=== PATIENT | female | born 1935 | race Caucasian/White ===

== ENCOUNTER 2023-11-04 12:55 | Outpatient (OUT) | payer MEDICARE, OTHER, SELFPAY ==
--- NOTE | 2023-11-04 12:58 | US_ITS ---
The [address] [address] Patient Name: LUIS FELIPE DAVIS MRN: [id number] date: 1935 Sex: F Assigned Patient Location: US Current Patient Location: US Accession/Order Number: [id number] Exam Date: 11/04/2023 13:00 Report Date: 11/04/2023 14:57 At the request of: DUY SARABIA Procedure: US thyroid EXAMINATION: US thyroid HISTORY: Thyroid Nodule E04.1 COMPARISON: No relevant comparison available. TECHNIQUE: Sonographic images of the thyroid gland were obtained. FINDINGS: The right thyroid lobe measures 4.7 x 1.5 x 1.0 cm. Heterogeneous echotexture. No focal nodules. The thyroid isthmus measures 2 mm, heterogeneous. No focal nodule. Left thyroid lobe measures 3.3 x 1.7 x 1.2 cm. 2 focal nodules over 5 mm. One is cystic second lesion: Nodule 1:0.3 x 0.6 x 0.4 cm. Solid, hyperechoic, wide, smooth margins, no calcifications. TR 3 US/US thyroid IMPRESSION: Subcentimeter thyroid nodules the most suspicious 6 mm TR 3 nodule TI-RADS: The [employer] TI-RADS committee's white paper recommendations for thyroid lesions classified as TR3 (mildly suspicious) are listed below: > 1.5 cm. Follow-up ultrasound in 1, 3, and 5 years. > 2.5 cm. FNA. J. Am Simón Radiol 2017;14:587-595. Electronically authenticated by: RUDY TEAGUE Date: 11/04/2023 14:57
== END 2023-11-04 12:56 | disposition home or self-care (01) ==
LOC: US 12:55
PROVIDERS: PCP Internal Medicine; Visit Provider Internal Medicine
DX: E04.1 Nontoxic single thyroid nodule (principal)
CPT/HCPCS: 76536

== ENCOUNTER 2023-11-16 10:23 | Outpatient (OUT) | payer MEDICARE, OTHER, SELFPAY ==
--- OUTSIDE RECORDS SUMMARY | 2023-11-16 10:43 | XMS_ITS | CCD ---
Author Organization [facility] Care Team Providers Care Wax Bleacher Name Role Phone MD Bossman Robledo Attending Provider Chetna Dueñas Unavailable Lazaro Bergman Unavailable ALMA ., DR SANDHYA Mehta Consulting Unavailable BALL, DR GORDILLO Primary Care Unavailable GIRALDO ., DR SANDHYA Mehta Attending Unavailable GIRALDO ., DR SANDHYA Mehta Admitting Unavailable REA ., SANTO Aguila Unavailable CORNELL, DR GORDILLO Primary Care Unavailable GIRALDO ., DR SANDHYA Mehta Attending Unavailable GIRALDO ., DR SANDHYA Mehta Admitting Unavailable REA ., SANTO Aguila Unavailable CORNELL, DR GORDILLO Primary Care Unavailable GIRALDO ., DR SANDHYA Mehta Attending Unavailable GIRALDO ., DR SANDHYA Mehta Admitting Unavailable BALL, DR GORDILLO Primary Care Unavailable HALKER ., JOANNA Attending Unavailable HALKER ., JOANNA Admitting Unavailable BALL, DR GORDILLO Primary Care Unavailable HALKER ., JOANNA Attending Unavailable HALKER ., JOANNA Admitting Unavailable HALKER ., JOANNA Consulting Unavailable CORNELL, DR GORDILLO Primary Care Unavailable LAKSHMIPATHY ., BECCA Attending Bhargavi vailable LAKSHMIPATHY ., BECCA Admitting Bhargavi vailable REA ., SANTO Consulting Unavailable CORNELL, DR GORDILLO Primary Care Unavailable GIRALDO ., DR SANDHYA Mehta Attending Unavailable GIRALDO ., DR SANDHYA Mehta Admitting Unavailable GIRALDO ., DR SANDHYA Mehta Consulting Unavailable CORNELL, DR GORDILLO Primary Care Unavailable GIRALDO ., DR SANDHYA Mehta Attending Unavailable GIRALDO ., DR SANDHYA Mehta Admitting Unavailable BALL, DR GORDILLO Consulting Unavailable BALL, DR GORDILLO Primary Care Unavailable BALL, DR GORDILLO Attending Unavailable BALL, DR GORDILLO Admitting Unavailable HEGG, JASON Consulting Unavailable BALL, DR GORDILLO Consulting Unavailable BALL, DR GORDILLO Primary Care Unavailable BALL, DR GORDILLO Attending Unavailable BALL, DR GORDILLO Admitting Unavailable BALL, DR GORDILLO Consulting Unavailable BALL, DR GORDILLO Primary Care Unavailable BALL, DR GORDILLO Attending Unavailable BALL, DR GORDILLO Admitting Unavailable WEST, DR RUDY Jang Consulting Unavailable CORNELL, DR GORDILLO Consulting Unavailable CORNELL, DR GORDILLO Primary Care Unavailable CORNELL, DR GORDILLO Attending Unavailable CORNELL, DR GORDILLO Admitting Unavailable RONI, DR VIBHA Streeter Consulting Unavailable BALL, DR GORDILLO Consulting Unavailable BALL, DR GORDILLO Primary Care Unavailable BALL, DR GORDILLO Attending Unavailable BALL, DR GORDILLO Admitting Unavailable HOTitus ., DR GONZALEZ Consulting Unavailable HOTitus ., DR GONZALEZ Attending Unavailable HOY ., DR GONZALEZ Admitting Unavailable BALL, DR GORDILLO Primary Care Unavailable WEST, DR RUDY Jang Consulting Unavailable DERBEVERLY, EMILEE Consulting Unavailable CEDRIC ., ROEL Consulting Unavailable BRISA, NHAN Consulting Unavailable ALMA ., DR SANDHYA Mehta Consulting Unavailable CORNELL, DR GORDILLO Primary Care Unavailable ALMA ., DR SANDHYA Mehta Attending Unavailable ALMA ., DR SANDHYA Mehta Admitting Unavailable Yeimi HOLLIS, David Neely Attending Unavailable Neida Whitfield Unavailable Allergies Allergy Classification Reported Allergen(s) Allergy Type Date of Onset Reaction(s) Facility (14 sources) Penicillin G Drug Allergy Unknown [facility] [employer] Other (17 sources) Sulfonamides (Antibiotic) Propensity to adverse reactions Unknown [facility] [employer] Other (2 sources) Allopurinol Drug Allergy 3 [facility] Repository (2 sources) Penicillins Drug allergy (disorder) 3 [facility] Repository (2 sources) Sulfonamides (Antibiotic) Drug allergy (disorder) 3 [facility] Repository (7 sources) Substance with penicillin structure and antibacterial mechanism of action (substance) Drug allergy Unknown [facility] [employer] Other (7 sources) Substance with sulfonamide structure and antibacterial mechanism of action (substance) Drug allergy Unknown [facility] [employer] Other Medications Current Medications Medication Drug Class(es) Dates Sig (Normalized) Sig (Original) acetaminophen 300 mg / codeine phosphate 30 mg oral tablet (5 sources) Opioid Agonist Start: 05-19-2023 take 1 tablet by mouth once daily as needed Acetaminophen-Cod eine 300-30 MG 1 tablet as needed Orally qd as needed May, Active benzonatate 200 mg oral capsule (3 sources) Non-narcotic Antitussive Start: 07-03-2023 take 1 capsule by mouth every eight hours Benzonatate 200 MG 1 capsule Orally Three times a day Jun, Active cephalexin 500 mg oral capsule (3 sources) Cephalosporin Antibacterial Start: 07-03-2023 take 1 capsule by mouth every eight hours Cephalexin 500 MG 1 capsule Orally tid for 10 day(s) Jun, Active fluticasone propionate 0.05 mg/actuat metered dose nasal spray (3 sources) Corticosteroid Start: 07-03-2023 take 2 spray(s) nasal route once daily Fluticasone Propionate 50 MCG/ACT 2 sprays Nasally Once a day for 14 day(s) Jun, Active FreeStyle Lite Test - (16 sources) FreeStyle Lite Test - USE 1 STRIP TO CHECK GLUCOSE ONCE DAILY for 50 Active glimepiride 4 mg oral tablet (20 sources) Sulfonylurea Start: 07-18-2022 Glimepiride 4 MG 1 1/2 Orally Once a day, 30 minutes prior to bkfst Jul, Active Glimepiride 4 MG 1 1/2 tablets 30 minutes prior to bkfst Orally Once a day Not-Taking/PRN hydroCHLOROthiazide 25 mg oral tablet (17 sources) Thiazide Diuretic take 1 tablet by mouth once daily hydroCHLOROthiazide 25 MG Take 1 tablet by mouth once daily Active lisinopril 10 mg oral tablet (20 sources) Angiotensin Converting Enzyme Inhibitor Start: 2022 take 1 tablet by mouth every twenty-four hours Lisinopril 10 MG 1 tablet Orally Once a day Jul, Active loratadine 10 mg oral tablet (2 sources) Start: 2022 take 1 tablet by mouth once daily Claritin 10 MG 1 tablet Orally Once a day for 30 days Sep, Active metFORMIN hydrochloride 500 mg oral tablet (13 sources) Biguanide metFORMIN HCl 50 0 MG Oral Active metFORMIN HCl 50 0 MG Oral Active pioglitazone 15 mg oral tablet (20 sources) Peroxisome Proliferator Receptor alpha Agonist, Peroxisome Proliferator Receptor gamma Agonist, Thiazolidinedione Start: 07-18-2022 take 1 tablet by mouth every twenty-four hours Pioglitazone HCl 15 MG 1 tablet Orally Once a day Jul, Active sertraline 100 mg oral tablet (17 sources) Serotonin Reuptake Inhibitor take 1 tablet by mouth once daily at bedtime Sertraline HCl 100 MG TAKE 1 TABLET BY MOUTH AT BEDTIME Orally Once a day for 30 days Active traMADol hydrochloride 50 mg oral tablet (5 sources) Opioid Agonist Start: 11-01-2022 take 1 tablet by mouth every twenty-four hours traMADol HCl 50 MG 1 tablet as needed Orally Once a day for 30 days Oct, Active Completed/Discontinued Medications Medication Drug Class(es) Dates Sig (Normalized) Sig (Original) carvedilol 12.5 mg oral tablet (17 sources) alpha-Adrenergic Gilbert, beta-Adrenergic Gilbert take 1 tablet by mouth twice daily as needed Carvedilol 12.5 MG Take 1 tablet by mouth twice daily Not-Taking/PRN Dimethyl Sulfoxide (17 sources) Dimethyl Sulfoxi de for 30 Not-Taking/PRN Dimethyl Sulfoxi de for 30 Not-Taking Dimethyl Sulfoxi de for 30 Active ipratropium bromide 0.042 mg/actuat metered dose nasal spray (7 sources) Anticholinergic Start: 03-16-2023 take 2 spray(s) nasal route before mealtime Ipratropium Douglas 0.06 % 2 sprays in each nostril Nasally before meals for 30 days Mar, Not-Taking/PRN Start: 03-16-2023 take 2 spray(s) nasa l route before mealtime Ipratropium Douglas 0.06 % 2 sprays in each nostril Nasally before meals for 30 days Mar, Active omeprazole 40 mg delayed release oral capsule (20 sources) Proton Pump Inhibitor Start: 07-18-2022 take 1 capsule by mouth once daily Omeprazole 40 MG 1 capsule 30 minutes before morning meal Orally Once a day Jul, Not-Taking/PRN Omeprazole 20 MG Oral for 90 Not-Taking/PRN temazepam 15 mg oral capsule (16 sources) Benzodiazepine take 1 capsule by mouth every twenty-four hours Temazepam 15 MG 1 capsule at bedtime as needed Orally Once a day Not-Taking/PRN Problems Active Problems Problem Classification Problem Date Documented Da te Episodic/Chronic Abdominal hernia (2 sources) Diaphragmatic hernia; Translations: [Diaphragmatic hernia without obstruction or gangrene] Episodic Acute bronchitis (2 sources) Acute bronchitis; Translations: [Acute bronchitis due to other specified organisms] Episodic Allergic reactions (2 sources) Urticaria, unspecified Episodic Anxiety disorders (20 sources) Generalized anxiety disorder; Translations: [Generalized anxiety disorder] Chronic Cancer of uterus (20 sources) Malignant neoplasm of endometrium of corpus uteri ; Translations: [Malignant neoplasm of endometrium] Chronic Chronic kidney disease (20 sources) Chronic kidney disease stage 3; Translations: [Stage 3 chronic kidney disease, unspecified whether stage 3a or 3b CKD] Chronic Coagulation and hemorrhagic disorders (16 sources) Primary thrombocytopenia; Translations: [Other primary thrombocytopenia] Chronic Diabetes mellitus with complications (20 sources) Type 2 diabetes mellitus; Translations: [Type 2 diabetes mellitus with hyperglycemia] Onset: 01-07-2015 Chronic Diabetes mellitus without complication (11 sources) Type 2 diabetes mellitus without complications; Translations: [Type 2 diabetes mellitus without complication] Onset: 03-28-2014 Chronic Diseases of mouth; excluding dental (18 sources) Cheilitis; Translations: [Diseases of lips] Episodic Disorders of lipid metabolism (20 sources) Hypercholesterolemia; Translations: [Pure hypercholesterolemia, unspecified] Onset: 12-09-2014 Chronic Esophageal disorders (20 sources) Gastro-esophageal reflux disease with esophagitis; Translations: [Gastro-esophageal reflux disease with esophagitis, without bleeding] Chronic Essential hypertension (20 sources) Essential hypertension; Translations: [Essential (primary) hypertension] Onset: 05-16-2015 Chronic Hypertension with complications and secondary hypertension (20 sources) Chronic kidney disease due to hypertension; Translations: [Hypertensive chronic kidney disease with stage 1 through stage 4 chronic kidney disease, or unspecified chronic kidney disease] Onset: 06-24-2022 Chronic Immunizations and screening for infectious disease (5 sources) Encounter for immunization; Translations: [Contact with and (suspected) exposure to other viral communicable diseases] Onset: 04-05-2017 Resolved: 06-30-2021 Episodic Malaise and fatigue (20 sources) Fatigue; Translations: [Other fatigue] Onset: 04-05-2017 Episodic Menopausal disorders (2 sources) Primary ovarian failure; Translations: [Other primary ovarian failure] Onset: 04-05-2017 Chronic Mood disorders (4 sources) Dysthymia; Translations: [Dysthymic disorder] Onset: 07[birth year]11-1959 Chronic Nonspecific chest pain (4 sources) Chest pain; Translations: [Other chest pain] Resolved: 02-13-2020 Episodic Osteoarthritis (20 sources) Osteoarthritis of joint of right shoulder region; Translations: [Primary osteoarthritis, right shoulder] Onset: 04-07-2015 Chronic Other acquired deformities (1 source) Other forms of scoliosis, lumbar region; Translations: [OTHER FORMS SCOLIOSIS LUMBAR REGION] Onset: 05-23-2022 Chronic Other aftercare (15 sources) H/O: high risk medication; Translations: [Other custodial (current) drug therapy] Episodic Other aftercare (2 sources) Long-term current use of drug therapy; Translations: [Other custodial (current) drug therapy] Episodic Other aftercare (2 sources) Other custodial (current) drug therapy; Translations: [High risk medication use] Episodic Other and unspecified benign neoplasm (16 sources) Adenomatous polyp of colon ; Translations: [Benign neoplasm of colon, unspecified] Episodic Other and unspecified benign neoplasm (17 sources) Polyp of colon; Translations: [Polyp of colon] Episodic Other and unspecified benign neoplasm (2 sources) Benign neoplasm of colon; Translations: [Benign neoplasm of colon, unspecified] Episodic Other and unspecified benign neoplasm (1 source) Polyp of colon; Translations: [Colon polyp] Episodic Other circulatory disease (17 sources) History of cerebrovascular accident without residual deficits; Translations: [Personal history of transient ischemic attack (TIA), and cerebral infarction without residual deficits] Episodic Other circulatory disease (2 sources) Personal history of transient ischemic attack (TIA), and cerebral infarction without residual deficits; Translations: [PERS HX TIA AND CI NO RESID DEFICIT] Onset: 08-06-2022 Episodic Other congenital anomalies (2 sources) Congenital spondylolysis of lumbosacral region; Translations: [Congenital spondylolysis, lumbosacral region] Onset: 07-11-1959 Chronic Other connective tissue disease (15 sources) Pain in limb; Translations: [Pain in right foot] Episodic Other connective tissue disease (2 sources) Pain in right foot; Translations: [Pain in right foot] Episodic Other connective tissue disease (1 source) Pain in right foot; Translations: [Acute pain of right foot] Episodic Other ear and sense organ disorders (19 sources) Impacted cerumen; Translations: [Impacted cerumen, bilateral] Onset: 12-12-2017 Episodic Other ear and sense organ disorders (2 sources) Impacted cerumen, left ear Episodic Other ear and sense organ disorders (1 source) Impacted cerumen, bilateral; Translations: [Ceruminosis, bilateral] Episodic Other gastrointestinal disorders (16 sources) Irritable bowel syndrome with diarrhea; Translations: [Irritable bowel syndrome with diarrhea] Chronic Other gastrointestinal disorders (2 sources) Irritable bowel syndrome; Translations: [Irritable bowel syndrome without diarrhea] Chronic Other injuries and conditions due to external causes (2 sources) History of fall; Translations: [History of falling] Episodic Other lower respiratory disease (17 sources) Solitary nodule of lung; Translations: [Solitary pulmonary nodule] Onset: 01-20-2020 Episodic Other lower respiratory disease (2 sources) Dyspnea; Translations: [Other forms of dyspnea] Episodic Other lower respiratory disease (1 source) Solitary pulmonary nodule; Translations: [Lung nodule] Episodic Other nervous system disorders (16 sources) Chronic pain; Translations: [Other chronic pain] Chronic Other nervous system disorders (1 source) Other specified polyneuropathies; Translations: [OTHER SPECIFIED POLYNEUROPATHIES] Onset: 05-23-2022 Chronic Other nervous system disorders (2 sources) Polyneuropathy; Translations: [Polyneuropathy, unspecified] Chronic Other nervous system disorders (16 sources) Paresthesia; Translations: [Paresthesia of skin] Episodic Other nervous system disorders (4 sources) Paresthesia of skin; Translations: [PARESTHESIA OF SKIN] Onset: 11-04-2022 Episodic Other non-traumatic joint disorders (15 sources) Shoulder joint pain; Translations: [Pain in right shoulder] Episodic Other non-traumatic joint disorders (17 sources) Arthralgia of the pelvic region and thigh; Translations: [Pain in left hip] Episodic Other non-traumatic joint disorders (2 sources) Pain in left hip; Translations: [PAIN IN LEFT HIP] Onset: 09-01-2022 Episodic Other non-traumatic joint disorders (1 source) Pain in right shoulder; Translations: [Pain in right shoulder] Episodic Other nutritional; endocrine; and metabolic disorders (18 sources) Obese class I; Translations: [Obesity, unspecified] Onset: 03-22-2016 Chronic Other nutritional; endocrine; and metabolic disorders (1 source) Obesity, unspecified Chronic Other nutritional; endocrine; and metabolic disorders (2 sources) Simple obesity ; Translations: [Other obesity due to excess calories] Onset: 03-22-2016 Chronic Other nutritional; endocrine; and metabolic disorders (2 sources) Obesity; Translations: [Obesity, unspecified] Chronic Other nutritional; endocrine; and metabolic disorders (8 sources) Body mass index 30+ - obesity; Translations: [Body mass index 31.0-31.9, adult] Onset: 03-22-2016 Chronic Other nutritional; endocrine; and metabolic disorders (4 sources) Obesity caused by energy imbalance; Translations: [Other obesity due to excess calories] Chronic Other nutritional; endocrine; and metabolic disorders (1 source) Other obesity due to excess calories Chronic Other nutritional; endocrine; and metabolic disorders (1 source) Body mass index (BMI) 31.0-31.9, adult Chronic Other screening for suspected conditions (not mental disorders or infectious disease) (4 sources) Abnormal findings on diagnostic imaging of breast; Translations: [Other abnormal and inconclusive findings on diagnostic imaging of breast] Onset: 04-18-2017 Episodic Other upper respiratory disease (7 sources) Vasomotor rhinitis; Translations: [Vasomotor rhinitis] Chronic Other upper respiratory disease (1 source) Vasomotor rhinitis Chronic Other upper respiratory infections (3 sources) Acute sinusitis; Translations: [Acute sinusitis, unspecified] Onset: 12-09-2014 Episodic Residual codes; unclassified (2 sources) Tobacco user; Translations: [Tobacco use] Episodic Residual codes; unclassified (1 source) Asymptomatic menopausal state Episodic Rheumatoid arthritis and related disease (2 sources) Inflammatory polyarthropathy; Translations: [Unspecified inflammatory polyarthropathy] Onset: 04-21-2015 Chronic Skin and subcutaneous tissue infections (18 sources) Impetigo follicularis ; Translations: [Bockhart's impetigo] Episodic Spondylosis; intervertebral disc disorders; other back problems (20 sources) Lumbar spondylosis; Translations: [Spondylosis without myelopathy or radiculopathy, lumbar region] Onset: 05-25-2022 Chronic Spondylosis; intervertebral disc disorders; other back problems (7 sources) Muscle spasm of back; Translations: [Spinal stenosis, lumbar region without neurogenic claudication] Onset: 05-18-2022 Episodic Sprains and strains (20 sources) Strain of muscle, fascia and tendon of the posterior muscle group at thigh level, left thigh, initial encounter; Translations: [Sprain of ankle] Episodic Thyroid disorders (20 sources) Non-toxic uninodular goiter; Translations: [Nontoxic single thyroid nodule] Onset: 11-09-2022 Chronic Transient cerebral ischemia (19 sources) Transient cerebral ischemia; Translations: [Transient cerebral ischemic attack, unspecified] Onset: 11-01-2022 Chronic Unclassified (4 sources) LOW BACK PAIN, UNSPECIFIED; Translations: [LOW BACK PAIN, UNSPECIFIED] Onset: 08-30-2022 Unclassified (1 source) CONTACT W/AND (SUSP) EXPOS COVID-19; Translations: [CONTACT W/AND (SUSP) EXPOS COVID-19] Onset: 08-06-2022 Unclassified (1 source) CHRN KIDNEY DISEASE STG 3 UNSP; Translations: [CHRN KIDNEY DISEASE STG 3 UNSP] Onset: 06-28-2022 Past or Other Problems Problem Classification Problem Date Documented Da te Episodic/Chronic Abdominal pain (4 sources) Lower abdominal pain; Translations: [Lower abdominal pain, unspecified] Onset: 06-27-2017 Episodic Chronic kidney disease (9 sources) Chronic kidney disease; Translations: [Stage 3 chronic kidney disease, unspecified whether stage 3a or 3b CKD] Esophageal disorders (15 sources) Esophageal disorders; Translations: [Gastroesophageal reflux disease with esophagitis without hemorrhage] Other aftercare (1 source) adjunct faculty for medical terminology (current) use of aspirin; Translations: [[employer] CURRENT USE OF ASPIRIN] Onset: 08-06-2022 Episodic Other aftercare (1 source) adjunct faculty for medical terminology (current) use of oral hypoglycemic drugs; Translations: [[employer] USE ORAL HYPOGLYCEMIC DX] Onset: 08-06-2022 Episodic Other connective tissue disease (1 source) Other muscle spasm; Translations: [OTHER MUSCLE SPASM] Onset: 05-23-2022 Episodic Other connective tissue disease (2 sources) Trochanteric bursitis of left hip; Translations: [Trochanteric bursitis, left hip] Resolved: 06-10-2022 Episodic Other connective tissue disease (2 sources) Spasm; Translations: [Spasm of muscle] Onset: 03-09-2019 Episodic Other injuries and conditions due to external causes (2 sources) Contusion of back; Translations: [Contusion of back] Onset: 12-09-2014 Episodic Other nervous system disorders (4 sources) Anesthesia of skin; Translations: [ANESTHESIA OF SKIN] Onset: 08-02-2022 Episodic Residual codes; unclassified (2 sources) Requires influenza virus vaccination; Translations: [Need for prophylactic vaccination and inoculation, Influenza] Onset: 04-05-2013 Episodic Unclassified (1 source) LOW BACK PAIN, UNSPECIFIED; Translations: [LOW BACK PAIN, UNSPECIFIED] Onset: 09-16-2022 Unclassified (1 source) Acute cough R05.1 Viral infection (16 sources) Disease caused by 2019-nCoV; Translations: [COVID-19] Results Test Name Value Interpretation Reference Range Facility US THYROIDon 11-09-2022 US THYROID EXAMINATION: US THYR OID HISTORY: Non-toxic uninodular goiter COMPARISON: Ultrasound thyroid 03/24/2021 FINDINGS: RIGHT LOBE: Heterogeneous echotexture and contains a stable 2.7 cm TR 2 nodule. Lobe size: 5.2 x 2.7 x 2.0 cm LEFT LOBE: Heterogeneous echotexture and contains a stable 7 mm colloid cyst and a 9 mm TR 3 nodule. Lobe size: 2.8 x 1.6 x 1.5 cm ISTHMUS: Normal size and echotexture. Thickness: 2 mm IMPRESSION: 1. Slightly limited examination due to patient body habitus. 2. Grossly stable thyroid gland; no overtly suspicious findings. TI-RADS 2: Benign nodules. Noticeably benign pattern (0% risk of malignancy) TR3 (mildly suspicious): > 1.5 cm, follow-up ultrasound in 1, 3, and 5 years. > 2.5 cm, fine needle aspiration. Electronically authenticated by: VIBHA TAMAYO Date: 2022-11-09 14:28 Normal [facility] IMMUNOFIXATION(ALI),PROTEIN ELEC(PE),FREon 11-02-2022 Albumin [Mass/Vol] 3.3 g/dL Normal 2.9-4.4 [facility] Comment on above: Performed By: #### C RP, CMP #### [facility] [address] [address] [address] César Christianson Albumin/Globulin [Mass ratio] 1.2 {ratio} Normal 0.7-1.7 [facility] Comment on above: Performed By: #### C RP, CMP #### [facility] [address] [address] [address] César Christianson Lcnxq-4-Chlvaoca 0.2 g/dL Normal 0.0-0.4 [facility] Comment on above: Performed By: #### C RP, CMP #### [facility] [address] [address] [address] César Christianson Euykz-2-Clcgjkru 0.8 g/dL Normal 0.4-1.0 [facility] Comment on above: Performed By: #### C RP, CMP #### [facility] [address] [address] [address] César Christianson Beta Globulin 1.0 g/dL Normal 0.7-1.3 [facility] Comment on above: Performed By: #### C RP, CMP #### [facility] [address] [place] [address] Dr. César Christianson Free [place] Lt Chains,S 27.9 mg/L Critically high 3.3-19.4 [facility] Comment on above: Performed By: #### C RP, CMP #### [facility] [address] [place] [address] Dr. César Christianson Free Lambda Lt Chains,S 17.2 mg/L Normal 5.7-26.3 [facility] Comment on above: Performed By: #### C RP, CMP #### [facility] [address] [place] [address] Dr. César Christianson Gamma Globulin 0.8 g/dL Normal 0.4-1.8 [facility] Comment on above: Performed By: #### C RP, CMP #### [facility] [address] [place] [address] Dr. César Christianson Globulin (S) [Mass/Vol] 2.9 g/dL Normal 2.2-3.9 [facility] Comment on above: Performed By: #### C RP, CMP #### [facility] [address] [place] [address] Dr. César Christianson Immunofixation Result, Serum Comment Normal [facility] Comment on above: Result Comment: No m onoclonality detected. Performed By: #### C RP, CMP #### [facility] [address] [place] [address] Dr. César Christianson Immunoglobulin A, Qn, Serum 222 mg/dL Normal 64-422 [facility] Comment on above: Performed By: #### C RP, CMP #### [facility] [address] [address] [address] César Christianson Immunoglobulin G, Qn, Serum 805 mg/dL Normal 586-1602 [facility] Comment on above: Performed By: #### C RP, CMP #### [facility] [address] [address] [address] César Christianson Immunoglobulin M, Qn, Serum 90 mg/dL Normal 26-217 [facility] Comment on above: Performed By: #### C RP, CMP #### [facility] [address] [address] [address] César Christianson Camanche/Lambda Ratio, S 1.62 Normal 0.26-1.65 [facility] Comment on above: Performed By: #### C RP, CMP #### [facility] [address] [place] [address] Dr. César Christianson M-Vu Not Observed Normal Not Observed [facility] Comment on above: Performed By: #### C RP, CMP #### [facility] [address] [place] [address] Dr. César Christianson PDF . Normal [facility] Comment on above: Performed By: #### C RP, CMP #### [facility] [address] [place] [address] Dr. César Christianson Please note: Comment Normal [facility] Comment on above: Result Comment: Prot ein electrophoresis scan will follow via computer, mail, or monogram and letter paster delivery. Performed By: #### C RP, CMP #### [facility] [address] [place] [address] Dr. César Christianson Protein [Mass/Vol] 6.2 g/dL Normal 6.0-8.5 [facility] Comment on above: Performed By: #### C RP, CMP #### [facility] [address] [place] [address] Dr. César Christianson FERRITINon 11-01-2022 Ferritin [Mass/Vol] 161.0 ng/mL Normal 8.0-252.0 [facility] Comment on above: Performed By: #### C RP, CMP #### [facility] [address] [address] [address] César Christianson TSHon 11-01-2022 TSH 1.069 uIU/mL Normal 0.358-3.740 [facility] Comment on above: Performed By: #### C RP, CMP #### [facility] [address] [address] [address] César Christianson VITAMIN B12on 11-01-2022 Cobalamin (Vitamin B12) [Mass/Vol] 1536.0 pg/mL Critically high 193.0-986.0 [facility] Comment on above: Performed By: #### C RP, CMP #### [facility] [address] [address] [address] César Christianson MRI BRAIN WO CONon MRI BRAIN WO CON EXAM: MRI of the bra in without IV contrast. Dose reduction technique used: Automated exposure control and/or adjustment of the mA and/or kV according to patient size and/or use of iterative reconstruction technique. REASON FOR EXAM: Transient cerebral ischemia, left arm numbness COMPARISON: CT scan dated 08/02/2022 FINDINGS: No intracranial masses. No abnormal restricted diffusion or evidence of evolving infarct. No evidence of intracranial hemorrhage. No hydrocephalus. Small old posterior right frontal infarct. Tiny old left posterior frontal cortex infarct. Small old left occipital infarct. Old left cerebellar lacunar infarcts. Moderate generalized cerebral and cerebellar volume loss. Minimal small vessel gliosis. Paranasal sinuses and mastoid air cells are clear. Remainder unremarkable. IMPRESSION: 1. No acute intracranial abnormalities. 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 Electronically authenticated by: JASON QUILES Date: 2022-09-22 14:54 Normal [facility] MRI BRAIN WO [facility] Other POINT OF CARE GLUCOSEon 08-12 Glucose [Mass/Vol] 194 mg/dL Critically high 74-106 [facility] Comment on above: Performed By: #### E LUIS IBARRA #### [facility] [address] [address] [address] César Christianson CBC AUTO DIFFon 08-03-2022 BASO # 0.1 103/ul Normal 0.0-0.1 [facility] Comment on above: Performed By: #### LUIS PAIGE #### [facility] [address] [place] [address] Dr. César Christianson Basophils/100 WBC (Bld) 0.8 % Normal 0.2-2.0 [facility] Comment on above: Performed By: #### LUIS PAIGE #### [facility] [address] [place] [address] Dr. César Christianson EO # 0.3 103/ul Normal 0.0-0.7 [facility] Comment on above: Performed By: #### LUIS PAIGE #### [facility] [address] [place] [address] Dr. César Christianson Eosinophils/100 WBC (Bld) 4.6 % Normal 0.9-7.0 [facility] Comment on above: Performed By: #### LUIS PAIGE #### [facility] [address] [place] [address] Dr. César Christianson Erythrocyte distribution width (RBC) [Ratio] 13.6 % Normal 11.0-15.0 [facility] Comment on above: Performed By: #### LUIS PAIGE #### [facility] [address] [place] [address] Dr. César Christianson Hematocrit (Bld) [Volume fraction] 36.3 % Normal 36.0-48.0 [facility] Comment on above: Performed By: #### KOLE PAIGERO #### [facility] [address] [place] [address] Dr. César Christianson Hemoglobin (Bld) [Mass/Vol] 12.2 g/dL Normal 12.0-16.0 [facility] Comment on above: Performed By: #### KOLE PAIGERO #### [facility] [address] [place] [address] Dr. César Christianson IG # 0.02 10e3/ul Normal 0.00-0.03 [facility] Comment on above: Performed By: #### Deejay IBARRA UMICRO #### [facility] [address] [place] [address] Dr. César Christianson IG % 0.3 % Normal 0.0-0.5 [facility] Comment on above: Performed By: #### Deejay IBARRA UMICRO #### [facility] [address] [place] [address] Dr. César Christianson LYMPH # 2.2 103/ul Normal 1.2-3.8 [facility] Comment on above: Performed By: #### E FRED UMICRO #### [facility] [address] [place] [address] Dr. César Christianson Lymphocytes/100 WBC (Bld) 33.9 % Normal 20.5-60.0 [facility] Comment on above: Performed By: #### Deejay IBARRA UMICRO #### [facility] [address] [place] [address] Dr. César Christianson MANUAL DIFF REQ NO Normal [facility] Comment on above: Performed By: #### Deejay IBARRA UMICRO #### [facility] [address] [place] [address] Dr. César Christianson MCH (RBC) [Entitic mass] 32.3 pg Normal 26.7-34.0 [facility] Comment on above: Performed By: #### Deejay IBARRA UMICRO #### [facility] [address] [place] [address] Dr. César Christianson MCHC (RBC) [Mass/Vol] 33.6 g/dL Normal 29.9-35.2 [facility] Comment on above: Performed By: #### E FRED UMICRO #### [facility] [address] [place] [address] Dr. César Christianson MCV (RBC) [Entitic vol] 96.0 fL Normal 81.0-99.0 [facility] Comment on above: Performed By: #### Deejay IBARRA, UMICRO #### [facility] [address] [place] [address] Dr. César Christianson MONO # 0.5 103/ul Normal 0.3-0.8 [facility] Comment on above: Performed By: #### LUIS PAIGE #### [facility] [address] [place] [address] Dr. César Chritsianson Monocytes/100 WBC (Bld) 6.9 % Normal 1.7-12.0 [facility] Comment on above: Performed By: #### LUIS PAIGE #### [facility] [address] [place] [address] Dr. César Christianson NEUT # 3.5 103/ul Normal 1.4-6.5 [facility] Comment on above: Performed By: #### LUIS PAIGE #### [facility] [address] [place] [address] Dr. César Christianson Neutrophils/100 WBC (Bld) 53.5 % Normal 43.0-75.0 [facility] Comment on above: Performed By: #### LUIS PAIGE #### [facility] [address] [place] [address] Dr. César Christianson Platelet mean volume (Bld) [Entitic vol] 10.1 fL Normal 9.5-13.5 [facility] Comment on above: Performed By: #### LUIS PAIGE #### [facility] [address] [place] [address] Dr. César Christianson PLT 126 103/ul Critically low 150-450 [facility] Comment on above: Performed By: #### KOLE PAIGERO #### [facility] [address] [place] [address] Dr. César Christianson RBC 3.78 106/ul Critically low 4.20-5.40 [facility] Comment on above: Performed By: #### LUIS PAIGE #### [facility] [address] [place] [address] Dr. César Christianson WBC 6.5 103/ul Normal 4.0-11.0 [facility] Comment on above: Performed By: #### LUIS PAIGE #### [facility] [id number] César Christianson CRPon 08-03-2022 CRP [Mass/Vol] mg/L Normal <=1.0 [facility] Comment on above: Performed By: #### C RP, CMP #### [facility] [address] [place], [place] [address] Dr. César Christianson CULTURE URINEon 08-03-2022 CULTURE URINE Culture Observations : LIGHT GROWTH OF MIXED GENITAL ERIKA. NO POTENTIAL PATHOGENS SEEN. Normal [facility] Comment on above: Performed By: #### C RP, CMP #### [facility] [address] [address] [address] César Christianson ECHOCARDIO M/2D COMPLETEon 0 08-03-2022 ECHOCARDIO M/2D COMPLETE Patient: LUIS FELIPE DAVIS Exam Date: 08/03/2022 : 1935 Gender:F Ordering : DR CARLOS PRUETT . Admission #: [id number] Family : Order #: [id number] CLICK HERE TO VIEW EXAM ECHOCARDIOGRAM REPORT PROCEDURE: CARDIO PULMONARY ECHOCARDIO M/2D COMP INDICATIONS: Extremity weakness, CVA symptoms COMPARISON: None. DESCRIPTION: COMPLETE ECHOCARDIOGRAM Real-time transthoracic echocardiography with 2D, M-mode, spectral and color flow Doppler performed. QUALITY: Technical quality was good. LEFT VENTRICLE: Normal chamber size. Mild concentric left ventricular hypertrophy. Global left ventricular systolic function is normal. LV EF: Calculated left ventricular ejection fraction is 70%. DIASTOLIC: Grade I diastolic dysfunction. ATRIAL SEPTUM: Agitated saline contrast does not reveal an intra-cardiac shunt. LEFT ATRIUM: Normal chamber size. RIGHT ATRIUM: Mild dilatation. RIGHT VENTRICLE: Normal chamber size. Normal right ventricular systolic function. TRICUSPID VALVE: Normal mobility and thickness. No stenosis with trivial regurgitation. Unable to assess right-sided pressures due to lack of measurable tricuspid regurgitation. MITRAL VALVE: Normal mobility and thickness. No mitral valve prolapse. No evidence of mitral valve stenosis. There is no mitral annular calcification. Trivial mitral regurgitation. AORTIC VALVE: Normal trileaflet appearance. Thickened aortic valve. Normal leaflet mobility. No evidence of aortic valve stenosis. No aortic regurgitation. AORTIC ROOT: Normal diameter and appearance. PULMONIC VALVE: Normal thickness and mobility. No stenosis. Trivial regurgitation. PERICARDIUM: No evidence of pericardial effusion. IVC: Collapses with inspirations. Normal size. PLEURA: CONCLUSION: 1. Mild concentric left ventricular hypertrophy. Normal ventricular systolic function. LVEF is 70%. 2. No significant valvular dysfunction. 3. No evidence of intracardiac shunt by agitated saline injections. 4. No pericardial effusion. Adult Echocardiography Procedure Report Left Ventricle LVEDD (3.7 - 5.6 cm): 4.26 cm LVESD (2.2 - 4.0 cm): 2.83 cm LVIVS thickness (0.6 - 1.2 cm): 1.14 cm LVPW thickness (0.5 - 1.0 cm): 1.20 cm e': 0.06 m/s E - e': 14.35 LVOT Max Gradient: 3.71 mm[Hg] Peak Velocity (LVOT): 0.96 m/s Mean Velocity (LVOT): 0.69 m/s LVOT Diameter 1.68 cm Left Ventricular Ejection Fraction: 70% Left Atrium LA Volume Index (2D A2C): 49.27 ml, 49.27 ml Left Atrium Systolic Dimension: 3.60 cm Mitral Valve MV E to A Ratio: 0.77 Mitral Valve A-Wave Peak Velocity: 1.15 m/s Mitral Valve E-Wave Peak Velocity: 0.89 m/s Right Ventricle RV Internal Diastolic Dimension: 2.74 cm Aorta AO Root Diam: 2.86 cm Ascending Ao Diam: 3.13 cm Aortic Valve Peak Velocity(Antegrade Flow): 1.70 m/s Peak Gradient(Antegrade Flow): 11.50 mm[Hg] Mean Velocity(Antegrade Flow): 1.16 m/s Mean Gradient(Antegrade Flow): 5.88 mm[Hg] Velocity Time Integral: 40.74 cm Tricuspid Valve Peak Velocity (Regurgitant Flow): 1.47 m/s, 1.78 m/s, 1.54 m/s Pulmonic Valve Peak Velocity: 0.97 m/s, 0.93 m/s Peak Gradient: 3.79 mm[Hg], 3.43 mm[Hg] Right Atrium Right Atrium Systolic Pressure: 40.40 ml, 40.40 ml Dictated by: Mathew Das M.D. on 08/04/2022 at 17:51 Approved by: Mathew Das M.D. on 08/04/2022 at 17:59 Normal [facility] ER URINE PROFILEon 3 Bilirubin Ql (U) Negative Normal NEGATIVE [facility] Comment on above: Performed By: #### KEEGAN PAIGEICRO #### [facility] [address] [place] [address] Dr. César Christianson Clarity (U) CLEAR Normal CLEAR [facility] Comment on above: Performed By: #### Deejay IBARRA UMICRO #### [facility] [address] [place] [address] Dr. César Christianson Color (U) LT. YELLOW Normal YELLOW [facility] Comment on above: Performed By: #### Deejay IBARRA UMICRO #### [facility] [address] [place] [address] Dr. César FARRIS A micrscopic examination will be performed if indicated. Normal [facility] Comment on above: Performed By: #### Deejay IBARRA UMICRO #### [facility] [address] [place] [address] Dr. César Christianson Glucose Ql (U) Negative Normal NEGATIVE [facility] Comment on above: Performed By: #### Deejay IBARRA UMICRO #### [facility] [address] [place] [address] Dr. César Christianson Hemoglobin Ql (U) Negative Normal NEGATIVE [facility] Comment on above: Performed By: #### Deejay IBARRA UMICRO #### [facility] [address] [place] [address] Dr. César Christianson Ketones Ql (U) Negative Normal NEGATIVE [facility] Comment on above: Performed By: #### Deejay IBARRA UMICRO #### [facility] [address] [place] [address] Dr. César Christianson LEUKOCYTES TRACE Abnormal NEGATIVE [facility] Comment on above: Performed By: #### Deejay IBARRA UMICRO #### [facility] [address] [place] [address] Dr. César Christianson Nitrite Ql (U) Negative Normal NEGATIVE [facility] Comment on above: Performed By: #### Deejay IBARRA UMICRO #### [facility] [address] [place] [address] Dr. César Christianson pH (U) 5.0 [pH] Normal 5-9 [facility] Comment on above: Performed By: #### Deejay IBARRA, UMICRO #### [facility] [address] [place] [address] Dr. César Christianson SPEC GRAVITY 1.025 Normal 1.005-<=1.02 5 [facility] Comment on above: Performed By: #### Deejay IBARRA, UMICRO #### [facility] [address] [place] [address] Dr. César Christianson UA PROTEIN Negative Normal NEGATIVE/ TRACE [facility] Comment on above: Performed By: #### Deejay IBARRA UMICRO #### [facility] [address] [place] [address] Dr. César Christianson UR MICRO IND INDICATED Normal [facility] Comment on above: Performed By: #### Deejay IBARRA UMICRO #### [facility] [address] [place] [address] Dr. César Christianson Urobilinogen Qn (U) 0.2 {Angel'U}/dL Normal 0.2 - 1. 0 [facility] Comment on above: Performed By: #### Deejay IBARRA, UMICRO #### [facility] [address] [place] [address] Dr. César Christianson POINT OF CARE GLUCOSEon 07-12 Glucose [Mass/Vol] 145 mg/dL Critically high 74-106 [facility] Comment on above: Performed By: #### Deejay IBARRA, UMICRO #### [facility] [address] [place] [address] Dr. César Christianson PROF 14(COMP METB)on 023 Albumin [Mass/Vol] 2.9 g/dL Critically low 3.4-5.0 [facility] Comment on above: Performed By: #### C RP, CMP #### [facility] [address] [place] [address] Dr. César Christianson Albumin/Globulin [Mass ratio] 0.9 {ratio} Normal [facility] Comment on above: Performed By: #### C RP, CMP #### [facility] [address] [place] [address] Dr. César Christianson ALP [Catalytic activity/Vol] 80 U/L Normal 46-116 [facility] Comment on above: Performed By: #### C RP, CMP #### [facility] [address] [place] [address] Dr. César Christianson ALT [Catalytic activity/Vol] 23 U/L Normal 14-59 [facility] Comment on above: Performed By: #### C RP, CMP #### [facility] [address] [place] [address] Dr. César Christianson Anion gap [Moles/Vol] 9.0 mmol/L Normal [facility] Comment on above: Performed By: #### C RP, CMP #### [facility] [address] [place] [address] Dr. César Christianson AST [Catalytic activity/Vol] 14 U/L Critically low 15-37 [facility] Comment on above: Performed By: #### C RP, CMP #### [facility] [address] [place] [address] Dr. César Christianson Bilirubin [Mass/Vol] 0.3 mg/dL Normal 0.2-1.0 [facility] Comment on above: Performed By: #### C RP, CMP #### [facility] [address] [place] [address] Dr. César Christianson Calcium [Mass/Vol] 9.1 mg/dL Normal 8.5-10.1 [facility] Comment on above: Performed By: #### C RP, CMP #### [facility] [address] [place] [address] Dr. César Christianson Chloride [Moles/Vol] 103 mmol/L Normal 98-107 [facility] Comment on above: Performed By: #### C RP, CMP #### [facility] [address] [place] [address] Dr. César Christianson CO2 [Moles/Vol] 31.6 mmol/L Normal 21.0-32.0 [facility] Comment on above: Performed By: #### C RP, CMP #### [facility] [address] [place] [address] Dr. César Christianson Creatinine [Mass/Vol] 0.97 mg/dL Normal 0.55-1.02 [facility] Comment on above: Performed By: #### C RP, CMP #### [facility] [address] [address] [address] César Christianson EGFR-AF [facility] >60 Normal >=60 [facility] Comment on above: Performed By: #### C RP, CMP #### [facility] [address] [place] [address] Dr. César Christianson EGFR-NON AF [facility] 54 mL/min/1.73m2 Critically low >=60 [facility] Comment on above: Performed By: #### C RP, CMP #### [facility] [address] [place] [address] Dr. César Christianson Globulin (S) [Mass/Vol] 3.1 g/dL Normal [facility] Comment on above: Performed By: #### C RP, CMP #### [facility] [address] [place] [address] Dr. César Christianson Glucose [Mass/Vol] 126 mg/dL Critically high 74-106 [facility] Comment on above: Performed By: #### C RP, CMP #### [facility] [address] [place] [address] Dr. César Christianson Potassium [Moles/Vol] 3.6 mmol/L Normal 3.5-5.1 [facility] Comment on above: Performed By: #### C RP, CMP #### [facility] [address] [place] [address] Dr. César Christianson Protein [Mass/Vol] 6.0 g/dL Critically low 6.4-8.[address] [facility] Comment on above: Performed By: #### C RP, CMP #### [facility] [address] [place] [address] Dr. César Christianson Sodium [Moles/Vol] 140 mmol/L Normal 136-145 [facility] Comment on above: Performed By: #### C RP, CMP #### [facility] [address] [place] [address] Dr. César Christianson Urea nitrogen [Mass/Vol] 27.0 mg/dL Critically high 7.0-18.0 [facility] Comment on above: Performed By: #### C RP, CMP #### [facility] [address] [place] [address] Dr. César Christianson Urea nitrogen/Creatinine [Mass ratio] 27.8 mg/mg Normal [facility] Comment on above: Performed By: #### C RP, CMP #### [facility] [address] [place] [address] Dr. César Christianson URINE MICROSCOPIC ONLYon BACTERIA TRACE Abnormal NONE SEEN [facility] Comment on above: Performed By: #### E FRED UMICRO #### [facility] [address] [place] [address] Dr. César Christianson Bacteria identified Cx Nom (U) NOT INDICATED Normal [facility] Comment on above: Performed By: #### Deejay IBARRA UMICRO #### [facility] [address] [place] [address] Dr. César Christianson CAST NONE SEEN Normal NONE SEEN [facility] Comment on above: Performed By: #### E RUR, UMICRO #### [facility] [address] [place] [address] Dr. César Christianson Crystals LM Nom (Urine sed) NONE SEEN Normal NONE SEEN [facility] Comment on above: Performed By: #### E RUR, UMICRO #### [facility] [address] [place] [address] Dr. César Christianson Epithelial cells LM Ql (Urine sed) FEW Abnormal NONE SEEN /RARE [facility] Comment on above: Performed By: #### E RUR, UMICRO #### [facility] [address] [place] [address] Dr. César Christianson MUCOUS NONE SEEN Normal NONE SEEN [facility] Comment on above: Performed By: #### LUIS PAIGE #### [facility] [address] [place] [address] Dr. César Christianson RBC 0-2 Normal 0-2 [facility] Comment on above: Performed By: #### LUIS PAIGE #### [facility] [address] [place] [address] Dr. César Christianson WBC 2-5 Abnormal NONE SEEN [facility] Comment on above: Performed By: #### LUIS PAIGE #### [facility] [address] [place] [address] Dr. César Christianson BNPon 08-02-2022 Natriuretic peptide B (Bld) [Mass/Vol] 147.0 pg/mL Normal <=1,800.0 [facility] Comment on above: Performed By: #### C MADM, BNP, CMP #### [facility] [address] [place] [address] Dr. César Christianson CARDIAC ALEX ADMITon 023 CK [Catalytic activity/Vol] 29 U/L Normal 26-192 [facility] Comment on above: Performed By: #### C MADM, BNP, CMP #### [facility] [address] [place] [address] Dr. César Christianson CK.MB [Mass/Vol] 0.99 ng/mL Normal <=3.60 [facility] Comment on above: Performed By: #### C MADM, BNP, CMP #### [facility] [address] [place] [address] Dr. César Christianson HSTROP 5.9 pg/mL Normal 4.0-51.3 [facility] Comment on above: Result Comment: CUT- OFF POINTS HAVE BEEN ESTABLISHED BASED ON THE FOURTH UNIVERSAL DEFINITIONS OF MYOCARDIAL INFARCTION. THE UPPER REFERENCE LIMIT (URL) OF TROPONIN, DEFINED THE 99TH PERCENTILE OF cTnI DISTRIBUTION IN A REFERENCE POPULATION, HAS BEEN CONFIRMED THE DECISION THRESHOLD FOR SC DIAGNOSIS. Performed By: #### C MADM, BNP, CMP #### [facility] [address] [place] [address] Dr. César Christianson HAILY 46 ng/mL Normal 9-82 [facility] Comment on above: Performed By: #### C MADM, BNP, CMP #### [facility] [address] [place] [address] Dr. César Christianson CBC AUTO DIFFon 08-02-2022 BASO # 0.1 103/ul Normal 0.0-0.1 [facility] Comment on above: Performed By: #### KOLE PAIGERO #### [facility] [address] [place] [address] Dr. César Christianson Basophils/100 WBC (Bld) 1.0 % Normal 0.2-2.0 [facility] Comment on above: Performed By: #### KOLE PAIGERO #### [facility] [address] [place] [address] Dr. César Christianson EO # 0.4 103/ul Normal 0.0-0.7 [facility] Comment on above: Performed By: #### KOLE PAIGERO #### [facility] [address] [place] [address] Dr. César Christianson Eosinophils/100 WBC (Bld) 5.4 % Normal 0.9-7.0 [facility] Comment on above: Performed By: #### KOLE PAIGERO #### [facility] [address] [place] [address] Dr. César Christianson Erythrocyte distribution width (RBC) [Ratio] 13.6 % Normal 11.0-15.0 [facility] Comment on above: Performed By: #### KOLE PAIGERO #### [facility] [address] [place] [address] Dr. César Christianson Hematocrit (Bld) [Volume fraction] 39.0 % Normal 36.0-48.0 [facility] Comment on above: Performed By: #### KOLE PAIGERO #### [facility] [address] [place] [address] Dr. César Christianson Hemoglobin (Bld) [Mass/Vol] 13.7 g/dL Normal 12.0-16.0 [facility] Comment on above: Performed By: #### E RUR, UMICRO #### [facility] [address] [address] [address] César Christianson IG # 0.04 10e3/ul Critically high 0.00-0.03 [facility] Comment on above: Performed By: #### E RUR, UMICRO #### [facility] [address] [place] [address] Dr. César Christianson IG % 0.5 % Normal 0.0-0.5 [facility] Comment on above: Performed By: #### E RUR, UMICRO #### [facility] [address] [place] [address] Dr. César Christianson LYMPH # 2.4 103/ul Normal 1.2-3.8 [facility] Comment on above: Performed By: #### E RUR, UMICRO #### [facility] [address] [place] [address] Dr. César Christianson Lymphocytes/100 WBC (Bld) 31.2 % Normal 20.5-60.0 [facility] Comment on above: Performed By: #### Deejay IBARRA, UMICRO #### [facility] [address] [place] [address] Dr. César Christianson MANUAL DIFF REQ NO Normal [facility] Comment on above: Performed By: #### E RUR, UMICRO #### [facility] [address] [place] [address] Dr. César Christianson MCH (RBC) [Entitic mass] 32.2 pg Normal 26.7-34.0 [facility] Comment on above: Performed By: #### E RUR, UMICRO #### [facility] [address] [place] [address] Dr. César Christianson MCHC (RBC) [Mass/Vol] 35.1 g/dL Normal 29.9-35.2 [facility] Comment on above: Performed By: #### E RUR, UMICRO #### [facility] [address] [place] [address] Dr. César Christianson MCV (RBC) [Entitic vol] 91.5 fL Normal 81.0-99.0 [facility] Comment on above: Performed By: #### LUIS PAIGE #### [facility] [address] [place] [address] Dr. César Christianson MONO # 0.6 103/ul Normal 0.3-0.8 [facility] Comment on above: Performed By: #### LUIS PAIGE #### [facility] [address] [place] [address] Dr. César Christianson Monocytes/100 WBC (Bld) 7.2 % Normal 1.7-12.0 [facility] Comment on above: Performed By: #### LUIS PAIGE #### [facility] [address] [place] [address] Dr. César Christianson NEUT # 4.2 103/ul Normal 1.4-6.5 [facility] Comment on above: Performed By: #### LUIS PAIGE #### [facility] [address] [place] [address] Dr. César Christianson Neutrophils/100 WBC (Bld) 54.7 % Normal 43.0-75.0 [facility] Comment on above: Performed By: #### LUIS PAIGE #### [facility] [address] [place] [address] Dr. César Christianson Platelet mean volume (Bld) [Entitic vol] 10.1 fL Normal 9.5-13.5 [facility] Comment on above: Performed By: #### KOLE PAIGERO #### [facility] [address] [place] [address] Dr. César Christianson PLT 157 103/ul Normal 150-450 [facility] Comment on above: Performed By: #### KOLE PAIGERO #### [facility] [address] [place] [address] Dr. César Christianson RBC 4.26 106/ul Normal 4.20-5.40 [facility] Comment on above: Performed By: #### LUIS PAIGE #### [facility] [address] [place], [place] [address] Dr. César Christianson WBC 7.6 103/ul Normal 4.0-11.0 [facility] Comment on above: Performed By: #### LUIS PAIGE #### [facility] [address] [place], [place] [address] Dr[address]ésar [address] CT STROKE HEAD WOon 08-02-[address] STROKE HEAD WO NONCONTRAST HEAD CT COMPARISON: None. CLINICAL HISTORY: Left hand numbness. TECHNIQUE: Routine noncontrast images of the brain obtained. CT examination of the head without IV contrast. Dose reduction techniques were achieved by using: automated exposure control and/or adjustment of mA and /or kV according to patient size and/or use of iterative reconstruction technique. FINDINGS: Paranasal sinuses and mastoid air cells are clear. Intraorbital contents are unremarkable. No acute bony abnormality. Intracranially, there is no evidence of hemorrhage, mass effect, or midline shift. Brain is markedly atrophic. 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 Carotid calcifications are noted.. IMPRESSION: No acute intracranial abnormality. Brain atrophy and chronic ischemic changes as documented. Electronically authenticated by: EMILEE SAHNI Date: 2022-08-02 10:35 Normal [facility] CTA NECK WO W CONon 08-02-19 CTA NECK WO W CON EXAMINATION: CTA HEA D WO W CON, CTA NECK WO W CON HISTORY: Asthenia COMPARISON: Noncontrast CT head TECHNIQUE: Axial CT images were obtained of the head and neck in the arterial phase. Multiplanar reconstructions were performed. MIP reformatted images were performed. Carotid stenosis is reported according to NASCET criteria. CTA HEAD FINDINGS: Internal carotid arteries: No acute thrombosis or dissection. Vertebrobasilar arteries: No acute thrombosis or dissection. Intracranial arteries: No acute thrombosis, dissection, aneurysm or vascular malformation Venous sinuses: Unremarkable. Brain: Unremarkable. Paranasal sinuses: Partial opacification of the left sphenoid sinus is noted. CTA NECK FINDINGS: Aorta and proximal great vessels: No acute thrombosis or dissection. Mild to moderate atherosclerotic calcifications noted at the aortic arch in the origin of the left subclavian artery Common carotid arteries: No acute thrombosis or dissection. Internal carotid arteries: No acute thrombosis or dissection. Very mild atherosclerotic calcifications are present at the carotid bulbs and siphons without significant stenosis. Vertebral arteries: No acute thrombosis or dissection. Mild atherosclerotic calcification is present at the origin of the left vertebral artery without significant stenosis. Venous structures: Unremarkable. Bones: Moderate multilevel degenerative changes are present in the cervical spine Soft tissues: Multinodular goiter noted in the thyroid gland. IMPRESSION: 1. No acute vascular abnormality of the head and neck. 2. Partial opacification of the left sphenoid sinus, likely due to sinusitis. 3. Multinodular goiter noted. Electronically authenticated by: NHAN BRISA Date: 2022-08-02 11:24 Normal [facility] Covid-19 PCR (CVDTB)on 07-12 SARS-CoV-2 (COVID-19) RNA GARFIELD+probe Ql (Unsp spec) Not detected Normal NOT DETECTED [facility] Comment on above: Result Comment: When diagnostic testing is negative, the possibility of a false negative should be considered in the context of a patient's recent exposures and the presence of clinical signs and symptoms consistent with SARS-CoV-2. This test is not yet approved or cleared by the [place] FDA. When there are no FDA-approved or cleared tests available, and other criteria are met, FDA can make tests available under an emergency access mechanism called an Emergency Use Authorization (EUA). The EUA for this test is supported by the [employer] Draftsperson of Health and Human Service's declaration that circumstances exist to justify the emergency use of in vitro diagnostics for the detection and/or diagnosis of the virus that causes COVID-19. This EUA will remain in effect for the duration of the COVID-19 declaration justifying emergency of IVDs, unless it is terminated or revoked by the FDA (after which the test may no longer be used). Performed By: #### C RP, CMP #### [facility] [address] [place], [place] [address] Dr. César Christianson POINT OF CARE GLUCOSEon 07-12 Glucose [Mass/Vol] 143 mg/dL Critically high 74-106 [facility] Comment on above: Performed By: #### E LUIS IBARRA #### [facility] [address] [place], [place] [address] Dr. César Christianson Glucose [Mass/Vol] 193 mg/dL Critically high 74-106 [facility] Comment on above: Performed By: #### E LUIS IBARRA #### [facility] [address] [address] [address] César Christianson PROF 14(COMP METB)on 023 Albumin [Mass/Vol] 3.5 g/dL Normal 3.4-5.0 [facility] Comment on above: Performed By: #### C MADM, BNP, CMP #### [facility] [address] [address] [address] César Christianson Albumin/Globulin [Mass ratio] 1.0 {ratio} Normal [facility] Comment on above: Performed By: #### C MADM, BNP, CMP #### [facility] [address] [place] [address] Dr. César Christianson ALP [Catalytic activity/Vol] 90 U/L Normal 46-116 [facility] Comment on above: Performed By: #### C MADM, BNP, CMP #### [facility] [address] [place] [address] Dr. César Christianson ALT [Catalytic activity/Vol] 25 U/L Normal 14-59 [facility] Comment on above: Performed By: #### C MADM, BNP, CMP #### [facility] [address] [place] [address] Dr. César Christianson Anion gap [Moles/Vol] 13.8 mmol/L Normal [facility] Comment on above: Performed By: #### C MADM, BNP, CMP #### [facility] [address] [place] [address] Dr. César Christianson AST [Catalytic activity/Vol] 21 U/L Normal 15-37 [facility] Comment on above: Performed By: #### C MADM, BNP, CMP #### [facility] [address] [place] [address] Dr. César Christianson Bilirubin [Mass/Vol] 0.5 mg/dL Normal 0.2-1.0 [facility] Comment on above: Performed By: #### C MADM, BNP, CMP #### [facility] [address] [address] [address] César Christianson Calcium [Mass/Vol] 9.2 mg/dL Normal 8.5-10.1 [facility] Comment on above: Performed By: #### C MADM, BNP, CMP #### [facility] [address] [address] [address] César Christianson Chloride [Moles/Vol] 102 mmol/L Normal 98-107 [facility] Comment on above: Performed By: #### C MADM, BNP, CMP #### [facility] [address] [address] [address] César Christianson CO2 [Moles/Vol] 28.4 mmol/L Normal 21.0-32.0 [facility] Comment on above: Performed By: #### C MADM, BNP, CMP #### [facility] [address] [place] [address] Dr. César Christianson Creatinine [Mass/Vol] 1.07 mg/dL Critically high 0.55-1.02 [facility] Comment on above: Performed By: #### C MADM, BNP, CMP #### [facility] [address] [address] [address] César Christianson EGFR-AF [facility] 59 mL/min/1.73m2 Critically low >=60 [facility] Comment on above: Performed By: #### C MADM, BNP, CMP #### [facility] [address] [address] [address] César Christianson EGFR-NON AF [facility] 48 mL/min/1.73m2 Critically low >=60 [facility] Comment on above: Performed By: #### C MADM, BNP, CMP #### [facility] [address] [address] [address] César Christianson Globulin (S) [Mass/Vol] 3.6 g/dL Normal [facility] Comment on above: Performed By: #### C MADM, BNP, CMP #### [facility] [address] [address] [address] César Christianson Glucose [Mass/Vol] 233 mg/dL Critically high 74-106 [facility] Comment on above: Performed By: #### C MADM, BNP, CMP #### [facility] [address] [address] [address] César Christianson Potassium [Moles/Vol] 4.2 mmol/L Normal 3.5-5.1 [facility] Comment on above: Performed By: #### C MADM, BNP, CMP #### [facility] [address] [place] [address] Dr. César Christianson Protein [Mass/Vol] 7.1 g/dL Normal 6.4-8.2 [facility] Comment on above: Performed By: #### C MADM, BNP, CMP #### [facility] [address] [place] [address] Dr. César Christianson Sodium [Moles/Vol] 140 mmol/L Normal 136-145 [facility] Comment on above: Performed By: #### C MADM, BNP, CMP #### [facility] [address] [place] [address] Dr. César Christianson Urea nitrogen [Mass/Vol] 29.0 mg/dL Critically high 7.0-18.0 [facility] Comment on above: Performed By: #### C MADM, BNP, CMP #### [facility] [address] [place] [address] Dr. César Christianson Urea nitrogen/Creatinine [Mass ratio] 27.1 mg/mg Normal [facility] Comment on above: Performed By: #### C MADM, BNP, CMP #### [facility] [address] [place] [address] Dr. César Christianson PROTIMEon 08-02-2022 INR Coag (PPP) [Relative time] {INR} Normal [facility] Comment on above: Performed By: #### P TT, PT #### [facility] [address] [place] [address] Dr. César Christianson INR GUIDELINES SEE BELOW Normal [facility] Comment on above: Result Comment: JAMIE RED INR: 2.0 - 3.0 CONDITIONS NOT LISTED BELOW 2.5 - 3.5 FOR PROSTHETIC HEART VALVE REPLACEMENT 2.5 - 3.5 RECURRENT THROMBOSIS Performed By: #### P TT, PT #### [facility] [address] [address] [address] César Christianson PT Coag (PPP) [Time] 9.8 s Normal 9.0-11.6 [facility] Comment on above: Performed By: #### P TT, PT #### [facility] [address] [place] [address] Dr. César Christianson PTTon 08-02-2022 aPTT Coag (Bld) [Time] 24.5 s Normal 22.3-36.2 [facility] Comment on above: Performed By: #### P TT, PT #### [facility] [address] [place] [address] Dr. César Christianson XR CHEST 1 Von 08-02-2022 XR CHEST 1 V EXAMINATION: XR CHES T 1 V HISTORY: Asthenia COMPARISON: 01/19/2020 TECHNIQUE: AP portable erect FINDINGS: LUNGS: No significant pulmonary parenchymal abnormalities. Low lung inflation VASCULATURE: No increased pulmonary vasculature. PLEURA: No pneumothorax, effusion, or pleural thickening. CARDIAC: No cardiomegaly or cardiac silhouette abnormality. MEDIASTINUM: No visible mass or adenopathy. BONES: No fracture or visible bone lesion. OTHER: Negative. IMPRESSION: Low volume exam, clear lungs Electronically authenticated by: RUDY TEAGUE Date: 2022-08-02 10:50 Normal [facility] PROF CHEM 8 (BAS METB)on Anion gap [Moles/Vol] 10.8 mmol/L Normal [facility] Comment on above: Performed By: #### C RP, CMP #### [facility] [address] [place] [address] Dr. César Christianson Calcium [Mass/Vol] 9.0 mg/dL Normal 8.5-10.1 [facility] Comment on above: Performed By: #### C RP, CMP #### [facility] [address] [place] [address] Dr. César Christianson Chloride [Moles/Vol] 104 mmol/L Normal 98-107 [facility] Comment on above: Performed By: #### C RP, CMP #### [facility] [address] [address] [address] César Christianson CO2 [Moles/Vol] 30.9 mmol/L Normal 21.0-32.0 [facility] Comment on above: Performed By: #### C RP, CMP #### [facility] [address] [address] [address] César Christianson Creatinine [Mass/Vol] 1.12 mg/dL Critically high 0.55-1.02 [facility] Comment on above: Performed By: #### C RP, CMP #### [facility] [address] [address] [address] César Christianson EGFR-AF [facility] 56 mL/min/1.73m2 Critically low >=60 [facility] Comment on above: Performed By: #### C RP, CMP #### [facility] [address] [address] [address] César Christianson EGFR-NON AF [facility] 46 mL/min/1.73m2 Critically low >=60 [facility] Comment on above: Performed By: #### C RP, CMP #### [facility] [address] [address] [address] César Christianson Glucose [Mass/Vol] 239 mg/dL Critically high 74-106 [facility] Comment on above: Performed By: #### C RP, CMP #### [facility] [address] [address] [address] César Christianson Potassium [Moles/Vol] 4.7 mmol/L Normal 3.5-5.1 [facility] Comment on above: Performed By: #### C RP, CMP #### [facility] [address] [address] [address] César Christianson Sodium [Moles/Vol] 141 mmol/L Normal 136-145 [facility] Comment on above: Performed By: #### C RP, CMP #### [facility] [address] [address] [address] César Christianson Urea nitrogen [Mass/Vol] 26.0 mg/dL Critically high 7.0-18.0 [facility] Comment on above: Performed By: #### C RP, CMP #### [facility] [address] [address] [address] César Christianson Urea nitrogen/Creatinine [Mass ratio] 23.2 mg/mg Normal [facility] Comment on above: Performed By: #### C RP, CMP #### [facility] [address] [place] [address] Dr. César Christianson POINT OF CARE GLUCOSEon 05-11 Glucose [Mass/Vol] 203 mg/dL Critically high 74-106 [facility] Comment on above: Performed By: #### P OCGLUC #### [facility] [address] [place] [address] Dr. 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 Moderate diffuse degenerative spondylosis and facet osteoarthropathy DISC SPACES: Altered level disc space narrowing with endplate sclerosis. Vacuum disc L4-L5 PARASPINOUS: Negative. No paraspinous abnormality is seen. 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 César Christianson Basophils/100 WBC (Bld) 0.8 % Normal 0.2-2.0 [facility] Comment on above: Performed By: #### LUIS PAIGE #### [facility] [address] [place] [address] Dr. César Christianson EO # 0.6 103/ul Normal 0.0-0.7 [facility] Comment on above: Performed By: #### LUIS PAIGE #### [facility] [address] [place] [address] Dr. César Christianson Eosinophils/100 WBC (Bld) 7.6 % Critically high 0.9-7.0 [facility] Comment on above: Performed By: #### KOLE PAIGERO #### [facility] [address] [place] [address] Dr. César Christianson Erythrocyte distribution width (RBC) [Ratio] 13.2 % Normal 11.0-15.0 [facility] Comment on above: Performed By: #### KOLE PAIGERO #### [facility] [address] [place] [address] Dr. César Christianson Hematocrit (Bld) [Volume fraction] 41.8 % Normal 36.0-48.0 [facility] Comment on above: Performed By: #### KOLE PAIGERO #### [facility] [address] [place] [address] Dr. César Christianson Hemoglobin (Bld) [Mass/Vol] 13.8 g/dL Normal 12.0-16.0 [facility] Comment on above: Performed By: #### KOLE PAIGERO #### [facility] [address] [place] [address] Dr. César Christianson IG # 0.04 10e3/ul Critically high 0.00-0.03 [facility] Comment on above: Performed By: #### KOLE PAIGERO #### [facility] [address] [place] [address] Dr. César Christianson IG % 0.5 % Normal 0.0-0.5 [facility] Comment on above: Performed By: #### KOLE PAIGERO #### [facility] [address] [place] [address] Dr. César Christianson LYMPH # 2.3 103/ul Normal 1.2-3.8 [facility] Comment on above: Performed By: #### KOLE PAIGERO #### [facility] [address] [place] [address] Dr. César Christianson Lymphocytes/100 WBC (Bld) 27.3 % Normal 20.5-60.0 [facility] Comment on above: Performed By: #### KOLE PAIGERO #### [facility] [address] [place] [address] Dr. César Christianson MANUAL DIFF REQ NO Normal [facility] Comment on above: Performed By: #### KOLE PAIGERO #### [facility] [address] [place] [address] Dr. César Christianson MCH (RBC) [Entitic mass] 31.9 pg Normal 26.7-34.0 [facility] Comment on above: Performed By: #### KOLE PAIGERO #### [facility] [address] [place] [address] Dr. César Christianson MCHC (RBC) [Mass/Vol] 33.0 g/dL Normal 29.9-35.2 [facility] Comment on above: Performed By: #### KOLE PAIGERO #### [facility] [address] [place] [address] Dr. César Christianson MCV (RBC) [Entitic vol] 96.5 fL Normal 81.0-99.0 [facility] Comment on above: Performed By: #### KEEGAN PAIGEICRO #### [facility] [address] [place] [address] Dr. César Christianson MONO # 0.5 103/ul Normal 0.3-0.8 [facility] Comment on above: Performed By: #### KEEGAN PAIGEICRO #### [facility] [address] [place] [address] Dr. César Christianson Monocytes/100 WBC (Bld) 5.8 % Normal 1.7-12.0 [facility] Comment on above: Performed By: #### KOLE PAIGERO #### [facility] [address] [place] [address] Dr. César Christianson NEUT # 4.8 103/ul Normal 1.4-6.5 [facility] Comment on above: Performed By: #### E RUR, UMICRO #### [facility] [address] [address] [address] César Christianson Neutrophils/100 WBC (Bld) 58.0 % Normal 43.0-75.0 [facility] Comment on above: Performed By: #### Deejay IBARRA UMICRO #### [facility] [address] [place] [address] Dr. César Christianson Platelet mean volume (Bld) [Entitic vol] 10.5 fL Normal 9.5-13.5 [facility] Comment on above: Performed By: #### Deejay IBARRA UMICRO #### [facility] [address] [place] [address] Dr. César Christianson PLT 173 103/ul Normal 150-450 [facility] Comment on above: Performed By: #### Deejay IBARRA UMICRO #### [facility] [address] [place] [address] Dr. César Christianson RBC 4.33 106/ul Normal 4.20-5.40 [facility] Comment on above: Performed By: #### Deejay IBARRA UMICRO #### [facility] [address] [place] [address] Dr. César Christianson WBC 8.3 103/ul Normal 4.0-11.0 [facility] Comment on above: Performed By: #### Deejay IBARRA UMICRO #### [facility] [address] [place] [address] Dr. César Christianson GLYCOHEMOGLOBIN A1Con 2021 ADA RECOMMENDATION SEE BELOW Normal [facility] Comment on above: Result Comment: ADA RECOMMENDED LIMIT 4.0 - 6.0 ADA THERAPEUTIC TARGET < 7.0 ACTION SUGGESTED > 7.0 Performed By: #### Deejay IBARRA UMICRO #### [facility] [address] [place] [address] Dr. César Christianson Glucose [Mass/Vol] 163 mg/dL Normal [facility] Comment on above: Performed By: #### Deejay IBARRA UMNICKIRO #### [facility] [address] [place] [address] Dr. César Christianson HbA1c (Bld) [Mass fraction] 7.3 % Critically high 4.5-6.2 [facility] Comment on above: Performed By: #### E LUIS IBARRA #### [facility] [address] [address] [address] César Christianson MICROALBUMIN, RAND URon 10-2 mALB <1.3 Normal <=30.0 [facility] Comment on above: Performed By: #### LUIS PAIGE #### [facility] [address] [address] [address] César Christianson PROF CHEM 8 (BAS METB)on Anion gap [Moles/Vol] 11.2 mmol/L Normal [facility] Comment on above: Performed By: #### C RP, CMP #### [facility] [address] [place] [address] Dr. César Christianson Calcium [Mass/Vol] 8.9 mg/dL Normal 8.5-10.1 [facility] Comment on above: Performed By: #### C RP, CMP #### [facility] [address] [address] [address] César Christianson Chloride [Moles/Vol] 102 mmol/L Normal 98-107 [facility] Comment on above: Performed By: #### C RP, CMP #### [facility] [address] [place] [address] Dr. César Christianson CO2 [Moles/Vol] 30.1 mmol/L Normal 21.0-32.0 [facility] Comment on above: Performed By: #### C RP, CMP #### [facility] [address] [address] [address] César Christianson Creatinine [Mass/Vol] 1.10 mg/dL Critically high 0.55-1.02 [facility] Comment on above: Performed By: #### C RP, CMP #### [facility] [address] [address] [address] César Christianson EGFR-AF [facility] LUCIAN 57 mL/min/1.73m2 Critically low >=60 [facility] Comment on above: Performed By: #### C RP, CMP #### [facility] [address] [address] [address] César Christianson EGFR-NON AF [facility] LUCIAN 47 mL/min/1.73m2 Critically low >=60 [facility] Comment on above: Performed By: #### C RP, CMP #### [facility] [address] [address] [address] César Christianson Glucose [Mass/Vol] 219 mg/dL Critically high 74-106 [facility] Comment on above: Performed By: #### C RP, CMP #### [facility] [address] [address] [address] César Christianson Potassium [Moles/Vol] 4.3 mmol/L Normal 3.5-5.1 [facility] Comment on above: Performed By: #### C RP, CMP #### [facility] [address] [address] [address] César Christianson Sodium [Moles/Vol] 139 mmol/L Normal 136-145 [facility] Comment on above: Performed By: #### C RP, CMP #### [facility] [address] [address] [address] César Christianson Urea nitrogen [Mass/Vol] 23.0 mg/dL Critically high 7.0-18.0 [facility] Comment on above: Performed By: #### C RP, CMP #### [facility] [address] [address] [address] César Christianson Urea nitrogen/Creatinine [Mass ratio] 20.9 mg/mg Normal [facility] Comment on above: Performed By: #### C RP, CMP #### [facility] [address] [address] [address] César Christianson TSHon 04-29-2022 TSH 1.700 uIU/mL Normal 0.358-3.740 [facility] Comment on above: Performed By: #### C RP, CMP #### [facility] [address] [address] [address] César Christianson XR CSPINE 2_3 VIEWSon 2021 XR CSPINE 2_3 VIEWS EXAMINATION: XR CSPI NE 2_3 VIEWS HISTORY: Cervical spondylosis without myelopathy COMPARISON: No relevant comparison available. FINDINGS: BONES: Moderate to severe diffuse degenerative spondylosis and facet arthropathy. 2 mm anterolisthesis C5 on C6 DISC SPACES: Mild to moderate widespread disc height narrowing. PARASPINOUS: Negative. No paraspinous abnormality is seen. OTHER: C6 and C7 are poorly visualized on the lateral projection IMPRESSION: Moderate to severe diffuse degenerative change Electronically authenticated by: RUDY TEAGUE Date: 2022-04-29 20:32 Normal [facility] Coding Summaryon 02-05-2020 Coding Summary CODING DATE: 020 [facility] STATUS: Home PAYOR: Medicare MC APC DESCRIPTION 5521 Level 1 Imaging without Contrast 5693 Level 3 Drug Administration 5025 Level 5 Type A ED Visits 5691 Level 1 Drug Administration ADMIT DX: REASON FOR VISIT DX: R05 Cough R53.1 Weakness FINAL DX: PRINCIPAL: U07.1 2019-nCoV acute respiratory disease SECONDARY: E86.0 Dehydration R94.31 Abnormal electrocardiogram [ECG] [EKG] I10 Essential (primary) hypertension E11.9 Type 2 diabetes mellitus without complications 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 However, the narrative phrase printed from the coding software may appear abbreviated, or result in slightly different terminology. Revised Coded By: Jeny Sullivan Revised Date Saved: 02/04/2020 05:55 am [facility] .QC Respiratory Panel 2.1 (B ioFire)on 01-31-2020 Internal Control-Resp Panel 2.1(BioFire) Pass [facility] Comment on above: Order Comment: Order ed by Kalpesh.[[email or web address]] Performed By: #### 1 [id number], [id number], 6604845, 8337605623, 3877094426, 2214840, 233863267 #### [facility] (DEFAULT) [address] [place] [address] CBC w/ Auto Diffon 07-23-202 0 Man Diff? Manual Normal [facility] Comment on above: Performed By: #### 1 [id number], 8270472311, 4357630, 7163714874, 6957027149, 6406847, 812662346 #### [facility] (DEFAULT) [address] [place] [address] Erythrocyte distribution width (RBC) [Ratio] 13.5 % Normal 11.5-15.0 [facility] Comment on above: Performed By: #### 1 [id number], 0382006825, 0100022, 2165868379, 4767454723, 0993065, 277084270 #### [facility] (DEFAULT) [address] [place] [address] Hematocrit (Bld) [Volume fraction] 42.4 % High 33.7-40.4 [facility] Comment on above: Performed By: #### 1 [id number], 3897360433, 0898613, 3590414725, 9681512160, 6342151, 506169031 #### [facility] (DEFAULT) [address] [place] [address] Hemoglobin (Bld) [Mass/Vol] 14.3 g/dL Normal 11.3-15.9 [facility] Comment on above: Performed By: #### 1 [id number], 3137004459, 0424415, 9711426064, 5562264118, 4484268, 753898699 #### [facility] (DEFAULT) [address] [place] [address] MCH (RBC) [Entitic mass] 32 pg Normal 24-34 [facility] Comment on above: Performed By: #### 1 070478923, 0815949213, 5046117, 4802569278, 2129581878, 1749969, 493431123 #### [facility] (DEFAULT) [address] [place] [address] MCHC (RBC) [Mass/Vol] 34 g/dL Normal 26-37 [facility] Comment on above: Performed By: #### 1 [id number], 9917137748, 1584074, 3999843468, 8964385760, 8836921, 526577135 #### [facility] (DEFAULT) [address] [place] [address] MCV (RBC) [Entitic vol] 94 fL Normal 81-100 [facility] Comment on above: Performed By: #### 1 348687849, 1129799105, 0753173, 7447208343, 4920029037, 8677252, 530583259 #### [facility] (DEFAULT) [address] [place] [address] 31440 Platelet mean volume (Bld) [Entitic vol] 11.2 fL High 6.3-10.2 [facility] Comment on above: Performed By: #### 1 [id number], 8939247051, 6423880, 2648712801, 0117542372, 5574150, 353290184 #### [facility] (DEFAULT) [address] [place] [address] 95[address] Platelets (Bld) [#/Vol] 151 x10 Normal 138-427 [facility] Comment on above: Performed By: #### 1 406063935, 4058167801, 7918038, 4234316904, 3834893696, 4084410, 514425773 #### [facility] (DEFAULT) [address] [place] [address] 63227 RBC (Bld) [#/Vol] 4.51 x10 Normal 3.70-5.30 [facility] Comment on above: Performed By: #### 1 380655820, 9478554575, 1568943, 4217482008, 7343874735, 6045450, 264453921 #### [facility] (DEFAULT) [address] [place] [address] WBC (Bld) [#/Vol] 7.0 x10 [facility] Comment on above: Performed By: #### 1 461574026, 6572089648, 7780521, 0368615748, 2284436048, 7389243, 433569302 #### [facility] (DEFAULT) [address] [place] [address] [facility] Standardon 01-31-2020 eGFR Non AA 47 mL/min/1.73m2 [facility] Comment on above: Performed By: #### 1 706969738, 7001939180, 3012646, 3862616472, 3659500004, 6900453, 213246182 #### [facility] (DEFAULT) [address] [place] [address] eGFR AA 56 mL/min/1.73m2 [facility] Comment on above: Result Comment: Procedure Rn joshua Kidney disease could be indicated at eGFRs of less than 60 ml/min/1.73m2. Kidney Failure is indicated at less than 15 ml/min/1.73m2 Performed By: #### 1 240201551, 6881520714, 7689776, 1122968040, 9387120644, 1631393, 315306657 #### [facility] (DEFAULT) [address] [place], [place] [address] Albumin [Mass/Vol] 3.5 g/dL Normal 3.5-5.0 [facility] Comment on above: Performed By: #### 1 803959715, 2330611375, 7200396, 0860684264, 4303907079, 6516017, 252411847 #### [facility] (DEFAULT) [address] [place] [address] 25864 Albumin/Globulin [Mass ratio] 1.1 {ratio} Low 1.4-2.6 [facility] Comment on above: Performed By: #### 1 457182987, 8310134120, 2451495, 2730269947, 3903193756, 4145559, 291361353 #### [facility] (DEFAULT) [address] [place] [address] 80951 Alk Phos 92 IU/L High 32-91 [facility] Comment on above: Performed By: #### 1 359732701, 3959807222, 4337792, 5189201020, 8639278748, 9286535, 238887467 #### [facility] (DEFAULT) [address] [place] [address] 50603 ALT/SGPT 26.0 IU/L Normal 14.0-54.0 [facility] Comment on above: Performed By: #### 1 368996422, 8735392302, 5162565, 6785031036, 4515948462, 7390496, 324578677 #### [facility] (DEFAULT) [address] [place] [address] Anion gap [Moles/Vol] 14.0 mmol/L Normal 5.0-19.0 [facility] Comment on above: Performed By: #### 1 786692460, 2837432847, 9419311, 3672812474, 5576667059, 5856551, 465040981 #### [facility] (DEFAULT) [address] [place] [address] AST/SGOT 26 IU/L Normal 15-41 [facility] Comment on above: Performed By: #### 1 380344225, 5001036069, 9229403, 5153919208, 7209993635, 6942140, 603239725 #### [facility] (DEFAULT) [address] [place] [address]6558 Bili Total 0.8 mg/dL Normal 0.3-1.2 [facility] Comment on above: Performed By: #### 1 948325918, 6681193066, 5647265, 7998767453, 4509663129, 3812872, 830830670 #### [facility] (DEFAULT) [address] [place] [address] 33275 Calcium [Mass/Vol] 8.4 mg/dL Low 8.9-10.3 [facility] Comment on above: Performed By: #### 1 707008963, 2370909816, 9847026, 1642608929, 7870538006, 9438462, 694400248 #### [facility] (DEFAULT) [address] [place] [address] 78971 Chloride [Moles/Vol] 101 mmol/L Normal 101-111 [facility] Comment on above: Performed By: #### 1 992580514, 8912388343, 9279797, 6338271467, 1543427947, 6260350, 075154529 #### [facility] (DEFAULT) [address] [place] [address] CO2 [Moles/Vol] 28 mmol/L Normal 21-32 [facility] Comment on above: Performed By: #### 1 934201512, 8540517134, 1256077, 4081226291, 2943310505, 6963145, 238559273 #### [facility] (DEFAULT) [address] [place] [address] Creatinine [Mass/Vol] 1.11 mg/dL Normal 0.60-1.30 [facility] Comment on above: Performed By: #### 1 199293563, 5155518941, 4378957, 2612060182, 1598200724, 3144538, 822190474 #### [facility] (DEFAULT) [address] [place] [address] Globulin (S) [Mass/Vol] 3.3 g/dL Normal 1.5-4.3 [facility] Comment on above: Performed By: #### 1 163329991, 3898219037, 7555488, 9030175598, 7732277158, 1517968, 545669980 #### [facility] (DEFAULT) [address] [place] [address] Glucose [Mass/Vol] 141.0 mg/dL High 74.0-118.0 [facility] Comment on above: Performed By: #### 1 881437024, 4394312436, 4764088, 2841390365, 3633657704, 0681393, 651198792 #### [facility] (DEFAULT) [address] [place] [address] Osmolality [Osmolality] 288 mOsm/L [facility] Comment on above: Performed By: #### 1 361340768, 4454217780, 9903775, 7708792250, 9714331176, 2353911, 566491589 #### [facility] (DEFAULT) [address] [place] [address] 77216 Potassium [Moles/Vol] 3.1 mmol/L Low 3.6-5.1 [facility] Comment on above: Performed By: #### 1 200446290, 0300210373, 4464219, 8087693612, 4545492476, 6169084, 402136074 #### [facility] (DEFAULT) [address] [place] [address] 06921 Protein [Mass/Vol] 6.8 g/dL Normal 6.5-8.1 [facility] Comment on above: Performed By: #### 1 922546732, 6871456248, 2868711, 6415871675, 5079605427, 4335357, 034878048 #### [facility] (DEFAULT) [address] [place] [address] 13030 Sodium [Moles/Vol] 140.0 mmol/L Normal 136.0-144.0 [facility] Comment on above: Performed By: #### 1 867655112, 1604347778, 2389092, 5239389005, 0784252241, 4277574, 272600057 #### [facility] (DEFAULT) [address] [place] [address] 08001 Urea nitrogen [Mass/Vol] 30 mg/dL High 8-26 [facility] Comment on above: Performed By: #### 1 693698310, 4820239289, 3977224, 6795456452, 3915144987, 1092903, 317475181 #### [facility] (DEFAULT) [address] [place] [address] 55184 Urea nitrogen/Creatinine [Mass ratio] 27.0 mg/mg High 4.6-16.2 [facility] Comment on above: Performed By: #### 1 547563644, 5154914525, 1835728, 4393040455, 6363401310, 4572430, 060360647 #### [facility] (DEFAULT) [address] [place] [address] 96987 eGFR Non AA 37 mL/min/1.73m2 [facility] Comment on above: Performed By: #### 1 746772628, 0557137844, 7469263, 5798110475, 5497694486, 7647926, 649044567 #### [facility] (DEFAULT) [address] [place] [address] 29892 eGFR AA 45 mL/min/1.73m2 [facility] Comment on above: Result Comment: Procedure Rn joshua Kidney disease could be indicated at eGFRs of less than 60 ml/min/1.73m2. Kidney Failure is indicated at less than 15 ml/min/1.73m2 Performed By: #### 1 154500614, 3548214293, 8974449, 0813056351, 4167128417, 4349715, 505414678 #### [facility] (DEFAULT) [address] [place] [address] 44691 Albumin [Mass/Vol] 4.0 g/dL Normal 3.5-5.0 [facility] Comment on above: Performed By: #### 1 365063159, 3287415071, 3613589, 5276438657, 1167548344, 9107176, 617877723 #### [facility] (DEFAULT) [address] [place] [address] 10037 Albumin/Globulin [Mass ratio] 1.1 {ratio} Low 1.4-2.6 [facility] Comment on above: Performed By: #### 1 648904848, 4407720046, 0063547, 0332517044, 1766881268, 3652995, 736671222 #### [facility] (DEFAULT) [address] [place] [address] 29828 Alk Phos 105 IU/L High 32-91 [facility] Comment on above: Performed By: #### 1 228266737, 9707216639, 1999626, 6311339541, 7373999813, 8721437, 897416576 #### [facility] (DEFAULT) [address] [place] [address] 75359 ALT/SGPT 32.0 IU/L Normal 14.0-54.0 [facility] Comment on above: Performed By: #### 1 621129004, 0669599209, 2422368, 9103796093, 8708278038, 9985405, 021243661 #### [facility] (DEFAULT) [address] [place] [address] 44315 Anion gap [Moles/Vol] 18.0 mmol/L Normal 5.0-19.0 [facility] Comment on above: Performed By: #### 1 386300235, 6841518762, 2407583, 9596313050, 5338646637, 2892655, 515667047 #### [facility] (DEFAULT) [address] [place] [address] AST/SGOT 31 IU/L Normal 15-41 [facility] Comment on above: Performed By: #### 1 965653981, 0043025143, 3400728, 1037720263, 1040084925, 5529850, 918401104 #### [facility] (DEFAULT) [address] [place] [address] 30004 Bili Total 0.9 mg/dL Normal 0.3-1.2 [facility] Comment on above: Performed By: #### 1 452869121, 3294354458, 0468851, 2831687334, 1429313839, 6606876, 224744904 #### [facility] (DEFAULT) [address] [place] [address] 09437 Calcium [Mass/Vol] 8.9 mg/dL Normal 8.9-10.3 [facility] Comment on above: Performed By: #### 1 780620186, 0430274975, 4379347, 5186249527, 6431846830, 5440053, 517545890 #### [facility] (DEFAULT) [address] [place] [address] 92365 Chloride [Moles/Vol] 96 mmol/L Low 101-111 [facility] Comment on above: Performed By: #### 1 063373628, 0678796851, 5449254, 7791314246, 7174069025, 6478990, 691891923 #### [facility] (DEFAULT) [address] [place] [address] 10937 CO2 [Moles/Vol] 23 mmol/L Normal 21-32 [facility] Comment on above: Performed By: #### 1 225991421, 9841955983, 3828783, 3031532315, 9261314535, 7809804, 921047865 #### [facility] (DEFAULT) [address] [place] [address] 99417 Creatinine [Mass/Vol] 1.36 mg/dL High 0.60-1.30 [facility] Comment on above: Performed By: #### 1 129085367, 9225592811, 7240368, 8328660092, 7899454905, 6966292, 458411237 #### [facility] (DEFAULT) [address] [place] [address] 85535 Globulin (S) [Mass/Vol] 3.5 g/dL Normal 1.5-4.3 [facility] Comment on above: Performed By: #### 1 185480170, 4876884180, 6557431, 8307509009, 4777534739, 1180081, 469586379 #### [facility] (DEFAULT) [address] [place] [address] 30985 Glucose [Mass/Vol] 353.0 mg/dL High 74.0-118.0 [facility] Comment on above: Performed By: #### 1 300444047, 4455380575, 8278924, 3913466364, 2713824981, 3353794, 506392337 #### [facility] (DEFAULT) [address] [place] [address] 91746 Osmolality [Osmolality] 287 mOsm/L [facility] Comment on above: Performed By: #### 1 823371398, 8056292803, 3668950, 6919223193, 4275874263, 3257262, 756811113 #### [facility] (DEFAULT) [address] [place] [address] 32699 Potassium [Moles/Vol] 3.6 mmol/L Normal 3.6-5.1 [facility] Comment on above: Performed By: #### 1 534472173, 7824706733, 4456941, 2942286939, 1728927368, 9401760, 656899435 #### [facility] (DEFAULT) [address] [place] [address] 77418 Protein [Mass/Vol] 7.5 g/dL Normal 6.5-8.1 [facility] Comment on above: Performed By: #### 1 125843827, 4033768230, 2745451, 9568071287, 7603273994, 6377965, 737901577 #### [facility] (DEFAULT) [address] [place] [address] 27477 Sodium [Moles/Vol] 133.0 mmol/L Low 136.0-144.0 [facility] Comment on above: Performed By: #### 1 514445983, 0715365737, 6322506, 8588233827, 8340913282, 2402068, 091870200 #### [facility] (DEFAULT) [address] [place] [address] 58007 Urea nitrogen [Mass/Vol] 30 mg/dL High 8-26 [facility] Comment on above: Performed By: #### 1 880943375, 1685929953, 2438107, 2623697796, 6498574624, 8335170, 499961848 #### [facility] (DEFAULT) [address] [place] [address] 61178 Urea nitrogen/Creatinine [Mass ratio] 22.0 mg/mg High 4.6-16.2 [facility] Comment on above: Performed By: #### 1 262929697, 0709397112, 8193595, 0108732281, 0844580436, 6009172, 870127713 #### [facility] (DEFAULT) [address] [place] [id number] Discharge Noteon 01-31-2020 Discharge Note 1320 discharge instructions in hand verbalizes understanding, belongings packed, skin warm and dry, denies pain, mask on, patient in wheelchair to private vehicle. [Electronically Signed on: 01/31/2020 13:30 EDT] Trena Serrano RN [Verified on: 01/31/2020 13:30 EDT] Trena Serrano RN [facility] ED Clinical Summaryon 2019 ED Clinical Summary [facility] - Emergency Department [address] [place], [place] [id number] ED Clinical Summary PERSON INFORMATION Name: LUIS FELIPE DAVIS Age: 85 Years Sex: FEMALE : 1935 MRN: Acct#: Visit Reason: Cough; Weakness; COVID POSITIVE, HYPERGLYCEMIA Arrival: 01/30/2020 21:16:46 Discharge: LOS: 000 03:35 Check In: 01/30/2020 21:16:46 Checkout:01/31/2020 00:51:50 Address: [address] [place] [address] PCP: Provider, None PROVIDER INFORMATION Provider Role Assigned Unassigned TOSHIA APPIAH ED PA 01/30/2020 21:20:32 Soheila Cummins BRUSH HAND Nurse 01/30/2020 22:03:31 Angelo Means DO ED Provider 01/30/2020 23:33:49 VITALS INFORMATION Vital Sign Triage Latest Temperature Tympanic Temperature Temporal Artery Pulse Rate 88 bpm 79 bpm O2 Sat 95 % 96 % Respiratory Rate 18 br/min 18 br/min Blood Pressure /74 mmHg /74 mmHg MEDICAL INFORMATION Medications Given: Medication Dose Route Sodium Chloride 0.9% intravenous solution 500 mL Initial Volume 20 mL/hr IV Right Antecubital Fossa sodium chloride 30 mL IV Push acetaminophen 1000 mg PO azithromycin 500 mg IV Piggyback insulin aspart 8 unit(s) SubQ Allergy Information: tetanus/diphth/pertuss (Tdap) adult/adol; sulfa drug; penicillin PHYSICIAN DOCUMENTATION Patient: LUIS FELIPE DAVIS Age: 85 years Sex: FEMALE : 1935 Associated Diagnoses: Cough; Weakness; Hyperglycemia Author: TOSHIA APPIAH Basic Information Time seen: Date & time 01/30/2020 21:21:00. History source: Patient. Arrival mode: Private vehicle, walking. History of Present Illness Patient is an 85-year-old female presenting to the emergency department complaint of cough and feeling rundown. Patient indicates over the last for 5 days she has had a nonproductive cough. She states she is feeling rundown and intermittently feels like her legs are rubbery. Patient states she has had mild diarrhea but indicates this is common for her and nothing abnormal. Patient denies any abdominal pains, chest pains, shortness of breath. Patient states that she has had temperatures of high 99 range. Review of Systems Constitutional symptoms: No fever, Skin symptoms: No rash, Eye symptoms: Vision unchanged. ENMT symptoms: No sore throat, no nasal congestion. Respiratory symptoms: Cough, No shortness of breath, Cardiovascular symptoms: No chest pain, no tachycardia. Gastrointestinal symptoms: No abdominal pain, no nausea, no vomiting. Genitourinary symptoms: No dysuria, Musculoskeletal symptoms: No back pain, no Muscle pain. Neurologic symptoms: No altered level of consciousness, Health Status Allergies: No active allergies have been recorded.. Past Medical/ Family/ Social History Medical history: No active or resolved past medical history items have been selected or recorded.. Family history: No family history items have been selected or recorded.. Social history: Social & Psychosocial Habits No Data Available . Physical Examination CONST: -Well-developed well-nourished. -Acute distress: No -Vitals: reviewed. SKIN: -Gross abnormalities: No EYES: -EOM intact, MARU: -Sclera conjunctiva: Unremarkable. ENT: - pharynx pink and dry NECK: -Supple (nngn-rr-zzpag): non-tender. CARD: -Rate and rhythm: Regular -Edema: No -Calf pain: No RESP: -Respiratory effort and chest excursion with respirations: Normal -Breath sounds equal bilaterally: Clear -Wheezes: No -Rales: No BACK: -Signs of pain with movement: No ABD: -Distended: No -Deep palpation: Non-tender, soft, no guarding or rebound tenderness EXT: Gross appearance and use of all four extremities: Unremarkable NEURO: -Patient: alert -Gross CN or Focal Neuro deficits: No -Oriented to: person, place and time. -Appearance and judgment: appropriate. Medical Decision Making 85-year-old female presenting to the emergency department for cough, feeling rundown, concerned about possible COVID. Patient denies any shortness of breath. Discussed blood work she was in agreement. Patient's blood work shows elevated lactic acid of 25, elevated creatinine of 1.36, elevated glucose of 353, sodium of 133, corrected with glucose is 137. White blood cell count is 7 within normal ranges. Patient does have low low segs and high bands. Patient's EKG shows ST depressions in V3 through V6. This was discussed reviewed with supervising physician. Patient was reviewed with supervising physician, he recommended IV azithromycin and Rocephin. I recommended admission for observation, repeat troponin, reevaluation in the morning after IV fluids, IV antibiotics. Contacted hospitalist spoke with Dr. Lu was in agreement with admission of this patient, patient will be given IV fluids for her creatinine, IV antibiotics at the request of supervising physician, have repeat troponin and EKG secondary to EKG changes, respiratory work with this patient on albuterol inhaler. Patient was in agreement. Patient will be admitted for observation. Impression and Plan Diagnosis Cough ([id number] R05, Discharge, Medical) Weakness ([id number]-PY R53.1, Discharge, Medical) Hyperglycemia (VRE18-TU R73.9, Discharge, Medical) Plan Condition: Stable. Disposition: Admit time 01/30/2020 23:17:00, Place in Observation Unit. Prescriptions: Launch prescriptions Laboratory: High Sensitivity Troponin I (Order): Blood, Stat collect, 01/30/2020 21:33 EDT, Lab Collect Lactic Acid (Order): Blood, Stat collect, 01/30/2020 21:33 EDT, Lab Collect Magnesium Level (Order): Blood, Stat collect, 01/30/2020 21:33 EDT, Lab Collect Comprehensive Metabolic Panel Standard (Order): Blood, Stat collect, 01/30/2020 21:33 EDT, Lab Collect CBC w/ Auto Diff (Order): Blood, Stat collect, 01/30/2020 21:33 EDT, Lab Collect Respiratory Panel 2.1 w COVID-19 (BioFire) (Order): Nasopharyngeal Swab, 01/30/2020 21:33 EDT, Stat collect, Nurse collect Patient Care: Pulse Oximetry Continuous (Order): 01/30/2020 21:33 EDT, Once, Titrate FIO2 and Delivery Method to Maintain SPO2 > 95%, 01/30/2020 21:33 EDT Cardiac Monitoring (Order): 01/30/2020 21:33 EDT Pharmacy: Sodium Chloride 0.9% intravenous solution 500 mL (Order): 20 mL/hr, IV Normal Saline Flush (Order): 30 mL, IV Push, Once Radiology: XR Chest 1 View Frontal (Order): 01/30/2020 21:33 EDT Stat, Chest Pain, Allow Modification Per Radiologist, Transport Mode: Portable Cardiovascular: ECG 12 Lead (Order): 01/30/2020 21:33 EDT, Stat, Weakness, Launch prescriptions Pharmacy: Tylenol (Order): 1,000 mg, PO, Once , Launch prescriptions Pharmacy: azithromycin (Order): 500 mg, IV Piggyback, Once , Launch prescriptions Pharmacy: NovoLOG (Order): 8 unit(s), SubQ, Once . Counseled: Patient, Regarding diagnosis, Regarding diagnostic results, Regarding treatment plan, Patient indicated understanding of instructions. Addendum Teaching-Supervisory Addendum-Brief I participated in the following activities of this patients care: The patient has been evaluated, the lungs are clear, heart rate and rhythm is regular no murmur, she is not dyspneic, and she denies any fever, but she has felt just a little bit weak, with her cough. She does not have a history of COPD, or cardiac disease, she does have a history of diabetes. She is very active and takes care of herself normally. She is pleasant well spoken well disposed, she states she is a little bit hungry, she will be admitted on an observation basis, because she is feeling a little weak. T H SHWETHA< ER PHYSICIAN< Yvonne Hu//2342 hours. DISCHARGE INFORMATION: Discharge Disposition: Admitted as Observation Discharge Location: PATIENT EDUCATION INFORMATION Instructions: Follow-Up: DIAGNOSIS: Cough; Hyperglycemia; Weakness Patient Understands: Yes - Patient/family/caregive r verbalizes understanding of instructions given Comment: [facility] ED Patient Education Noteon 01-31-2020 ED Patient Education Note Education Materials [facility] ED Patient Summaryon 020 ED Patient Summary [facility] - Emergency Department [address] [place] [id number] PATIENT DISCHARGE INSTRUCTIONS Patient Information Name: LUIS FELIPE DAVIS Age: 85 Years Date of : 1935 Reason For Visit: Cough; Weakness; COVID POSITIVE, HYPERGLYCEMIA Arrival Time: 01/30/2020 21:16:46 Primary Care Physician: Provider, None Attending Physician: Will Tracy DO Comment: Visit Diagnosis: Diagnoses This Visit Cough (R05) Cough ([id number]) Hyperglycemia (R73.9) Weakness ([id number]) Weakness (R53.1) Prescription Information: If you have been given a prescription for narcotics, seek immediate medical attention if you have any difficulty breathing or any sudden status changes such as confusion and sleepiness. If you or anyone you know is experiencing suicidal thoughts, mental health, alcohol and/or drug addiction problems; contact the [facility] 31/01 Crisis Hotline -text 4hope to 741741. If you received any narcotics, sedation, or any other medication that causes drowsiness for the next 24 hours, unless otherwise directed: ? Do not drive a car. ? Do not operate machinery such as power tools, lawn mowers, drills, sewing machines, or stoves ? Avoid alcoholic beverages and drugs for allergies, nerves, or sleep ? Do not make important personal or business decisions or sign any legal documents Medication Information: The exam and treatment you received today in the [facility] Emergency Department were for an urgent problem and are not intended as complete care. It is important for you to follow up with a doctor, nurse practitioner, or physician?s virtual assistant for advertisers for ongoing care. If your symptoms become worse or you do not improve as expected and you are unable to reach your usual health care provider, you should return to the Emergency Department, we are available 24 hours a day. For those patients who have received Radiology results, the interpretation of your X-ray as given to you by our Emergency Department physician is only a preliminary report. The Radiologist will review your films and if there is a change in the diagnosis you will be notified by phone. Please make sure you have provided a working phone number so we can reach you if necessary. In the event that you had a lab culture while you were a patient in the Emergency Department, you will be notified by phone if there is a need to change your antibiotic. Please make sure you have provided a working phone number so we can reach you if necessary. [facility] Emergency Department has provided you with a complete list of medications post discharge. Please inform your acquisition lead/provider of your visit and for further instruction on these medications. Any specific questions regarding your chronic medications and dosages should be discussed with your primary care physician(s) and/or pharmacist. Medications to Continue That Have Not Changed Other Medications carvedilol (Coreg) Oral 2 times a day. glimepiride Oral every day. hydroCHLOROthiazide Oral every day. omeprazole Oral every day. sertraline Oral every day. Visit Information Allergies: Substance Reaction Symptoms Type Comments penicillin Drug sulfa drug Drug tetanus/diphth/pertuss (Tdap) adult/adol Drug Vital Signs: Vitals and Measurements this Visit (last charted value for your 01/30/2020 visit) Vital Signs This Visit Temperature Oral: 37.9 DegC Peripheral Pulse Rate: 79 bpm Respiratory Rate: 18 br/min Systolic Blood Pressure: 136 mmHg Diastolic Blood Pressure: 63 mmHg SpO2: 96 % Oxygen Therapy: Room air Measurements This Visit Height/Length Dosin.000 cm Height/Length Estimated: 160.000 cm Weight Dosin.000 kg Weight Estimated: 77.000 kg Problems List: Problem Onset Comments Disease caused by 2019 novel coronavirus 01/30/20 Problem added by Rule (IC_COVID19_AUTO_PROBLE M) following Respiratory Panel 2.1 (BioFire) from Nasopharyngeal Swab collected on 30-JAN-2020 21:33:00 EDT tested positive for COVID-19. Patient Education Viruses or Bacteria What?s got you sick? Antibiotics only treat bacterial infections. Viral illnesses cannot be treated with antibiotics. When an antibiotic is not prescribed, ask your healthcare professional for tips on how to relieve symptoms and feel better. Usual Cause Illness Viruses Bacteria Antibiotic Needed Cold/Runny Nose NO Bronchitis/Chest Cold (in otherwise healthy children and adults) NO Whooping Cough Yes Flu NO Strep Throat Yes Sore Throat (except strep) NO Fluid in the middle ear (otitis media with effusion) NO Urinary Tract Infection Yes Antibiotics Aren?t Always the Answer www.cdc.gov/getsmart GET SMART Know When Antibiotics Work U.S. Department of Health and Human Services Centers for Disease Control and Prevention March 2014 [facility] Education Noteon 01-31-2020 Education Note Education Materials COVID-19 COVID-19, also known as coronavirus disease or novel coronavirus, is caused by a type of virus that causes respiratory illness. This may lead to inflammation and the buildup of mucus and fluids in the airway of the lungs (pneumonia). There are many different coronaviruses. Most of these viruses only affect animals, but sometimes these viruses can change and infect people. What are the causes? This illness is caused by a virus. You may catch the virus by: ? Breathing in droplets from an infected person's cough or sneeze. ? Touching something, like a table or a doorknob, that was exposed to the virus (contaminated) and then touching your mouth, nose, or eyes. ? Being around animals that carry the virus, or eating uncooked or undercooked meat or animal products that contain the virus. What increases the risk? You are more likely to develop this condition if you: ? Live in or travel to an area with a COVID-19 outbreak. ? Come in contact with a sick person who recently traveled to an area with a COVID-19 outbreak. ? Provide care for or live with a person who is infected with COVID-19. What are the signs or symptoms? COVID-19 causes respiratory illness that can lead to pneumonia. Symptoms of pneumonia may include: ? A fever. ? A cough. ? Difficulty breathing. How is this diagnosed? This condition may be diagnosed based on: ? Your signs and symptoms, especially if: ? You live in an area with a COVID-19 outbreak. ? You recently traveled to or from an area where the virus is common. ? You provide care for or live with a person who was diagnosed with COVID-19. ? A physical exam. ? Lab tests, which may include: ? A nasal swab to take a sample of fluid from your nose. ? A throat swab to take a sample of fluid from your throat. ? A sample of mucus from your lungs (sputum). ? Blood tests. How is this treated? There is no medicine to treat COVID-19. Your health care provider will talk with you about ways to treat your symptoms. This may include rest, fluids, and rarw-rlf-ljkekzb medicines. Follow these instructions at home: Lifestyle ? Use a cool-mist humidifier to add moisture to the air. This can help you breathe more easily. ? Do not use any products that contain nicotine or tobacco, such as cigarettes, e-cigarettes, and chewing tobacco. If you need help quitting, ask your health care provider. ? Rest at home as told by your health care provider. ? Return to your normal activities as told by your health care provider. Ask your health care provider what activities are safe for you. General instructions ? Take kjig-xmg-ediushg and prescription medicines only as told by your health care provider. ? Drink enough fluid to keep your urine pale yellow. ? Keep all follow-up visits as told by your health care provider. This is important. How is this prevented? There is no vaccine to help prevent COVID-19 infection. However, there are steps you can take to protect yourself and others from this virus. To protect yourself: ? Do not travel to areas where COVID-19 is a risk. The areas where the coronavirus is reported change often. To identify high-risk areas, check the CDC travel website: wwwnc.cdc.gov/travel/no tices ? If you live in, or must travel to, an area where the coronavirus is a risk, take precautions to avoid infection. ? Stay away from people who are sick. ? Stay away from places where there are animals that may carry the virus. This includes places where animals and animal products are sold. Note that both living and animals can carry the virus. ? Do not eat meat or fish in areas of a coronavirus outbreak. If you must eat fish or meat, make sure that it is cooked very well. ? Wash your hands often with soap and water. If soap and water are not available, use an alcohol-based hand medical staff credentialing coordinator. ? Avoid touching your mouth, face, eyes, or nose. To protect others: If you have symptoms, take steps to prevent the virus from spreading to others. ? If you think you have a coronavirus infection, contact your health care provider right away. Tell your health care team that you think you may have a COVID-19 infection. ? Stay home. Leave your house only to seek medical care. ? Do not travel while you are sick. ? Wash your hands often with soap and water. If soap and water are not available, use alcohol-based hand medical staff credentialing coordinator. ? Stay away from other members of your household. If possible, stay in your own room, separate from others. Use a different bathroom. ? Make sure that all people in your household wash their hands well and often. ? Cough or sneeze into a tissue or your sleeve or elbow. Do not cough or sneeze into your hand or into the air. ? Wear a face mask. Where to find more information ? Centers for Disease Control and Prevention: www.cdc.gov/coronavirus /2019-ncov/index.html ? World Health Organization: www.who.int/health-topi cs/coronavirus Contact a health care provider if: ? You have traveled to an area where COVID-19 is a risk and you have symptoms of the infection. ? You have contact with someone who has traveled to an area where COVID-19 is a risk and you have symptoms of the infection. Get help right away if: ? You have trouble breathing. ? You have chest pain. Summary ? COVID-19 is caused by a type of virus that causes respiratory illness. This may lead to inflammation and the buildup of mucus and fluids in the airway of the lungs (pneumonia). ? You are more likely to develop this condition if you live in or travel to an area with a COVID-19 outbreak. ? There is no medicine to treat COVID-19. Your health care provider will talk with you about ways to treat your symptoms. ? Take steps to protect yourself and others from infection. Wash your hands often. Stay away from other people who are sick and wear a mask if you are sick. This information is not intended to replace advice given to you by your health care provider. Make sure you discuss any questions you have with your health care provider. Document Released: 08/02/2019 Document Revised: 09/20/2019 Document Reviewed: 08/02/2019 [employer] Interactive Patient Education ? 2020 [employer] Please perform self isolation for at least the next 14 days from positive test. Recommend you refer to cdc website for further guidance. Please call your PCP. If you develop further symptoms of worsening fever, cough or develop shortness of breath or chest pains please come back to the ER. COVID-19 COVID-19, also known as coronavirus disease or novel coronavirus, is caused by a type of virus that causes respiratory illness. This may lead to inflammation and the buildup of mucus and fluids in the airway of the lungs (pneumonia). There are many different coronaviruses. Most of these viruses only affect animals, but sometimes these viruses can change and infect people. What are the causes? This illness is caused by a virus. You may catch the virus by: ? Breathing in droplets from an infected person's cough or sneeze. ? Touching something, like a table or a doorknob, that was exposed to the virus (contaminated) and then touching your mouth, nose, or eyes. ? Being around animals that carry the virus, or eating uncooked or undercooked meat or animal products that contain the virus. What increases the risk? You are more likely to develop this condition if you: ? Live in or travel to an area with a COVID-19 outbreak. ? Come in contact with a sick person who recently traveled to an area with a COVID-19 outbreak. ? Provide care for or live with a person who is infected with COVID-19. What are the signs or symptoms? COVID-19 causes respiratory illness that can lead to pneumonia. Symptoms of pneumonia may include: ? A fever. ? A cough. ? Difficulty breathing. How is this diagnosed? This condition may be diagnosed based on: ? Your signs and symptoms, especially if: ? You live in an area with a COVID-19 outbreak. ? You recently traveled to or from an area where the virus is common. ? You provide care for or live with a person who was diagnosed with COVID-19. ? A physical exam. ? Lab tests, which may include: ? A nasal swab to take a sample of fluid from your nose. ? A throat swab to take a sample of fluid from your throat. ? A sample of mucus from your lungs (sputum). ? Blood tests. How is this treated? There is no medicine to treat COVID-19. Your health care provider will talk with you about ways to treat your symptoms. This may include rest, fluids, and sprq-pzw-hejhalx medicines. Follow these instructions at home: Lifestyle ? Use a cool-mist humidifier to add moisture to the air. This can help you breathe more easily. ? Do not use any products that contain nicotine or tobacco, such as cigarettes, e-cigarettes, and chewing tobacco. If you need help quitting, ask your health care provider. ? Rest at home as told by your health care provider. ? Return to your normal activities as told by your health care provider. Ask your health care provider what activities are safe for you. General instructions ? Take vrig-wle-squdtrc and prescription medicines only as told by your health care provider. ? Drink enough fluid to keep your urine pale yellow. ? Keep all follow-up visits as told by your health care provider. This is important. How is this prevented? There is no vaccine to help prevent COVID-19 infection. However, there are steps you can take to protect yourself and others from this virus. To protect yourself: ? Do not travel to areas where COVID-19 is a risk. The areas where the coronavirus is reported change often. To identify high-risk areas, check the CDC travel website: wwwnc.cdc.gov/travel/no tices ? If you live in, or must travel to, an area where the coronavirus is a risk, take precautions to avoid infection. ? Stay away from people who are sick. ? Stay away from places where there are animals that may carry the virus. This includes places where animals and animal products are sold. Note that both living and animals can carry the virus. ? Do not eat meat or fish in areas of a coronavirus outbreak. If you must eat fish or meat, make sure that it is cooked very well. ? Wash your hands often with soap and water. If soap and water are not available, use an alcohol-based hand medical staff credentialing coordinator. ? Avoid touching your mouth, face, eyes, or nose. To protect others: If you have symptoms, take steps to prevent the virus from spreading to others. ? If you think you have a coronavirus infection, contact your health care provider right away. Tell your health care team that you think you may have a COVID-19 infection. ? Stay home. Leave your house only to seek medical care. ? Do not travel while you are sick. ? Wash your hands often with soap and water. If soap and water are not available, use alcohol-based hand medical staff credentialing coordinator. ? Stay away from other members of your household. If possible, stay in your own room, separate from others. Use a different bathroom. ? Make sure that all people in your household wash their hands well and often. ? Cough or sneeze into a tissue or your sleeve or elbow. Do not cough or sneeze into your hand or into the air. ? Wear a face mask. Where to find more information ? Centers for Disease Control and Prevention: www.cdc.gov/coronavirus /2019-ncov/index.html ? World Health Organization: www.who.int/health-topi cs/coronavirus Contact a health care provider if: ? You have traveled to an area where COVID-19 is a risk and you have symptoms of the infection. ? You have contact with someone who has traveled to an area where COVID-19 is a risk and you have symptoms of the infection. Get help right away if: ? You have trouble breathing. ? You have chest pain. Summary ? COVID-19 is caused by a type of virus that causes respiratory illness. This may lead to inflammation and the buildup of mucus and fluids in the airway of the lungs (pneumonia). ? You are more likely to develop this condition if you live in or travel to an area with a COVID-19 outbreak. ? There is no medicine to treat COVID-19. Your health care provider will talk with you about ways to treat your symptoms. ? Take steps to protect yourself and others from infection. Wash your hands often. Stay away from other people who are sick and wear a mask if you are sick. This information is not intended to replace advice given to you by your health care provider. Make sure you discuss any questions you have with your health care provider. Document Released: 08/02/2019 Document Revised: 09/20/2019 Document Reviewed: 08/02/2019 [employer] Interactive Patient Education ? 2020 [employer]. What to do if you are sick with coronavirus disease 2019 (COVID-19) If you are sick with COVID-19 or suspect you are infected with the virus that causes COVID-19, follow the steps below to help prevent the disease from spreading to people in your home and communityStay home except to get medical care You should restrict activities outside your home, except for getting medical care. Do not go to work, school, or public areas. Avoid using public transportation, ride-sharing, or taxis. Separate yourself from other people and animals in your home People: As much as possible, you should stay in a specific room and away from other people in your home. Also, you should use a separate bathroom, if available. Animals: Do not handle pets or other animals while sick. See COVID-19 and Animals for more information. Call ahead before visiting your doctor If you have a medical appointment, call the healthcare provider and tell them that you have or may have COVID-19. This will help the healthcare provider's office take steps to keep other people from getting infected or exposed. Wear a facemask You should wear a facemask when you are around other people (e.g., sharing a room or vehicle) or pets and before you enter a healthcare provider's office. If you are not able to wear a facemask (for example, because it causes trouble breathing), then people who live with you should not stay in the same room with you, or they should wear a facemask if they enter your room. Cover your coughs and sneezes Cover your mouth and nose with a tissue when you cough or sneeze. Throw used tissues in a lined trash can; immediately wash your hands with soap and water for at least 20 seconds or clean your hands with an alcohol-based hand medical staff credentialing coordinator that contains at least 60-95% alcohol covering all surfaces of your hands and rubbing them together until they feel dry. Soap and water should be used preferentially if hands are visibly dirty. Avoid sharing personal household items You should not share dishes, drinking glasses, cups, eating utensils, towels, or bedding with other people or pets in your home. After using these items, they should be washed thoroughly with soap and water. Clean your hands often Wash your hands often with soap and water for at least 20 seconds. If soap and water are not available, clean your hands with an alcohol-based hand medical staff credentialing coordinator that contains at least 60% alcohol, covering all surfaces of your hands and rubbing them together until they feel dry. Soap and water should be used preferentially if hands are visibly dirty. Avoid touching your eyes, nose, and mouth with unwashed hands. Clean all ?high-touch? surfaces every day High touch surfaces include counters, tabletops, doorknobs, bathroom fixtures, toilets, phones, keyboards, tablets, and bedside tables. Also, clean any surfaces that may have blood, stool, or body fluids on them. Use a household cleaning spray or wipe, according to the label instructions. Labels contain instructions for safe and effective use of the cleaning product including precautions you should take when applying the product, such as wearing gloves and making sure you have good ventilation during use of the product. Monitor your symptoms Seek prompt medical attention if your illness is worsening (e.g., difficulty breathing). Before seeking care, call your healthcare provider and tell them that you have, or are being evaluated for, COVID-19. Put on a facemask before you enter the facility. These steps will help the healthcare provider's office to keep other people in the office or waiting room from getting infected or exposed. Ask your healthcare provider to call the local or state health department. Persons who are placed under active monitoring or facilitated self-monitoring should follow instructions provided by their local health department or occupational health professionals, as appropriate. If you have a medical emergency and need to call 911, notify the dispatch personnel that you have, or are being evaluated for COVID-19. If possible, put on a facemask before emergency medical services arrive. Discontinuing home isolation Patients with confirmed COVID-19 should remain under home isolation precautions until the risk of secondary transmission to others is thought to be low. The decision to discontinue home isolation precautions should be made on a njah-dv-[id number] basis, in consultation with healthcare providers and state and local health departments. [id number] 09/13/2019 Normal [facility] Extra Max 01-31-2020 Tube Collected Yes [facility] Comment on above: Performed By: #### 1 [id number], [id number], [id number], [id number] #### [facility] (DEFAULT) [address] [place] [address] Infection Prevention Noteon 01-31-2020 Infection Prevention Note Case entered into the [place] Disease Reporting System (ODRS). ODRS # [id number]. Result reported to Ally Irvin, [facility] Layboy Operator, via text message. Normal [facility] Inpatient Patient Summaryon 01-31-2020 Inpatient [place] [address] Patient Discharge Instructions Name: LUIS FELIPE DAVIS : 1935 Patient Address: [address] [place] [address] Primary Care Provider: Name: Lazaro Bergman After you are discharged if you find you have any questions, please, call [phone] ext [phone] to speak to a nurse. Discharge Diagnosis: 1:COVID-19; 3:Cough; Hyperglycemia; Weakness Prescription Information: If you have been given a prescription for narcotics, seek immediate medical attention if you have any difficulty breathing or any sudden status changes such as confusion and sleepiness. If you or anyone you know is experiencing suicidal thoughts, mental health, alcohol and/or drug addiction problems; contact the [facility] 31/01 Crisis Hotline -Text 3DWOL rr [phone]. If you received any narcotics, sedation, or any other medication that causes drowsiness for the next 24 hours, unless otherwise directed: ? Do not drive a car. ? Do not operate machinery such as power tools, lawn mowers, drills, sewing machines, or stoves ? Avoid alcoholic beverages and drugs for allergies, nerves, or sleep ? Do not make important personal or business decisions or sign any legal documents [facility] would like to thank you for allowing us to assist you with your healthcare needs. The following includes patient education materials and information regarding your injury/illness. LUIS FELIPE DAVIS has been given the following list of follow-up instructions, prescriptions, and patient education materials: Follow-up Instructions With: Address: When: Lazaro Bergman [address] [place] [id number] Business (1) 02/13/2020 3:30 PM Medications During the course of your visit, your medication list was updated with the most current information. The details of those changes are reflected below: Medications That Were Updated - Follow Below Instructions Other Medications Updated: carvedilol (Coreg 12.5 mg oral tablet) 1 tab(s) Oral 2 times a day. Updated: glimepiride (glimepiride 2 mg oral tablet) 1 tab(s) Oral every day. Updated: hydroCHLOROthiazide (hydroCHLOROthiazide 25 mg oral tablet) 1 tab(s) Oral every day. Medications to Continue That Have Not Changed Other Medications hyoscyamine (hyoscyamine 0.125 mg oral tablet) 1 tab(s) Sublingual once a day after breakfast. lisinopril (lisinopril 10 mg oral tablet) 1 tab(s) Oral every day. omeprazole (omeprazole 40 mg oral delayed release capsule) 1 cap(s) Oral every day. sertraline (sertraline 100 mg oral tablet) 1 tab(s) Oral At bedtime. temazepam (temazepam 15 mg oral capsule) 1 cap(s) Oral once a day (at bedtime). It is important to always keep an active list of medications available so that you can share with other providers and manage your medications appropriately. As an additional courtesy, we are also providing you with your final active medications list that you can keep with you. carvedilol (Coreg 12.5 mg oral tablet) 1 tab(s) Oral 2 times a day. glimepiride (glimepiride 2 mg oral tablet) 1 tab(s) Oral every day. hydroCHLOROthiazide (hydroCHLOROthiazide 25 mg oral tablet) 1 tab(s) Oral every day. hyoscyamine (hyoscyamine 0.125 mg oral tablet) 1 tab(s) Sublingual once a day after breakfast. lisinopril (lisinopril 10 mg oral tablet) 1 tab(s) Oral every day. omeprazole (omeprazole 40 mg oral delayed release capsule) 1 cap(s) Oral every day. sertraline (sertraline 100 mg oral tablet) 1 tab(s) Oral At bedtime. temazepam (temazepam 15 mg oral capsule) 1 cap(s) Oral once a day (at bedtime). Take only the medications listed above. Contact your doctor prior to taking any medications not on this list. Medication leaflets, if any, will display below Diet & Activity Patient Activity Level: As Tolerated Patient Diet: Patient Activity Restrictions: Patient education materials, if any, will display below COVID-19 COVID-19, also known as coronavirus disease or novel coronavirus, is caused by a type of virus that causes respiratory illness. This may lead to inflammation and the buildup of mucus and fluids in the airway of the lungs (pneumonia). There are many different coronaviruses. Most of these viruses only affect animals, but sometimes these viruses can change and infect people. What are the causes? This illness is caused by a virus. You may catch the virus by: ? Breathing in droplets from an infected person's cough or sneeze. ? Touching something, like a table or a doorknob, that was exposed to the virus (contaminated) and then touching your mouth, nose, or eyes. ? Being around animals that carry the virus, or eating uncooked or undercooked meat or animal products that contain the virus. What increases the risk? You are more likely to develop this condition if you: ? Live in or travel to an area with a COVID-19 outbreak. ? Come in contact with a sick person who recently traveled to an area with a COVID-19 outbreak. ? Provide care for or live with a person who is infected with COVID-19. What are the signs or symptoms? COVID-19 causes respiratory illness that can lead to pneumonia. Symptoms of pneumonia may include: ? A fever. ? A cough. ? Difficulty breathing. How is this diagnosed? This condition may be diagnosed based on: ? Your signs and symptoms, especially if: ? You live in an area with a COVID-19 outbreak. ? You recently traveled to or from an area where the virus is common. ? You provide care for or live with a person who was diagnosed with COVID-19. ? A physical exam. ? Lab tests, which may include: ? A nasal swab to take a sample of fluid from your nose. ? A throat swab to take a sample of fluid from your throat. ? A sample of mucus from your lungs (sputum). ? Blood tests. How is this treated? There is no medicine to treat COVID-19. Your health care provider will talk with you about ways to treat your symptoms. This may include rest, fluids, and ueel-gej-loletrs medicines. Follow these instructions at home: Lifestyle ? Use a cool-mist humidifier to add moisture to the air. This can help you breathe more easily. ? Do not use any products that contain nicotine or tobacco, such as cigarettes, e-cigarettes, and chewing tobacco. If you need help quitting, ask your health care provider. ? Rest at home as told by your health care provider. ? Return to your normal activities as told by your health care provider. Ask your health care provider what activities are safe for you. General instructions ? Take zpdm-mxv-uxqfcvj and prescription medicines only as told by your health care provider. ? Drink enough fluid to keep your urine pale yellow. ? Keep all follow-up visits as told by your health care provider. This is important. How is this prevented? There is no vaccine to help prevent COVID-19 infection. However, there are steps you can take to protect yourself and others from this virus. To protect yourself: ? Do not travel to areas where COVID-19 is a risk. The areas where the coronavirus is reported change often. To identify high-risk areas, check the [facility] travel website: wwwnc.cdc.gov/travel/no tices ? If you live in, or must travel to, an area where the coronavirus is a risk, take precautions to avoid infection. ? Stay away from people who are sick. ? Stay away from places where there are animals that may carry the virus. This includes places where animals and animal products are sold. Note that both living and animals can carry the virus. ? Do not eat meat or fish in areas of a coronavirus outbreak. If you must eat fish or meat, make sure that it is cooked very well. ? Wash your hands often with soap and water. If soap and water are not available, use an alcohol-based hand medical staff credentialing coordinator. ? Avoid touching your mouth, face, eyes, or nose. To protect others: If you have symptoms, take steps to prevent the virus from spreading to others. ? If you think you have a coronavirus infection, contact your health care provider right away. Tell your health care team that you think you may have a COVID-19 infection. ? Stay home. Leave your house only to seek medical care. ? Do not travel while you are sick. ? Wash your hands often with soap and water. If soap and water are not available, use alcohol-based hand medical staff credentialing coordinator. ? Stay away from other members of your household. If possible, stay in your own room, separate from others. Use a different bathroom. ? Make sure that all people in your household wash their hands well and often. ? Cough or sneeze into a tissue or your sleeve or elbow. Do not cough or sneeze into your hand or into the air. ? Wear a face mask. Where to find more information ? Centers for Disease Control and Prevention: www.cdc.gov/coronavirus /2019-ncov/index.html ? World Health Organization: www.who.int/health-topi cs/coronavirus Contact a health care provider if: ? You have traveled to an area where COVID-19 is a risk and you have symptoms of the infection. ? You have contact with someone who has traveled to an area where COVID-19 is a risk and you have symptoms of the infection. Get help right away if: ? You have trouble breathing. ? You have chest pain. Summary ? COVID-19 is caused by a type of virus that causes respiratory illness. This may lead to inflammation and the buildup of mucus and fluids in the airway of the lungs (pneumonia). ? You are more likely to develop this condition if you live in or travel to an area with a COVID-19 outbreak. ? There is no medicine to treat COVID-19. Your health care provider will talk with you about ways to treat your symptoms. ? Take steps to protect yourself and others from infection. Wash your hands often. Stay away from other people who are sick and wear a mask if you are sick. This information is not intended to replace advice given to you by your health care provider. Make sure you discuss any questions you have with your health care provider. Document Released: 08/02/2019 Document Revised: 09/20/2019 Document Reviewed: 08/02/2019 [employer] Interactive Patient Education ? 2019 [employer] Please perform self isolation for at least the next 14 days from positive test. Recommend you refer to cdc website for further guidance. Please call your PCP. If you develop further symptoms of worsening fever, cough or develop shortness of breath or chest pains please come back to the ER. COVID-19 COVID-19, also known as coronavirus disease or novel coronavirus, is caused by a type of virus that causes respiratory illness. This may lead to inflammation and the buildup of mucus and fluids in the airway of the lungs (pneumonia). There are many different coronaviruses. Most of these viruses only affect animals, but sometimes these viruses can change and infect people. What are the causes? This illness is caused by a virus. You may catch the virus by: ? Breathing in droplets from an infected person's cough or sneeze. ? Touching something, like a table or a doorknob, that was exposed to the virus (contaminated) and then touching your mouth, nose, or eyes. ? Being around animals that carry the virus, or eating uncooked or undercooked meat or animal products that contain the virus. What increases the risk? You are more likely to develop this condition if you: ? Live in or travel to an area with a COVID-19 outbreak. ? Come in contact with a sick person who recently traveled to an area with a COVID-19 outbreak. ? Provide care for or live with a person who is infected with COVID-19. What are the signs or symptoms? COVID-19 causes respiratory illness that can lead to pneumonia. Symptoms of pneumonia may include: ? A fever. ? A cough. ? Difficulty breathing. How is this diagnosed? This condition may be diagnosed based on: ? Your signs and symptoms, especially if: ? You live in an area with a COVID-19 outbreak. ? You recently traveled to or from an area where the virus is common. ? You provide care for or live with a person who was diagnosed with COVID-19. ? A physical exam. ? Lab tests, which may include: ? A nasal swab to take a sample of fluid from your nose. ? A throat swab to take a sample of fluid from your throat. ? A sample of mucus from your lungs (sputum). ? Blood tests. How is this treated? There is no medicine to treat COVID-19. Your health care provider will talk with you about ways to treat your symptoms. This may include rest, fluids, and wtbe-pie-uazaemr medicines. Follow these instructions at home: Lifestyle ? Use a cool-mist humidifier to add moisture to the air. This can help you breathe more easily. ? Do not use any products that contain nicotine or tobacco, such as cigarettes, e-cigarettes, and chewing tobacco. If you need help quitting, ask your health care provider. ? Rest at home as told by your health care provider. ? Return to your normal activities as told by your health care provider. Ask your health care provider what activities are safe for you. General instructions ? Take gwjj-bua-mzrpkcc and prescription medicines only as told by your health care provider. ? Drink enough fluid to keep your urine pale yellow. ? Keep all follow-up visits as told by your health care provider. This is important. How is this prevented? There is no vaccine to help prevent COVID-19 infection. However, there are steps you can take to protect yourself and others from this virus. To protect yourself: ? Do not travel to areas where COVID-19 is a risk. The areas where the coronavirus is reported change often. To identify high-risk areas, check the CDC travel website: wwwnc.cdc.gov/travel/no tices ? If you live in, or must travel to, an area where the coronavirus is a risk, take precautions to avoid infection. ? Stay away from people who are sick. ? Stay away from places where there are animals that may carry the virus. This includes places where animals and animal products are sold. Note that both living and animals can carry the virus. ? Do not eat meat or fish in areas of a coronavirus outbreak. If you must eat fish or meat, make sure that it is cooked very well. ? Wash your hands often with soap and water. If soap and water are not available, use an alcohol-based hand medical staff credentialing coordinator. ? Avoid touching your mouth, face, eyes, or nose. To protect others: If you have symptoms, take steps to prevent the virus from spreading to others. ? If you think you have a coronavirus infection, contact your health care provider right away. Tell your health care team that you think you may have a COVID-19 infection. ? Stay home. Leave your house only to seek medical care. ? Do not travel while you are sick. ? Wash your hands often with soap and water. If soap and water are not available, use alcohol-based hand medical staff credentialing coordinator. ? Stay away from other members of your household. If possible, stay in your own room, separate from others. Use a different bathroom. ? Make sure that all people in your household wash their hands well and often. ? Cough or sneeze into a tissue or your sleeve or elbow. Do not cough or sneeze into your hand or into the air. ? Wear a face mask. Where to find more information ? Centers for Disease Control and Prevention: www.cdc.gov/coronavirus /2019-ncov/index.html ? World Health Organization: www.who.int/health-topi cs/coronavirus Contact a health care provider if: ? You have traveled to an area where COVID-19 is a risk and you have symptoms of the infection. ? You have contact with someone who has traveled to an area where COVID-19 is a risk and you have symptoms of the infection. Get help right away if: ? You have trouble breathing. ? You have chest pain. Summary ? COVID-19 is caused by a type of virus that causes respiratory illness. This may lead to inflammation and the buildup of mucus and fluids in the airway of the lungs (pneumonia). ? You are more likely to develop this condition if you live in or travel to an area with a COVID-19 outbreak. ? There is no medicine to treat COVID-19. Your health care provider will talk with you about ways to treat your symptoms. ? Take steps to protect yourself and others from infection. Wash your hands often. Stay away from other people who are sick and wear a mask if you are sick. This information is not intended to replace advice given to you by your health care provider. Make sure you discuss any questions you have with your health care provider. Document Released: 08/02/2019 Document Revised: 09/20/2019 Document Reviewed: 08/02/2019 [employer] Interactive Patient Education ? 2019 [employer]. What to do if you are sick with coronavirus disease 2019 (COVID-19) If you are sick with COVID-19 or suspect you are infected with the virus that causes COVID-19, follow the steps below to help prevent the disease from spreading to people in your home and communityStay home except to get medical care You should restrict activities outside your home, except for getting medical care. Do not go to work, school, or public areas. Avoid using public transportation, ride-sharing, or taxis. Separate yourself from other people and animals in your home People: As much as possible, you should stay in a specific room and away from other people in your home. Also, you should use a separate bathroom, if available. Animals: Do not handle pets or other animals while sick. See COVID-19 and Animals for more information. Call ahead before visiting your doctor If you have a medical appointment, call the healthcare provider and tell them that you have or may have COVID-19. This will help the healthcare provider's office take steps to keep other people from getting infected or exposed. Wear a facemask You should wear a facemask when you are around other people (e.g., sharing a room or vehicle) or pets and before you enter a healthcare provider's office. If you are not able to wear a facemask (for example, because it causes trouble breathing), then people who live with you should not stay in the same room with you, or they should wear a facemask if they enter your room. Cover your coughs and sneezes Cover your mouth and nose with a tissue when you cough or sneeze. Throw used tissues in a lined trash can; immediately wash your hands with soap and water for at least 20 seconds or clean your hands with an alcohol-based hand medical staff credentialing coordinator that contains at least 60-95% alcohol covering all surfaces of your hands and rubbing them together until they feel dry. Soap and water should be used preferentially if hands are visibly dirty. Avoid sharing personal household items You should not share dishes, drinking glasses, cups, eating utensils, towels, or bedding with other people or pets in your home. After using these items, they should be washed thoroughly with soap and water. Clean your hands often Wash your hands often with soap and water for at least 20 seconds. If soap and water are not available, clean your hands with an alcohol-based hand medical staff credentialing coordinator that contains at least 60% alcohol, covering all surfaces of your hands and rubbing them together until they feel dry. Soap and water should be used preferentially if hands are visibly dirty. Avoid touching your eyes, nose, and mouth with unwashed hands. Clean all ?high-touch? surfaces every day High touch surfaces include counters, tabletops, doorknobs, bathroom fixtures, toilets, phones, keyboards, tablets, and bedside tables. Also, clean any surfaces that may have blood, stool, or body fluids on them. Use a household cleaning spray or wipe, according to the label instructions. Labels contain instructions for safe and effective use of the cleaning product including precautions you should take when applying the product, such as wearing gloves and making sure you have good ventilation during use of the product. Monitor your symptoms Seek prompt medical attention if your illness is worsening (e.g., difficulty breathing). Before seeking care, call your healthcare provider and tell them that you have, or are being evaluated for, COVID-19. Put on a facemask before you enter the facility. These steps will help the healthcare provider's office to keep other people in the office or waiting room from getting infected or exposed. Ask your healthcare provider to call the local or state health department. Persons who are placed under active monitoring or facilitated self-monitoring should follow instructions provided by their local health department or occupational health professionals, as appropriate. If you have a medical emergency and need to call 911, notify the dispatch personnel that you have, or are being evaluated for COVID-19. If possible, put on a facemask before emergency medical services arrive. Discontinuing home isolation Patients with confirmed COVID-19 should remain under home isolation precautions until the risk of secondary transmission to others is thought to be low. The decision to discontinue home isolation precautions should be made on a fppe-il-nmal basis, in consultation with healthcare providers and state and local health departments. [place] [id number] 09/13/2019 Viruses or Bacteria What?s got you sick? Antibiotics only treat bacterial infections. Viral illnesses cannot be treated with antibiotics. When an antibiotic is not prescribed, ask your healthcare professional for tips on how to relieve symptoms and feel better. Usual Cause Illness Viruses Bacteria Antibiotic Needed Cold/Runny Nose NO Bronchitis/Chest Cold (in otherwise healthy children and adults) NO Whooping Cough Yes Flu NO Strep Throat Yes Sore Throat (except strep) NO Fluid in the middle ear (otitis media with effusion) NO Urinary Tract Infection Yes Antibiotics Aren?t Always the Answer www.cdc.gov/getsmart GET SMART Know When Antibiotics Work [place] Department of Health and Human Services Centers for Disease Control and Prevention March 2014 Normal [facility] Lactic Acidon 01-31-2020 Lactate [Moles/Vol] 28.8 mg/dL High 4.5-19.8 [facility] Comment on above: Performed By: #### 1 [id number], [id number], 6733791, [id number], 2392686345, 8639352, 962618376 #### [facility] (DEFAULT) [address] [place] [address] 62152 Lactate [Moles/Vol] 25.5 mg/dL High 4.5-19.8 [facility] Comment on above: Performed By: #### 2 [id number] #### [facility] (DEFAULT) [address] [place] [address] 30739 Magnesiumon 01-31-2020 Magnesium [Mass/Vol] 1.69 mg/dL Low 1.80-2.50 [facility] Comment on above: Performed By: #### 1 [id number], [id number], 2037407, 6872341876, 5975157543, 0164160, 931223733 #### [facility] (DEFAULT) [address] [place] [address] 36359 Manual Differential 3on 01-09 .Morphology? Normal Normal [facility] Comment on above: Order Comment: Order added by Kalpesh. Performed By: #### 1 [id number], [id number], 0057961, 9364830704, 0604288330, 9005612, 480915704 #### [facility] (DEFAULT) [address] [place] [address] 86817 Band form neutrophils/100 WBC (Bld) 20 % High <=6 [facility] Comment on above: Order Comment: Order added by Kalpesh. Performed By: #### 1 [id number], [id number], 9603131, 5383920572, 1665071092, 0321933, 679740871 #### [facility] (DEFAULT) [address] [place] [address] 61602 Basophil Man 0 % Normal <=1 [facility] Comment on above: Order Comment: Order added by Kalpesh. Performed By: #### 1 [id number], 4961216268, 4188055, 6401528774, 9614116910, 3038822, 738695050 #### [facility] (DEFAULT) [address] [place] [address] 54374 Eosinophils/100 WBC (Bld) 0 % Normal <=5 [facility] Comment on above: Order Comment: Order added by Kalpesh. Performed By: #### 1 [id number], 6382699179, 4250807, 6453465439, 8020659121, 7266503, 729111710 #### [facility] (DEFAULT) [address] [place] [address] 17428 Lymphocytes/100 WBC (Bld) 25 % Normal 14-48 [facility] Comment on above: Order Comment: Order added by Discern. Performed By: #### 1 [id number], [id number], 1403386, 0055024176, 4623350850, 6469698, 137620965 #### [facility] (DEFAULT) [address] [place] [address] 89587 Monocyte Man 8 % Normal 1-11 [facility] Comment on above: Order Comment: Order added by Kalpesh. Performed By: #### 1 [id number], 1612845115, 0256432, 2134162375, 1338463005, 1222461, 938105629 #### [facility] (DEFAULT) [address] [place] [address] 66150 React Lymph Man 10 % [facility] Comment on above: Order Comment: Order added by Kalpesh. Performed By: #### 1 [id number], 6030929615, 1501316, 0776677666, 1566872391, 4739083, 419637453 #### [facility] (DEFAULT) [address] [place] [address] 43103 Segs Man 37 % Low 50-70 [facility] Comment on above: Order Comment: Order added by Kalpesh. Performed By: #### 1 [id number], 0515010611, 7431785, 1987628675, 4732331617, 1883660, 145723773 #### [facility] (DEFAULT) [address] [place] [address] 69940 POCT Glucose Levelon 020 Glucose [Mass/Vol] 224 mg/dL High 74-118 [facility] Comment on above: Performed By: #### 1 [id number], 8290326621, 8520455, 9559880446, 5994245294, 1303000, 762814939 #### [facility] (DEFAULT) [address] [place] [address] 88463 Progress Note - Nurseon 01-09 Progress Note - Nurse Lab drawn for lactic acid, tube placed on ice and sent to lab. [Electronically Signed on: 01/31/2020 11:38 EDT] Nataly Camilo RN [Verified on: 01/31/2020 11:38 EDT] Nataly Camilo RN Normal [facility] Respiratory Panel 2.1 (BioFi re)on 01-31-2020 Adenovirus -BioFire Not Detected Normal Not Detected [facility] Comment on above: Performed By: #### 1 [id number], 5918349429, 4724023, 0812849511, 7759401340, 7875699, 228223918 #### [facility] (DEFAULT) [address] [place] [address] 81113 Bordetella parapertussis -BioFire Not Detected Normal Not Detected [facility] Comment on above: Performed By: #### 1 [id number], 0932950692, 0129196, 0597246317, 9564012246, 0134723, 151050849 #### [facility] (DEFAULT) [address] [place] [address] 84856 Bordetella pertussis -BioFire Not Detected Normal Not Detected [facility] Comment on above: Performed By: #### 1 [id number], 0311085124, 2588544, 5117405341, 3822132773, 6267540, 165845889 #### [facility] (DEFAULT) [address] [place] [address] 43425 Chlamydia pneumoniae -BioFire Not Detected Normal Not Detected [facility] Comment on above: Performed By: #### 1 [id number], 6706466198, 5574794, 5765755858, 3176309680, 5803139, 839042309 #### [facility] (DEFAULT) [address] [place] [address] 73543 Coronavirus 229E (Not COVID-19) -BioFire Not Detected Normal Not Detected [facility] Comment on above: Performed By: #### 1 [id number], 0416333748, 9696394, 6200565535, 4813273516, 3379340, 769491133 #### [facility] (DEFAULT) [address] [place] [address] 89982 Coronavirus HKU1 (Not COVID-19) -BioFire Not Detected Normal Not Detected [facility] Comment on above: Performed By: #### 1 [id number], 1812038433, , 8652364613, 4750537706, 9827085, 412792660 #### [facility] (DEFAULT) [address] [place] [address] 80044 Coronavirus NL63 (Not COVID-19) -BioFire Not Detected Normal Not Detected [facility] Comment on above: Performed By: #### 1 415581549, 8793430686, 4718665, 0237694809, 1085671057, 7142952, 253165225 #### [facility] (DEFAULT) [address] [place] [address] 62422 Coronavirus OC43 (Not COVID-19) -BioFire Not Detected Normal Not Detected [facility] Comment on above: Performed By: #### 1 [id number], 9287506370, 5846344, 0782092226, 4417602858, 0251011, 637155766 #### [facility] (DEFAULT) [address] [place] [address] 51741 Human Metapneumovirus -BioFire Not Detected Normal Not Detected [facility] Comment on above: Performed By: #### 1 [id number], 8833376306, 5173009, 2082801155, 4403150571, 3008329, 070177673 #### [facility] (DEFAULT) [address] [place] [address] Human Rhinovirus/Enterovi jay -BioFire Not Detected Normal Not Detected [facility] Comment on above: Performed By: #### 1 911656207, 3993941662, 4031233, 6264846105, 8947232820, 8191573, 199349577 #### [facility] (DEFAULT) [address] [place] [address] Influenza A (no subtype) -BioFire Not Detected Normal Not Detected [facility] Comment on above: Performed By: #### 1 [id number], 4904723718, 5944393, 5039999726, 9027289920, 6977391, 929511524 #### [facility] (DEFAULT) [address] [place] [address] Influenza A -BioFire Not Detected Normal Not Detected [facility] Comment on above: Performed By: #### 1 149262307, 0718118561, 3436228, 5226872112, 3276679541, 4500786, 759219892 #### [facility] (DEFAULT) [address] [place] [address] Influenza A H1 -BioFire Not Detected Normal Not Detected [facility] Comment on above: Performed By: #### 1 086842473, 6054183886, 0151811, 6393104190, 5506730812, 3068994, 490641036 #### [facility] (DEFAULT) [address] [place] [address] Influenza A H1-2009 -BioFire Not Detected Normal Not Detected [facility] Comment on above: Performed By: #### 1 [id number], 7263758497, 9902416, 3558927411, 0356397559, 2083173, 845186092 #### [facility] (DEFAULT) [address] [place] [address] Influenza A H3 -BioFire Not Detected Normal Not Detected [facility] Comment on above: Performed By: #### 1 099133925, 0751813746, 5835100, 8826422581, 5101523430, 6390893, 035368738 #### [facility] (DEFAULT) [address] [place] [address] Influenza B -BioFire Not Detected Normal Not Detected [facility] Comment on above: Performed By: #### 1 [id number], 1845708924, 5875101, 0218598504, 3333297940, 5330071, 838164544 #### [facility] (DEFAULT) [address] [place] [address] Mycoplasma pneumoniae -BioFire Not Detected Normal Not Detected [facility] Comment on above: Performed By: #### 1 261205703, 0490641059, 4611732, 0188979719, 9406883762, 1417864, 699508822 #### [facility] (DEFAULT) [address] [place] [address] Parainfluenza Virus 1 -BioFire Not Detected Normal Not Detected [facility] Comment on above: Performed By: #### 1 750526207, 5594808957, 4476548, 8022148530, 3018005255, 6181278, 270412000 #### [facility] (DEFAULT) [address] [place] [address] Parainfluenza Virus 2 -BioFire Not Detected Normal Not Detected [facility] Comment on above: Performed By: #### 1 [id number], 8752913953, 1447152, 7076019696, 0992742113, 2415522, 989881641 #### [facility] (DEFAULT) [address] [place] [address] 87600 Parainfluenza Virus 3 -BioFire Not Detected Normal Not Detected [facility] Comment on above: Performed By: #### 1 [id number], 6149387310, 4877043, 2597928957, 8001912525, 3207179, 748342942 #### [facility] (DEFAULT) [address] [place] [address] 14947 Parainfluenza Virus 4 -BioFire Not Detected Normal Not Detected [facility] Comment on above: Performed By: #### 1 091356825, 7799842086, 0365361, 6250925515, 1810883268, 6280380, 750259330 #### [facility] (DEFAULT) [address] [place] [address] 02678 Respiratory Syncytial Virus -BioFire Not Detected Normal Not Detected [facility] Comment on above: Performed By: #### 1 [id number], 6291228217, 9982824, 2857530030, 3425692702, 4125806, 315234262 #### [facility] (DEFAULT) [address] [place] [address] SARS-CoV-2 (COVID-19) -BioFire Detected Abnormal Not Detected [facility] Comment on above: Result Comment: Resu lts Called To YURI Wilson By And Read Back For Confirmation On 01/30/2020 22:53:32 EDT. Performed By: #### 1 [id number], 0146418130, 5213962, 8852926085, 8244300305, 6102265, 727282259 #### [facility] (DEFAULT) [address] [place] [address] 99157 Telemetry Stripson 0 Telemetry Strips [id number]#1.00O TGTIFF Normal [facility] Telemetry Strips [id number]#1.00OT GTIFF Normal [facility] Telemetry Strips [id number]#1.00OT GTIFF Normal [facility] TnI HSon 01-31-2020 Troponin I High Sensitivity 5 pg/mL Normal <=15 [facility] Comment on above: Result Comment: Male Baseline Delta 1Hr (Note pg/mL=ng/L) <20pg/mL 50-60% >20pg/mL 20% Female Baseline Delta 1Hr <15pg/mL 50-60% >15pg/mL 20% Other Baseline Delta 1Hr <18ng/mL 50-60% >18ng/mL 20% ([employer] Guidelines February 2018) Performed By: #### 1 [id number], 2329234844, 4839927, 6265224113, 5246094756, 7899257, 336471533 #### [facility] (DEFAULT) [address] [place] [address] 10485 Troponin I High Sensitivity 5 pg/mL Normal <=15 [facility] Comment on above: Result Comment: Male Baseline Delta 1Hr (Note pg/mL=ng/L) <20pg/mL 50-60% >20pg/mL 20% Female Baseline Delta 1Hr <15pg/mL 50-60% >15pg/mL 20% Other Baseline Delta 1Hr <18ng/mL 50-60% >18ng/mL 20% ([employer] Guidelines February 2018) Performed By: #### 1 [id number], 3167049183, 5261938, 7911758562, 9569661174, 2270326, 472192374 #### [facility] (DEFAULT) [address] [place] [address] 39589 Troponin I High Sensitivity 5 pg/mL Normal <=15 [facility] Comment on above: Result Comment: Male Baseline Delta 1Hr (Note pg/mL=ng/L) <20pg/mL 50-60% >20pg/mL 20% Female Baseline Delta 1Hr <15pg/mL 50-60% >15pg/mL 20% Other Baseline Delta 1Hr <18ng/mL 50-60% >18ng/mL 20% ([employer] Guidelines February 2018) Performed By: #### 1 [id number], 1509485052, 7850965, 0426017693, 7533823630, 9153200, 230970567 #### [facility] (DEFAULT) [address] [place] [address] 42434 XR Chest 1 View Frontalon XR Chest 1 View Frontal EXAM: XR Chest 1 View Frontal REASON FOR EXAM: Female, 85 years, Chest Pain. TECHNIQUE: A single AP view of the chest is performed. COMPARISON: 01/20/2020. FINDINGS: The lungs are expanded and clear. Normal pleura. There is borderline cardiomegaly. Normal mediastinum and esperanza. Normal visualized pulmonary arteries. Normal visualized aortic arch and descending thoracic aorta. Degenerative changes are seen within the spine. Normal visualized ribs, clavicles, and shoulders. There is no demonstrated abnormality of the visualized soft tissue structures of the upper abdomen. IMPRESSION: No acute process in lungs. Final Dictated by: Geoffrey Mathias Dictated DT/TM: 01/30/20 11:32 Signed (Electronic Signature): Geoffrey Mathias 01/30/20 11:35 p Technologist: JOSEF Costa [facility] ED Note - Physicianon 2019 ED Note - Physician Patient: MICHEAL DAVIS Age: 85 years Sex: FEMALE : 1935 Associated Diagnoses: Cough; Weakness; Hyperglycemia Author: TOSHIA APPIAH Basic Information Time seen: Date & time 01/30/2020 21:21:00. History source: Patient. Arrival mode: Private vehicle, walking. History of Present Illness Patient is an 85-year-old female presenting to the emergency department complaint of cough and feeling rundown. Patient indicates over the last for 5 days she has had a nonproductive cough. She states she is feeling rundown and intermittently feels like her legs are rubbery. Patient states she has had mild diarrhea but indicates this is common for her and nothing abnormal. Patient denies any abdominal pains, chest pains, shortness of breath. Patient states that she has had temperatures of high 99 range. Review of Systems Constitutional symptoms: No fever, Skin symptoms: No rash, Eye symptoms: Vision unchanged. ENMT symptoms: No sore throat, no nasal congestion. Respiratory symptoms: Cough, No shortness of breath, Cardiovascular symptoms: No chest pain, no tachycardia. Gastrointestinal symptoms: No abdominal pain, no nausea, no vomiting. Genitourinary symptoms: No dysuria, Musculoskeletal symptoms: No back pain, no Muscle pain. Neurologic symptoms: No altered level of consciousness, Health Status Allergies: No active allergies have been recorded.. Past Medical/ Family/ Social History Medical history: No active or resolved past medical history items have been selected or recorded.. Family history: No family history items have been selected or recorded.. Social history: Social & Psychosocial Habits No Data Available . Physical Examination CONST: -Well-developed well-nourished. -Acute distress: No -Vitals: reviewed. SKIN: -Gross abnormalities: No EYES: -EOM intact, MARU: -Sclera conjunctiva: Unremarkable. ENT: - pharynx pink and dry NECK: -Supple ([id number]): non-tender. CARD: -Rate and rhythm: Regular -Edema: No -Calf pain: No RESP: -Respiratory effort and chest excursion with respirations: Normal -Breath sounds equal bilaterally: Clear -Wheezes: No -Rales: No BACK: -Signs of pain with movement: No ABD: -Distended: No -Deep palpation: Non-tender, soft, no guarding or rebound tenderness EXT: Gross appearance and use of all four extremities: Unremarkable NEURO: -Patient: alert -Gross CN or Focal Neuro deficits: No -Oriented to: person, place and time. -Appearance and judgment: appropriate. Medical Decision Making 85-year-old female presenting to the emergency department for cough, feeling rundown, concerned about possible COVID. Patient denies any shortness of breath. Discussed blood work she was in agreement. Patient's blood work shows elevated lactic acid of 25, elevated creatinine of 1.36, elevated glucose of 353, sodium of 133, corrected with glucose is 137. White blood cell count is 7 within normal ranges. Patient does have low low segs and high bands. Patient's EKG shows ST depressions in V3 through V6. This was discussed reviewed with supervising physician. Patient was reviewed with supervising physician, he recommended IV azithromycin and Rocephin. I recommended admission for observation, repeat troponin, reevaluation in the morning after IV fluids, IV antibiotics. Contacted hospitalist spoke with Dr. Lu was in agreement with admission of this patient, patient will be given IV fluids for her creatinine, IV antibiotics at the request of supervising physician, have repeat troponin and EKG secondary to EKG changes, respiratory work with this patient on albuterol inhaler. Patient was in agreement. Patient will be admitted for observation. Impression and Plan Diagnosis Cough ([id number] R05, Discharge, Medical) Weakness (QZW13-WC R53.1, Discharge, Medical) Hyperglycemia (ZWE68-ZD R73.9, Discharge, Medical) Plan Condition: Stable. Disposition: Admit time 01/30/2020 23:17:00, Place in Observation Unit. Prescriptions: Launch prescriptions Laboratory: High Sensitivity Troponin I (Order): Blood, Stat collect, 01/30/2020 21:33 EDT, Lab Collect Lactic Acid (Order): Blood, Stat collect, 01/30/2020 21:33 EDT, Lab Collect Magnesium Level (Order): Blood, Stat collect, 01/30/2020 21:33 EDT, Lab Collect Comprehensive Metabolic Panel Standard (Order): Blood, Stat collect, 01/30/2020 21:33 EDT, Lab Collect CBC w/ Auto Diff (Order): Blood, Stat collect, 01/30/2020 21: EDT, Lab Collect Respiratory Panel 2.1 w COVID-19 (BioFire) (Order): Nasopharyngeal Swab, 01/30/2020 21:33 EDT, Stat collect, Nurse collect Patient Care: Pulse Oximetry Continuous (Order): 01/30/2020 21:33 EDT, Once, Titrate FIO2 and Delivery Method to Maintain SPO2 > 95%, 01/30/2020 21:33 EDT Cardiac Monitoring (Order): 01/30/2020 21:33 EDT Pharmacy: Sodium Chloride 0.9% intravenous solution 500 mL (Order): 20 mL/hr, IV Normal Saline Flush (Order): 30 mL, IV Push, Once Radiology: XR Chest 1 View Frontal (Order): 01/30/2020 21:33 EDT Stat, Chest Pain, Allow Modification Per Radiologist, Transport Mode: Portable Cardiovascular: ECG 12 Lead (Order): 01/30/2020 21:33 EDT, Stat, Weakness, Launch prescriptions Pharmacy: Tylenol (Order): 1,000 mg, PO, Once , Launch prescriptions Pharmacy: azithromycin (Order): 500 mg, IV Piggyback, Once , Launch prescriptions Pharmacy: NovoLOG (Order): 8 unit(s), SubQ, Once . Counseled: Patient, Regarding diagnosis, Regarding diagnostic results, Regarding treatment plan, Patient indicated understanding of instructions. Addendum Teaching-Supervisory Addendum-Brief I participated in the following activities of this patients care: The patient has been evaluated, the lungs are clear, heart rate and rhythm is regular no murmur, she is not dyspneic, and she denies any fever, but she has felt just a little bit weak, with her cough. She does not have a history of COPD, or cardiac disease, she does have a history of diabetes. She is very active and takes care of herself normally. She is pleasant well spoken well disposed, she states she is a little bit hungry, she will be admitted on an observation basis, because she is feeling a little weak. Juan Luis MEANS< ER PHYSICIAN< Yvonne Hu//2342 hours. [Electronically Signed on: 01/30/2020 23:18 EDT] TOSHIA APPIAH [Electronically Signed on: 01/30/2020 23:42 EDT] Angelo Means DO [Verified on: 01/30/2020 23:18 EDT] TOSHIA APPIAH [facility] ED Note-Nursingon 01-30-2020 ED Note-Nursing patient arrived via private vehicle. patient walked to room 3 without assistance. patient states she has had weakness, cough, and a fever for 4-5 days. patient states last week she was in [facility] for chest pain , had a cxray and ct scan that were normal. patient states her cough is productive and clear . denies any sob or cp at this time. patient wearing N95 mask. isolation precautions used. in no sign of distress. call light within reach. [facility] Extra Blueon 01-30-2020 Tube Collected Yes [facility] Comment on above: Performed By: #### 1 [id number], [id number], [id number], [id number] #### [facility] (DEFAULT) [address] [place] [address] Coding Summary.on 06-21-2019 Coding Summary. CODING DATE: FINAL [facility] STATUS: Home (Routine DC) PAYOR: Medicare APC DESCRIPTION 5312 Level 2 Lower GI Procedures ADMIT DX: REASON FOR VISIT DX: Z86.010 Personal history of colonic polyps FINAL DX: PRINCIPAL: Z12.11 Encounter for screening for malignant neoplasm of colon SECONDARY: K57.30 Diverticulosis of large intestine without perforation or abscess without bleeding K64.8 Other hemorrhoids K64.4 Residual hemorrhoidal skin tags Z86.010 Personal history of colonic polyps I10 Essential (primary) hypertension E11.40 Type 2 diabetes mellitus with diabetic neuropathy, unspecified Z85.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 Z79.82 FDC (current) use of aspirin PYMT PROC APC STAT DESCRIPTION DOCTOR NAME DATE 11560 5312 T Colonoscopy, flexible; Nicole NETTLES MD 06/14/2019 with removal of tumor(s), polyp(s), or other lesion(s) by snare technique PT Colorectal cancer screening test; converted to diagnostic test or other procedure 34321 5312 T Colonoscopy, flexible; Nicole NETTLES MD 06/14/2019 with directed submucosal injection(s), any substance PT Colorectal cancer screening test; converted to diagnostic test or other procedure 72221 Anesthesia for lower Cervantes Vikram Alvarado DO 06/14/2019 intestinal endoscopic procedures, endoscope introduced distal to duodenum; not otherwise specified NOTE: The code number assigned matches the documented diagnosis and / or procedure in the patient's chart. However, the narrative phrase printed from the coding software may appear abbreviated, or result in slightly different terminology. Revised Coded By: Sheba Langford Revised Date Saved: 06/21/2019 03:47 pm Normal [facility] Coding Summary.on 06-18-2019 Coding Summary. CODING DATE: FINAL [facility] STATUS: Home (Routine DC) PAYOR: Medicare APC DESCRIPTION 5312 Level 2 Lower GI Procedures ADMIT DX: REASON FOR VISIT DX: Z86.010 Personal history of colonic polyps FINAL DX: PRINCIPAL: Z12.11 Encounter for screening for malignant neoplasm of colon SECONDARY: D12.8 Benign neoplasm of rectum K57.30 Diverticulosis of large intestine without perforation or abscess without bleeding K64.8 Other hemorrhoids K64.4 Residual hemorrhoidal skin tags Z86.010 Personal history of colonic polyps E11.40 Type 2 diabetes mellitus with diabetic neuropathy, unspecified I10 Essential (primary) hypertension Z85.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 Z79.82 FDC (current) use of aspirin PYMT PROC APC STAT DESCRIPTION DOCTOR NAME DATE 26229 12 T Colonoscopy, flexible; Nicole NETTLES MD 06/14/2019 with removal of tumor(s), polyp(s), or other lesion(s) by snare technique PT Colorectal cancer screening test; converted to diagnostic test or other procedure 92026 5312 T Colonoscopy, flexible; Nicole NETTLES MD 06/14/2019 with directed submucosal injection(s), any substance PT Colorectal cancer screening test; converted to diagnostic test or other procedure 62142 Anesthesia for lower Cervantes Vikram Alvarado DO 06/14/2019 intestinal endoscopic procedures, endoscope introduced distal to duodenum; not otherwise specified NOTE: The code number assigned matches the documented diagnosis and / or procedure in the patient's chart. However, the narrative phrase printed from the coding software may appear abbreviated, or result in slightly different terminology. Coded By: hSeba Langford Date Saved: 06/18/2019 12:52 pm Normal [facility] Coding Summary. CODING DATE: 019 FINAL [facility] STATUS: Home (Routine DC) PAYOR: Medicare APC DESCRIPTION 5312 Level 2 Lower GI Procedures ADMIT DX: REASON FOR VISIT DX: Z86.010 Personal history of colonic polyps FINAL DX: PRINCIPAL: Z12.11 Encounter for screening for malignant neoplasm of colon SECONDARY: D12.8 Benign neoplasm of rectum K57.30 Diverticulosis of large intestine without perforation or abscess without bleeding K64.8 Other hemorrhoids K64.4 Residual hemorrhoidal skin tags Z86.010 Personal history of colonic polyps E11.40 Type 2 diabetes mellitus with diabetic neuropathy, unspecified I10 Essential (primary) hypertension Z85.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 Z79.82 FDC (current) use of aspirin PYMT PROC APC STAT DESCRIPTION DOCTOR NAME DATE 03630 5312 T Colonoscopy, flexible; Nicole NETTLES MD 06/14/2019 with removal of tumor(s), polyp(s), or other lesion(s) by snare technique PT Colorectal cancer screening test; converted to diagnostic test or other procedure 09844 5312 T Colonoscopy, flexible; Nicole NETTLES MD 06/14/2019 with directed submucosal injection(s), any substance PT Colorectal cancer screening test; converted to diagnostic test or other procedure NOTE: The code number assigned matches the documented diagnosis and / or procedure in the patient's chart. However, the narrative phrase printed from the coding software may appear abbreviated, or result in slightly different terminology. Coded By: Sheba Langford Date Saved: 06/18/2019 12:51 pm [facility] Main OR Intraoperative Recor don 06-15-2019 Main OR Intraoperative Record IntraOp Document Type FT Summary Primary Physician: Nicole NETTLES MD Finalized Date/Time: 06/15/19 09:45:35 Pt. Name: LUIS FELIPE DAVIS/Sex: 1935 Female Med Rec #: [id number] Physician: Nicole NETTLES MD Financial #: [id number] Pt. Type: P Room/Bed: / Admit/Disch: - 06/15/19 23:59:59 Institution: Case Times FT Entry 1 Patient Times In Room 06/14/19 12:05:00 Out Room 06/14/19 12:24:00 Procedure Times Start 06/14/19 12:09:00 Stop 06/14/19 12:20:00 Anesthesia Times Start 06/14/19 12:05:00 Stop 06/14/19 12:24:00 Time at [place] 06/14/19 12:12:00 Last Modified By: Fátima Moyer CST 06/14/19 12:24:07 General Comments: 06/15/19 Chart opened to review and send charges Pasquale Moyer CST Case Attendance FT Entry 1 Entry 2 Entry 3 Case Attendee Billy Alvarado DO, Vikram NETTLES MD, Nicole Locke RN, Gina Reyna Role Performed Anesthesiologist of Surgeon - Primary Physician Relations Representative - Primary Record Time In 06/14/19 12:05:00 06/14/19 12:05:00 06/14/19 12:05:00 Time Out 06/14/19 12:24:00 06/14/19 12:24:00 06/14/19 12:24:00 Procedure COLONOSCOPY(.) COLONOSCOPY(.) COLONOSCOPY(.) Comments Last Modified By: Cornelia YATES, Gina Locke RN, Gina Hunt RN 06/14/19 12:24:26 06/14/19 12:24:26 06/14/19 12:24:26 Entry 4 Entry 5 Case Attendee Vivek PASCUAL, Mili Villarreal TAX SERVICES PROFESSIONAL/SA, Camryn Role Performed Scrub - Primary Scrub - Other Time In 06/14/19 12:05:00 06/14/19 12:14:00 Time Out 06/14/19 12:24:00 06/14/19 12:24:00 Procedure COLONOSCOPY(.) COLONOSCOPY(.) Comments Help in room Last Modified By: Cornelia YATES, Gina Locke RN, Gina Reyna 06/14/19 12:24:26 06/14/19 12:24:26 Perioperative Protocols FT Pre-Care Text: Implements protective measures prior to operative or invasive procedure, confirms identity before the operative or invasive procedure, verifies operative procedure, surgical site, and laterality Entry 1 Procedure(s) COLONOSCOPY(.) Patient Identity Birthday, ID Band Verified (select at Check, Patient least 2): Participation Consents / H and P Anesthesia Consent, Operative Site N/A Verified HandP, Surgery/Procedure Marking Verified Consent Surgical Site No Laterality Verified n/a Verified Procedure Verified Yes Correct Patient Yes Position Verified Availability Equipment, Medication Prep Dry n/a Verified (If Applicable) PreOp Antibiotic No Time Out Vikram Cervantes Jr, DO, Given Participants Nicole NETTLES MD, Schaffer RN, Vivek Estrada CST, Mili Time Out Complete 06/14/19 12:08:00 Outcomes Met? Yes Last Modified By: Gina Locke RN 06/14/19 12:09:23 Post-Care Text: The patient is free from signs and symptoms of injury caused by extraneous objects Allergy Information FT Pre-Care Text: Verifies allergies Entry 1 Allergies Reviewed? Yes Allergies Reviewed Self/Patient With Outcomes Met? Yes Last Modified By: Gina Locke RN 06/14/19 09:57:48 Post-Care Text: The patient received appropriate medication(s) safely administered during the perioperative period Surgical Procedures FT Entry 1 Procedure Description Procedure COLONOSCOPY Modifiers . Surgeon Description Colonoscopy with rectal polypectomy lifted(eleview), hot snare and hemoclip x1. Primary Procedure Yes Primary Surgeon Nicole NETTLES MD Start 06/14/19 12:09:00 Stop 06/14/19 12:20:00 Anesthesia Type General Surgical Service Gastroenterology Wound Class 2 - Clean-Contaminated Last Modified By: Gina Locke RN 06/14/19 12:24:02 General Case Data FT Pre-Care Text: Classifies surgical wound, implements aseptic technique, initiates traffic control Entry 1 Case Information OR ENDO 1 FT Case Level Level 2 Wound Class 2 - Clean-Contaminated Specialty Gastroenterology ASA Class 3 Preop Diagnosis PERSONAL HX OF COLON Postop Same As Preop No POLYPS Postop Diagnosis Inflammed external Outcomes Met? Yes hemorrhoids, severe diverticulosis, rectal polyp and internal hemorrhoids Last Modified By: Gina Locke RN 06/14/19 12:20:16 Post-Care Text: The patient is free from signs and symptoms of infection Skin Assessment (Pre Procedure) FT Pre-Care Text: Implements protective measures to prevent skin/ tissue injury due to thermal or mechanical sources Evaluates for signs and symptoms of physical injury to skin and tissue Entry 1 Skin Integrity Intact, [place], Warm, and Skin Abnormality No Dry Outcomes Met? Yes Last Modified By: Gina Locke RN 06/14/19 09:58:12 Post-Care Text: The patient is free from signs and symptoms of injury caused by extraneous objects Patient Positioning FT Pre-Care Text: Identifies physical alterations that require additional precautions for procedure-specific positioning, verifies presence of prosthetics or corrective devices, positions the patient, evaluates the patient for signs and symptoms of injury as a result of positioning Entry 1 Procedure COLONOSCOPY(.) Body Position Lateral, right side up Feet Uncrossed? Yes Left Arm Position Resting at Side Right Arm Position Resting at Side Left Leg Position Extended Right Leg Position Extended Positioning Device Pillow Under Head Large, Safety Strap Press Points Checked Yes By Gina Locke RN, Marsh Jr DOVikram Outcomes Met? Yes Last Modified By: Gina Locke RN 06/14/19 09:58:20 Post-Care Text: The patient is free from signs and symptoms of injury related to positioning Patient Care Devices FT Pre-Care Text: Implements protective measures to prevent skin/ tissue injury due to thermal or mechanical sources Entry 1 Entry 2 Entry 3 Equipment Type ENDOSCOPY VIDEO MONITOR CHARGE SURGERY CAUTERY ERBE UNIT [F] SYSTEM[F] [F] Equipment Number [id number] Equipment Setting Outcomes Met? Yes Yes Yes Last Modified By: Gina Locke RN, RN, Kara N Schaffer RN, Kara N 06/14/19 09:58:34 06/14/19 09:58:34 06/14/19 12:21:45 Post-Care Text: The patient is free from signs and symptoms of injury caused by extraneous objects Transport To OR FT Pre-Care Text: Transports according to individual needs. Evaluates for signs and symptoms of skin and tissue injury as a result of transfer or transport Entry 1 Via Cart By Gina Locke RN Safety Precautions Safety Strap, Side Outcomes Met? Yes Rails Up Last Modified By: Gina Locke RN 06/14/19 09:58:40 Post-Care Text: The patient is free from signs and symptoms of injury related to transfer/transport Cautery FT Pre-Care Text: Implements protective measures to prevent injury due to electrical sources, and evaluates for signs and symptoms of electrical injury Entry 1 ESU Identification ESU Settings ESU Grounding Pad Site Right Thigh Hair Removal Pad No Site Pre Pad Site Clear and Intact Post Pad Site Clear and Intact Condition Condition Grounding Pad Rice TAX SERVICES PROFESSIONAL, Mili Placed By Outcomes Met? Yes Last Modified By: Gina Locke RN 06/14/19 12:21:31 Post-Care Text: The patient if free from signs and symptoms of electrical injury General Comments: ERBE setting placed to Snare/hot biopsy/KS,RN Departure From OR FT Pre-Care Text: Transports according to individual needs. Evaluates for signs and symptoms of skin and tissue injury as a result of transfer or transport. Entry 1 Via Cart Safety Precautions Safety Strap, Side Rails Up PostOp Destination PACU Transported By Gina Locke RN Patient Status Stable Skin. Condition Intact, [place], Warm, and Dry Airway Maintenance Oxygen in Use? No Airway Device N/A Outcomes Met? Yes Last Modified By: Gina Locke RN 06/14/19 09:59:04 Post-Care Text: The patient is free from signs and symptoms of injury related to transfer/transport General Comments: Report given to PACU,RN/KS,tie worker Administration FT Pre-Care Text: Verifies allergies, administers prescribed medications and solutions, administers prescribed antibiotic therapy and immunizing agents as ordered, evaluates response to medications Administers prescribed medications and solutions Entry 1 Expiration Date Yes Outcomes Met? Yes Verified Last Modified By: Gina Locke RN 06/14/19 09:59:12 Post-Care Text: The patient received appropriate medication(s) safely administered during the perioperative period For [facility] please see scanned medication reconcilliation form for medications used at the field during the procedure. Cultures and Specimens FT Pre-Care Text: Manages specimen handling and disposition Manages culture specimen collection Entry 1 Cultures Ordered n/a Specimens Ordered Yes Specimen Disposition Designated OR Area Frozen Section Times Outcomes Met? Yes Last Modified By: Gina Locke RN 06/14/19 12:33:43 Post-Care Text: The patient is free from signs and symptoms of injury caused by extraneous objects The patient is free from signs and symptoms of infection Case Comments Finalized By: Fátima Moyer CST Document Signatures Signed By: Gina Locke RN 06/14/19 12:33 Gina Locke RN 06/14/19 12:24 Fátima Moyer CST 06/15/19 09:45 Normal [facility] Progress Note-Physicianon Progress Note-Physician Patient: LUIS FELIPE DAVIS Age: 84 years Sex: Female : 1935 Associated Diagnoses: None Author: Vikram Cervantes Jr, DO Preoperative Information Anesthesia Preop Information NPO 8 HOURS EXCEPT GI PREP AT LEAST 4 HOURS PRIOR TO PROCEDURE Anesthesia history: Patient history: No prior anesthesia problems. Re-evaluation prior to induction: Initial evaluation reviewed: No significant change. Anesthesia results Review of Systems Cardiovascular: Negative. Respiratory: Negative. Health Status Allergies: Allergic Reactions (Selected) Severity Not Documented Allergy to penicillin- No reactions were documented. Sulfamethoxazole- No reactions were documented. Tetanus- No reactions were documented. Current medications: (Selected) Inpatient Medications Ordered Sodium Chloride 0.9% IV Loly 1000 mL 1,000 mL: 1,000 mL, IV, 20 mL/hr, Routine, Start date 06/14/19 10:40:00 EST, 50 hour(s), Total volume (mL): 1,000 Prescriptions Prescribed NuLYTELY with Flavor Packs oral powder for reconstitution: 240 mL, Oral, q10min, 1 EA, Refill(s) 0, [facility] 1628 Documented Medications Documented Lyrica: Oral, Refills(s) 0, Pain Multivitamins and Minerals: Oral, Daily, Refill(s) 0, Prophylaxis Vitamin D3: 2,000 International_Unit, Oral, Daily, Refills(s) 0, Prophylaxis amlodipine: 10 mg, Oral, BID, Refills(s) 0, High blood pressure aspirin: 81 mg, Oral, Daily, Refills(s) 0, Prophylaxis carvedilol: 12.5 mg, Oral, BID, Refills(s) 0, High blood pressure glimepiride: Oral, Daily, Refills(s) 0, High blood sugar hydrochlorothiazide: 25 mg, Oral, Daily, Refills(s) 0, High blood pressure metformin: 500 mg, Oral, Daily, Refills(s) 0, High blood sugar omeprazole: 20 mg, Oral, Daily, Refills(s) 0, Control of stomach acid sertraline: 50 mg, Oral, Daily, Refills(s) 0, Depression, Home Medications (12) Active amlodipine 10 mg, Oral, BID aspirin 81 mg, Oral, Daily carvedilol 12.5 mg, Oral, BID glimepiride , Oral, Daily hydrochlorothiazide 25 mg, Oral, Daily Lyrica , Oral metformin 500 mg, Oral, Daily Multivitamins and Minerals , Oral, Daily NuLYTELY with Flavor Packs oral powder for reconstitution 240 mL, Oral, q10min omeprazole 20 mg, Oral, Daily sertraline 50 mg, Oral, Daily Vitamin D3 2,000 International_Unit, Oral, Daily Problem list: All Problems Resolved: Diabetes mellitus / SNOMED CT 643868736 Resolved: Hypertension / SNOMED CT 37110749 Resolved: Neuropathy / SNOMED CT 2719149324 Resolved: Uterine cancer / SNOMED CT 0086943918 Histories Past Medical History: Resolved Uterine cancer (2596851181): Resolved. Hypertension (57158315): Resolved. Diabetes mellitus (699222820): Resolved. Neuropathy (3339389640): Resolved. Social History Social & Psychosocial Habits Alcohol 05/24/2019 Risk Assessment: Denies Alcohol Use Substance Abuse 05/24/2019 Risk Assessment: Denies Substance Abuse Tobacco 05/24/2019 Risk Assessment: Denies Tobacco Use 05/24/2019 Tobacco Use: Never (less than 100 in l Smokeless tobacco use: Never. Physical Examination Airway: Mallampati classification: II (soft palate, fauces, uvula visible). Respiratory: Lungs are clear to auscultation. Cardiovascular: Regular rhythm. Neurologic: Alert, Oriented. Plan [place] [employer] Anesthesiologists (ASA) physical status classification: Class III. Anesthetic Preoperative Plan Anesthesia: General. . Anesthetic plan, risks, benefits, and alternatives discussed with the patient and/or family. Communication: face to face with (patient 5 minutes, Patient educated on smoking cesstation). Normal [facility] Comment on above: Result Comment: Elec tronically Signed By: Vikram Cervantes Jr, DO\.br\Date and Time Signed: 06/15/19 16:39 EST Inpatient Patient Summaryon 06-14-2019 Inpatient Patient Summary [facility] Clinical Discharge Instructions PERSON INFORMATION Name: LUIS FELIPE DAVIS PHYSICIANS Admitting Physician: Nicole NETTLES MD Attending Physician: Nicole NETTLES MD PCP: LAZARO BERGMAN DO Discharge Diagnosis: Rectal polyp Comment: PATIENT EDUCATION INFORMATION Instructions: Colon Polyps; Diverticulosis; Colonoscopy, Care After Surgery Kourtney (CUSTOM) Medication Leaflets: Follow up: With: Address: When: [facility] [address] [place] [address] Within 2 weeks Type Location Start [facility] Follow Up [facility] 06/28/2019 9:30 AM 06/28/2019 9:45 AM Confirmed MEDICATION LIST Comment: Normal [facility] Main OR PACU I Recordon Main OR PACU I Record PACU Phase I Document Type FT Summary Primary Physician: Nicole NETTLES MD Finalized Date/Time: 06/14/19 13:07:52 Pt. Name: LUIS FELIPE DAVIS/Sex: 1935 Female Med Rec #: [id number] Physician: Nicole NETTLES MD Financial #: [id number] Pt. Type: P Room/Bed: / Admit/Disch: - Institution: Case Times PACU I FT Pre-Care Text: Identifies barriers to communication and implements measures to provide psychological support Develops individualized plan of care, and ensures continuity of care Maintains patient's dignity and privacy, and maintains patient confidentiality Identifies and reports philosophical, cultural, and spiritual beliefs and values Identifies individual values and wishes concerning care Implements aseptic technique, and administers prescribed antibiotic therapy and immunizing agents as ordered Evaluates postoperative tissue perfusion Implements thermoregulation measures, and monitors body temperature Evaluates postoperative respiratory status Evaluates postoperative cardiac status Evaluates postoperative neurological status Assesses pain control, collaborated in initiating patient-controlled analgesia and implements alternative methods of pain control Verifies allergies, administers prescribed medications and solutions, evaluates response to medications Entry 1 In PACU I 06/14/19 12:25:00 Discharge from PACU 06/14/19 12:55:00 I Outcomes Met? Yes Last Modified By: Ruthie Boothe RN 06/14/19 13:07:36 Post-Care Text: The patient demonstrates knowledge of the expected response to the operative or invasive procedure The patient's care is consistent with the individualized perioperative plan of care The patient's right to privacy is maintained The patient's value system, lifestyle, ethnicity, and culture are considered, respected, and incorporated into the perioperative plan of care The patient participates in decisions affecting his or her perioperative plan of care The patient is free from signs and symptoms of infection The patient has wound/tissue perfusion consistent with or improved from baseline levels established preoperatively The patient is at or returning to normothermia at the conclusion of the immediate postoperative period The patient's respiratory function is consistent with or improved from baseline levels established preoperatively The patient's cardiovascular status is consistent with or improved from baseline levels established preoperatively The patient's cardiovascular status is consistent with or improved from baseline levels established preoperatively The patient demonstrates and/or reports adequate pain control throughout the perioperative period The patient received appropriate medication(s), safely administered during the perioperative period Acuity Level PACU I FT Entry 1 Start Time 06/14/19 12:25:00 Stop Time 06/14/19 12:55:00 Acuity Level Acuity Level I Last Modified By: Ruthie Boothe RN 06/14/19 13:07:47 Finalized By: Ruthie Boothe RN Document Signatures Signed By: Ruthie Boothe RN 06/14/19 13:07 Normal [facility] Main OR Preoperative Recordo n 06-14-2019 Main OR Preoperative Record Holding Area Document Type FT Summary Primary Physician: Nicole NETTLES MD Finalized Date/Time: 06/14/19 11:02:14 Pt. Name: LUIS FELIPE DAVIS Jasson Olivas/Sex: 1935 Female Med Rec #: [id number] Physician: Nicole NETTLES MD Financial #: [id number] Pt. Type: P Room/Bed: / Admit/Disch: - Institution: Case Times Holding FT Pre-Care Text: Verifies consent for planned procedure, identifies individual values and wishes concerning care, includes family members in perioperative teaching Secures patient's records' belongings, and valuables, maintains patient's dignity and privacy, and maintains patient confidentiality Entry 1 In Holding 06/14/19 10:40:00 Outcomes Met? Yes Last Modified By: Cherelle Lozano RN 06/14/19 10:49:58 Post-Care Text: The patient participates in decisions affecting his or her perioperative plan of care The patient's right to privacy is maintained Surgery Checklist FT Entry 1 Patient Birthday, ID Band Procedure History and Physical, Identification: Check, Patient Verification: Surgical Consent, With Participation Patient NPO after Midnight: Yes Date/Time: 06/14/19 00:00:00 Personal Items: Cataract Lens Implant, Personal Items necklace, earrings, Jewelry Comment: watch, bilat. knees and right shoulder metal Limitations: none Complaints of Pain: No Pain Comment: denies Operative Site n/a Marking: Availability Equipment Verified: Does Patient Smoke No Patient states Yes Comment - Adult Friend postop adult Supervision supervision available Case Cancelled in No Holding Area see comments below for reason Last Modified By: Cherelle Lozano RN 06/14/19 10:54:51 General Comments: Pt. states she drank whole gallon of golytely last night and was NPO after Midnight. Pt. states she has been having clear yellow results. /aW RN Finalized By: Cherelle Lozano RN Document Signatures Signed By: Cherelle Lozano RN 06/14/19 10:55 Blake YATES, Cherelle 06/14/19 10:54 Cherelle Lozano RN 06/14/19 10:55 Blake YATES, Cherelle 06/14/19 11:02 Normal [facility] Patient Education - Texton 1 08-15-2018 Patient Education - Text Colonoscopy Care After Surgery Please read the instructions outlined below and refer to this sheet in the next few weeks. These discharge instructions provide you with general information on caring for yourself after you leave the hospital. Your doctor may also give you specific instructions. While your treatment has been planned according to the most current medical practices available, unavoidable complications occasionally occur. If you have any problems or questions after discharge, please call your doctor. ACTIVITY You may resume your regular activity, but move at a slower pace for the next 24 hours. Take frequent rest periods for the next 24 hours. Walking will help get rid of the air and reduce the bloated feeling in your abdomen (belly). No driving for 24 hours (because of the anesthesia (medicine) used during the test). You may shower. Do not sign any important legal documents or operate any machinery for 24 hours (because of the anesthesia used during the test). NUTRITION Drink plenty of fluids. You may resume your normal diet as instructed by your doctor. Begin with a light meal and progress to your normal diet. Heavy or fried foods are harder to digest and may make you feel nauseated (sick to your stomach). Avoid alcoholic beverages for 24 hours or as instructed. MEDICATIONS You may resume your normal medications unless your doctor tells you otherwise. WHAT YOU CAN EXPECT TODAY Some feelings of bloating in the abdomen. Passage of more gas than usual. Spotting of blood in your stool or on the toilet paper. FOLLOW-UP Your doctor will discuss the results of your test with you. SEEK IMMEDIATE MEDICAL ATTENTION IF: There is more than a spotting of blood in your stool. There is abdominal distention (your abdomen is swollen). There is vomiting. You have a temperature over 101.5 F. There is abdominal pain or discomfort that is severe or gets worse throughout the day. Family Medicine Colon Polyps Polyps are lumps of extra tissue growing inside the body. Polyps can grow in the large intestine (colon). Most colon polyps are noncancerous (benign). However, some colon polyps can become cancerous over time. Polyps that are larger than a pea may be harmful. To be safe, caregivers remove and test all polyps. CAUSES Polyps form when mutations in the genes cause your cells to grow and divide even though no more tissue is needed. RISK FACTORS There are a number of risk factors that can increase your chances of getting colon polyps. They include: ? Being older than 50 years. ? Family history of colon polyps or colon cancer. ? Long-term colon diseases, such as colitis or Crohn disease. ? Being overweight. ? Smoking. ? Being inactive. ? Drinking too much alcohol. SYMPTOMS Most small polyps do not cause symptoms. If symptoms are present, they may include: ? Blood in the stool. The stool may look dark red or black. ? Constipation or diarrhea that lasts longer than 1 week. DIAGNOSIS People often do not know they have polyps until their caregiver finds them during a regular checkup. Your caregiver can use 4 tests to check for polyps: ? Digital rectal exam. The caregiver wears gloves and feels inside the rectum. This test would find polyps only in the rectum. ? Barium enema. The caregiver puts a liquid called barium into your rectum before taking X-rays of your colon. Barium makes your colon look white. Polyps are dark, so they are easy to see in the X-ray pictures. ? Sigmoidoscopy. A thin, flexible tube (sigmoidoscope) is placed into your rectum. The sigmoidoscope has a light and tiny camera in it. The caregiver uses the sigmoidoscope to look at the last third of your colon. ? Colonoscopy. This test is like sigmoidoscopy, but the caregiver looks at the entire colon. This is the most common method for finding and removing polyps. TREATMENT Any polyps will be removed during a sigmoidoscopy or colonoscopy. The polyps are then tested for cancer. PREVENTION To help lower your risk of getting more colon polyps: ? Eat plenty of fruits and vegetables. Avoid eating fatty foods. ? Do not smoke. ? Avoid drinking alcohol. ? Exercise every day. ? Lose weight if recommended by your caregiver. ? Eat plenty of calcium and folate. Foods that are rich in calcium include milk, cheese, and broccoli. Foods that are rich in folate include chickpeas, kidney beans, and spinach. HOME CARE INSTRUCTIONS Keep all follow-up appointments as directed by your caregiver. You may need periodic exams to check for polyps. SEEK MEDICAL CARE IF: You notice bleeding during a bowel movement. Document Released: 03/23/2005 Document Revised: 09/18/2012 Document Reviewed: 09/05/2012 ExitCare? Patient Information ?2014 [employer]. This information is not intended to replace advice given to you by your health care provider. Make sure you discuss any questions you have with your health care provider. Diverticulosis Diverticulosis is the condition that develops when small pouches (diverticula) form in the wall of your colon. Your colon, or large intestine, is where water is absorbed and stool is formed. The pouches form when the inside layer of your colon pushes through weak spots in the outer layers of your colon. CAUSES No one knows exactly what causes diverticulosis. RISK FACTORS ? Being older than 50. Your risk for this condition increases with age. Diverticulosis is rare in people younger than 40 years. By age 80, almost everyone has it. ? Eating a low-fiber diet. ? Being frequently constipated. ? Being overweight. ? Not getting enough exercise. ? Smoking. ? Taking bxjv-znu-varzkuq pain medicines, like aspirin and ibuprofen. SYMPTOMS Most people with diverticulosis do not have symptoms. DIAGNOSIS Because diverticulosis often has no symptoms, health care providers often discover the condition during an exam for other colon problems. In many cases, a health care provider will diagnose diverticulosis while using a flexible scope to examine the colon (colonoscopy). TREATMENT If you have never developed an infection related to diverticulosis, you may not need treatment. If you have had an infection before, treatment may include: ? Eating more fruits, vegetables, and grains. ? Taking a fiber supplement. ? Taking a live bacteria supplement (probiotic). ? Taking medicine to relax your colon. HOME CARE INSTRUCTIONS ? Drink at least 6?8 glasses of water each day to prevent constipation. ? Try not to strain when you have a bowel movement. ? Keep all follow-up appointments. If you have had an infection before:? ? Increase the fiber in your diet as directed by your health care provider or dietitian. ? Take a dietary fiber supplement if your health care provider approves. ? Only take medicines as directed by your health care provider. SEEK MEDICAL CARE IF: ? You have abdominal pain. ? You have bloating. ? You have cramps. ? You have not gone to the bathroom in 3 days. SEEK IMMEDIATE MEDICAL CARE IF: ? Your pain gets worse. ? Your?bloating becomes very bad. ? You have a fever or chills, and your symptoms suddenly get worse. ? You begin vomiting. ? You have bowel movements that are bloody or black. MAKE SURE YOU: ? Understand these instructions. ? Will watch your condition. ? Will get help right away if you are not doing well or get worse. Document Released: 03/24/2005 Document Revised: 07/02/2014 Document Reviewed: 05/22/2014 ExitCare? Patient Information ?2014 [employer]. This information is not intended to replace advice given to you by your health care provider. Make sure you discuss any questions you have with your health care provider. [facility] Reminderson 05-08-2019 Reminders - From: Hodan Staley CMA To: [facility] - Reminders/Recalls; Sent: 12/20/2018 13:49:48 EDT Show up: 01/08/2019 13:49:00 EDT Subject: 2018 RECALL Due Date/Time: 02/16/2019 13:49:00 EDT Reminder/Recall Colonoscopy recall [address] Huang Due 02/16/19 First Recall Letter Sent [facility]p Second Recall Letter Sent [facility] Vital Signs Date Time Vital Sign Value Performing Clinician Facility 07-26-2023 11:30-0500 Body height 160.02 cm Lazaro Bergman Other [facility] Other 07-26-2023 11:30-0500 Body mass index (BMI) [Ratio] 31 kg/m2 Lazaro Bergman Other [facility] Other 07-26-2023 11:30-0500 Body weight 79.38 kg Lazaro Bergman Other [facility] Other 07-26-2023 11:30-0500 Diastolic blood pressure 88 mm[Hg] Lazaro Cornell Other [facility] Other 07-26-2023 11:30-0500 Respiratory rate 14 /min Lazaro Ball Other [facility] Other 07-26-2023 11:30-0500 Systolic blood pressure 138 mm[Hg] Lazaro Ball Other [facility] Other 07-03-2023 14:20-0500 Body height 160.02 cm Neida Roseann Other [facility] Other 07-03-2023 14:20-0500 Body mass index (BMI) [Ratio] 31.67 kg/m2 Neida Roseann Other [facility] Other 07-03-2023 14:20-0500 Body temperature 99.3 [degF] Neida Roseann Other [facility] Other 07-03-2023 14:20-0500 Body weight 81.1 kg Neida Roseann Other [facility] Other 07-03-2023 14:20-0500 Diastolic blood pressure 74 mm[Hg] Neida Roseann Other [facility] Other 07-03-2023 14:20-0500 SaO2% (BldA) [Mass fraction] 97 % Neida Roseann Other [facility] Other 07-03-2023 14:20-0500 Systolic blood pressure 108 mm[Hg] Neida Roseann Other [facility] Other 06-14-2023 10:30-0500 Body height 160.02 cm Lazaro Ball Other [facility] Other 06-14-2023 10:30-0500 Body mass index (BMI) [Ratio] 31 kg/m2 Lazaro Ball Other [facility] Other 06-14-2023 10:30-0500 Body weight 79.38 kg Lazaro Ball Other [facility] Other 06-14-2023 10:30-0500 Diastolic blood pressure 85 mm[Hg] Lazaro Ball Other [facility] Other 06-14-2023 10:30-0500 Respiratory rate 12 /min Lazaro Ball Other [facility] Other 06-14-2023 10:30-0500 Systolic blood pressure 138 mm[Hg] Lazaro Ball Other [facility] Other 05-19-2023 10:30-0500 Body height 160.02 cm Lazaro Ball Other [facility] Other 05-19-2023 10:30-0500 Body mass index (BMI) [Ratio] 31.49 kg/m2 Lazaro Ball Other [facility] Other 05-19-2023 10:30-0500 Body weight 80.65 kg Lazaro Ball Other [facility] Other 05-19-2023 10:30-0500 Diastolic blood pressure 68 mm[Hg] Lazaro Ball Other [facility] Other 05-19-2023 10:30-0500 Respiratory rate 12 /min Lazaro Ball Other [facility] Other 05-19-2023 10:30-0500 Systolic blood pressure 165 mm[Hg] Lazaro Ball Other [facility] Other 03-15-2023 10:30-0400 Body height 160.02 cm Lazaro Ball Other [facility] Other 03-15-2023 10:30-0400 Body mass index (BMI) [Ratio] 31.42 kg/m2 Lazaro Ball Other [facility] Other 03-15-2023 10:30-0400 Body weight 80.47 kg Lazaro Ball Other [facility] Other 03-15-2023 10:30-0400 Diastolic blood pressure 73 mm[Hg] Lazaro Ball Other [facility] Other 03-15-2023 10:30-0400 Respiratory rate 12 /min Lazaro Ball Other [facility] Other 03-15-2023 10:30-0400 Systolic blood pressure 113 mm[Hg] Lazaro Ball Other [facility] Other 12-13-2022 11:30-0400 Body height 160.02 cm Lazaro Ball Other [facility] Other 12-13-2022 11:30-0400 Body mass index (BMI) [Ratio] 30.43 kg/m2 Lazaro Ball Other [facility] Other 12-13-2022 11:30-0400 Body weight 77.93 kg Lazaor Ball Other [facility] Other 12-13-2022 11:30-0400 Diastolic blood pressure 68 mm[Hg] Lazaro Ball Other [facility] Other 12-13-2022 11:30-0400 Respiratory rate 12 /min Lazaro Ball Other [facility] Other 06-05-2023 11:30-0400 Systolic blood pressure 127 mm[Hg] Lazaro Ball Other [facility] Other 11-01-2022 10:15-0400 Body height 160.02 cm Lazaro Ball Other [facility] Other 11-01-2022 10:15-0400 Body mass index (BMI) [Ratio] 31.03 kg/m2 Lazaro Ball Other [facility] Other 11-01-2022 10:15-0400 Body weight 79.47 kg Lazaro Ball Other [facility] Other 11-01-2022 10:15-0400 Diastolic blood pressure 72 mm[Hg] Lazaro Ball Other [facility] Other 11-01-2022 10:15-0400 Respiratory rate 12 /min Lazaro Ball Other [facility] Other 11-01-2022 10:15-0400 Systolic blood pressure 134 mm[Hg] Lazaro Ball Other [facility] Other 09-14-2022 15:30-0500 Body height 160.02 cm Lazaro Ball Other [facility] Other 09-14-2022 15:30-0500 Body mass index (BMI) [Ratio] 31.39 kg/m2 Lazaro Ball Other [facility] Other 09-14-2022 15:30-0500 Body weight 80.38 kg Lazaro Ball Other [facility] Other 09-14-2022 15:30-0500 Diastolic blood pressure 82 mm[Hg] Lazaro Ball Other [facility] Other 09-14-2022 15:30-0500 Systolic blood pressure 112 mm[Hg] Lazaro Ball Other [facility] Other 08-06-2022 10:45-0500 Body height 160.02 cm Lazaro Ball Other [facility] Other 08-06-2022 10:45-0500 Body mass index (BMI) [Ratio] 31.53 kg/m2 Lazaro Ball Other [facility] Other 08-06-2022 10:45-0500 Body temperature 98.7 [degF] Lazaro Ball Other [facility] Other 08-06-2022 10:45-0500 Body weight 80.74 kg Lazaro Ball Other [facility] Other 08-06-2022 10:45-0500 Diastolic blood pressure 74 mm[Hg] Lazaro Ball Other [facility] Other 08-06-2022 10:45-0500 SaO2% (BldA) [Mass fraction] 97 % Lazaro Ball Other [facility] Other 08-06-2022 10:45-0500 Systolic blood pressure 126 mm[Hg] Lazaro Ball Other [facility] Other 07-20-2022 15:15-0500 Body height 160.02 cm Lazaro Ball Other [facility] Other 07-20-2022 15:15-0500 Body mass index (BMI) [Ratio] 31.24 kg/m2 Lazaro Ball Other [facility] Other 07-20-2022 15:15-0500 Body weight 80.02 kg Lazaro Ball Other [facility] Other 07-20-2022 15:15-0500 Diastolic blood pressure 82 mm[Hg] Lazaro Bergman Other [facility] Other 07-20-2022 15:15-0500 Respiratory rate 12 /min Lazaro Bergman Other [facility] Other 07-20-2022 15:15-0500 Systolic blood pressure 122 mm[Hg] Lazaro Bergman Other [facility] Other Encounters Encounter Date Encounter Type Care Provider Facility Start: 07-26-2023 End: 07-26-2023 ambulatory Lazaro Bergman Other [facility] Other Start: 07-26-2023 Office outpatient vi sit [address] [facility] Start: 07-15-2023 End: 07-15-2023 ambulatory Lazaro Bergman Other [facility] Other Start: 07-15-2023 Telephone encounter Lazaro Bergman [facility] Start: 07-03-2023 End: 07-03-2023 ambulatory Neida Whitfield Other [facility] Other Start: 07-03-2023 Office outpatient vi sit 15 minutes Neida Whitfield [facility] Start: 06-14-2023 End: 06-14-2023 ambulatory Lazaro Bergman Other [facility] Other Start: 06-14-2023 Office outpatient vi sit 25 minutes Lazaro Bergman [facility] Start: 05-19-2023 End: 05-19-2023 ambulatory Lazaro Bergman Other [facility] Other Start: 05-19-2023 Office outpatient vi sit 15 minutes Lazaro Bergman [facility] Start: 04-11-2023 End: 04-12-2023 ambulatory David Jalloh MD Facility:[facility] Start: 03-28-2023 End: 03-28-2023 ambulatory Lazaro Bergman Other [facility] Other Start: 03-28-2023 Telephone encounter Lazaro Bergman [facility] Start: 03-15-2023 End: 03-15-2023 ambulatory Lazaro Bergman Other [facility] Other Start: 03-15-2023 Patient encounter procedure Lazaro Bergman [facility] Start: 02-17-[address] LAZARO Carrion ty:[facility]1 Start: 12-13-2022 End: 12-13-2022 ambulatory Lazaro Bergman Other [facility] Other Start: 12-13-2022 Office outpatient vi sit [address] [facility] Start: 11-19-2022 End: 11-20-2022 ambulatory JOANNA AGUILAR . Facility:[facility] Start: 11-19-[address] LAZARO Carrion ty:[facility] Start: 11-09-2022 End: 11-10-[address] LAZARO BERGMAN Facility:[facility] Start: 11-01-2022 Office outpatient vi sit [address] [facility] Start: 11-01-2022 Telephone encounter Lazaro Bergman [facility] Start: 11-01-2022 End: 11-02-[address] LAZARO BERGMAN [facility] [employer] Other Start: 09-22-2022 End: 09-23-[address] LAZARO BERGMAN Facility:[facility] Start: 09-16-2022 End: 09-17-2022 ambulatory SANTO REA . Facility:[facility] Start: 09-14-2022 End: 09-14-2022 ambulatory Lazaro Bergman Other [facility] Other Start: 09-14-2022 Office outpatient vi sit [address] [facility] Start: 09-14-2022 Telephone encounter Lazaro Bergman [facility] Start: 08-31-2022 End: 08-31-[address] SANDHYA GIRALDO . Facility:[facility] Start: 08-26-2022 End: 08-27-2022 ambulatory SANTO REA . Facility:[facility] Start: 08-06-2022 End: 08-06-2022 ambulatory Lazaro Bergman Other [facility] Other Start: 08-06-2022 Telephone encounter Lazaro Bergman [facility] Start: 08-06-2022 Transitional care manage srvc 14 day discharge Lazaro Bergman [facility] Start: 08-02-2022 End: 08-03-[address] CARLOS PRUETT . Facility:[facility] Start: 07-28-2022 End: 07-28-2022 ambulatory Lazaro Bergman Other [facility] Other Start: 07-28-2022 Telephone encounter Lazaro Bergman [facility] Start: 07-20-2022 End: 07-20-2022 ambulatory Lazaro Bergman Other [facility] Other Start: 07-20-2022 Office outpatient vi sit 25 minutes Lazaro Bergman [facility] Start: 06-24-2022 End: 06-25-[address] LAZARO BERGMAN Facility:[facility] Start: 06-09-2022 End: 06-10-2022 ambulatory SANTO REA . Facility:[facility] Start: 05-25-2022 End: 05-25-[address] SANDHYA GIRALDO . Facility:[facility] Start: 05-18-2022 End: 05-19-[address] SANDHYA GIRALDO . Facility:[facility] Start: 04-29-2022 End: 04-30-[address] LAZARO BERGMAN Facility:[facility] Start: 03-24-2022 Adult health examination Lazaro Bergman Other [facility] Other Start: 06-30-2021 End: 06-30-2021 Patient encounter procedure MD Bossman Robledo Work Phone: [facility] Vaccine Off Site Start: 06-30-2021 ([facility] C Vac) [facility] Co vid Vaccine Chetna Dueñas [facility] Start: 06-30-2021 End: 06-30-2021 ambulatory Chetna Dueñas Other [facility] Other Procedures Date Procedure Procedure Detail Performing Clinician Start: 04-05-2017 Screening for osteoporosis Lazrao Bergman Other Start: 04-05-2017 Screening mammography B enxenia Bergman Other Start: 05-16-2015 Screening for malign ant neoplasm of colon Lazaro Bergman Other Depression screening Benjami n [facility] Other Depression screening Shivamami n [facility] Other Screening for malign ant neoplasm of breast Lazaro Bergman Other Screening for malign ant neoplasm of breast Lazaro Bergman Other Immunizations Immunization Date Immunization Notes Care Provider Krysten jin 03-15-2023 influenza, high dose seasonal, preservative-free Lazaro Bergman Other [facility] Other 03-24-2022 influenza virus vaccine, split virus (incl. purified surface antigen) Lazaro Bergman Other [facility] Other 06-30-2021 COVID-19 Moderna Chetna Dueñas Other [facility] Other 06-18-2021 influenza virus vaccine, split virus (incl. purified surface antigen) Lazaro Bergman Other [facility] Other 05-10-2019 influenza virus vaccine, split virus (incl. purified surface antigen) Lazaro Bergman Other [facility] Other 03-22-2018 influenza virus vaccine, split virus (incl. purified surface antigen) Lazaro Bergman Other [facility] Other 04-05-2017 influenza virus vaccine, split virus (incl. purified surface antigen) Lazaro Bergman Other [facility] Other 04-23-2016 influenza virus vaccine, split virus (incl. purified surface antigen) Lazaro Bergman Other [facility] Other 05-16-2015 pneumococcal conjugate vaccine, 13 valent Lazaro Bergman Other [facility] Other 03-29-2014 tetanus and diphtheria toxoids, adsorbed, preservative free, for adult use (5 Lf of tetanus toxoid and 2 Lf of diphtheria toxoid) Lazaro Cornell Other [facility] Other 04-05-2013 tetanus and diphtheria toxoids, adsorbed, preservative free, for adult use (5 Lf of tetanus toxoid and 2 Lf of diphtheria toxoid) Lazaro Cornell Other [facility] Other NEGATED: Highlighted row has not occurred!03-19-2020 influenza virus vaccine, split virus (incl. purified surface antigen) Lazaro Cornell Other [facility] Other Payers Date Payer Category Payer Private Health Insurance 2022 Unknown 1960 Medicare [id number] 2.1 [id number] 1960 Private Health Insurance [id number] 1934 Unknown [id number] 2.16.84 [id number] 1934 Unknown [id number] 2.16.84 [id number] 1934 Unknown [id number] 2.16.84 0.1.349184.3.579.2.593 1934 Unknown [id number] 2.16.84 0.1.102140.3.579.2.593 1934 Unknown [id number] 2.16.84 0.1.271520.3.579.2.593 1934 Unknown [id number] 2.16.84 0.1.008144.3.579.2.593 1934 Unknown [id number] 2.16.84 0.1.466610.3.579.2.593 1934 Unknown [id number] 2.16.84 0.1.603368.3.579.2.593 1934 Unknown [id number] 2.16.84 0.1.742622.3.579.2.593 1934 Unknown [id number] 2.16.84 0.1.010141.3.579.2.593 1934 Unknown [id number] 2.16.84 0.1.400889.3.579.2.593 1934 Unknown [id number] 2.16.84 0.1.569729.3.579.2.593 1934 Unknown [id number] 2.16.84 0.1.560196.3.579.2.593 1934 Unknown [id number] 2.16.84 0.1.489538.3.579.2.593 1934 Unknown [id number] 2.16.84 0.1.900130.3.579.2.593 1934 Unknown [id number] 2.16. [id number] Medicare [id number] Self-pay Self Pay [id number] Social History Date Type Detail Facility Tobacco smoking status MSIS Unknown if ever smoked [facility] Start: 1935 Sex Assigned At Female F [facility] Sex Assigned At Sex Assigned At Bir th [facility] Other Medical Equipment Procedure Code Equipment Code Equipment Original Text Equi pment Identifier Dates Freestyle lite test strips Clinical Notes 06-30-2021 to 07-26-2023 Note Date & Type Note Facility 07-26-2023 Evaluation note Encounter Date Diagnosis Assessment Notes Jul, Primary osteoarthritis of both hips (ICD-10 - M16.0) ROM exercises, ice, Lidocaine and Voltaren Gel. Tylenol 1000mg q HS. She is to avoid squatting. Jul, Stage 3a chronic kidney disease (ICD-10 - N18.31) The patient is instructed on adequate control of hypertension and diabetes, if appropriate. They are also educated on the associated risks of NSAIDs and PPI use with kidney disease. They were instructed on adequate fluid balance and to avoid dehydration. Jul, Impacted cerumen of left ear (ICD-10 - H61.22) K[facility] w/ irrigation and spoon. TM visualized and was intact and translucent. Hearing much improved. [facility] Other 01-05-2024 Evaluation note* Encounter Date Diagnosis Assessment Notes Treatment Notes Treatment Clinical Notes Jul, JOSE (generalized anxiety disorder) (ICD-10 - F41.1) [facility] Other 12-24-2023 Evaluation note* Encounter Date Diagnosis Assessment Notes Treatment Notes Treatment Clinical Notes Jun, Acute sinusitis, recurrence not specified, unspecified location (ICD-10 - J01.90) Sinusitis home care material was printed Drink plenty fluids, get plenty of rest. Use the Flonase nasal spray, fluticasone, as prescribed daily until your symptoms improved. Run a coolmist humidifier at the bedside. Take the benzonatate capsules as prescribed as needed for cough. Take Tylenol or Motrin as needed for aches pains or fevers. Fill and take the cephalexin as prescribed until gone if your symptoms do not improve in the next 2 to 3 days. Follow-up with your family physician if no improvement in 4 to 5 days Jun, Acute cough (ICD-10 - R05.1) [facility] Other 12-05-2023 Evaluation note* Encounter Date Diagnosis Assessment Notes Treatment Notes Treatment Clinical Notes Jun, Type 2 diabetes mellitus with hyperglycemia, without long-term current use of insulin (ICD-10 - E11.65) This patient is following a comprehensive diabetic treatment plan. They are checking their feet daily for calluses and nonhealing ulcers. They are being seen for yearly dilated eye examinations. Goals: SBP less than 130, LDL less than 100, FBS less than 140, A1C less than 7%. They are checking their BS daily, will which are reviewed at the office visit. Continue regular routine monitoring of A1C,] Microalbumin, Dilated eye exam and Foot exam Jun, Type 2 diabetes mellitus with diabetic polyneuropathy, without long-term current use of insulin (ICD-10 - E11.42) Inspect feet daily for cuts and calluses.Recommend diabetic shoes and inserts to prevent callus formation.Fall precautions. Jun, Stage 3a chronic kidney disease (ICD-10 - N18.31) The patient is instructed on adequate control of hypertension and diabetes, if appropriate. They are also educated on the associated risks of NSAIDs and PPI use with kidney disease. They were instructed on adequate fluid balance and to avoid dehydration. Jun, Primary hypertension (ICD-10 - I10) This patient is instructed to consume a healthy, low-fat, low-salt diet. They are also encouraged to continue exercise to achieve/maintain a normal BMI. Patient is instructed on home BP measurements: - rest for 5 minutes w/o talking- positioned w/ feet on floor and arm supported- average best 2/3 readings w/ goal < 135/85 Jun, Elevated cholesterol (ICD-10 - E78.00) Instructed on diet and exercise with continued statin therapy.Discussed the beneficial effects of lowering cholesterol in reducing the risk for cerebrovascular and cardiovascular disease. Jun, Gastro-esophageal reflux disease with esophagitis, without bleeding (ICD-10 - K21.00) Diet instructions: Smaller portions, avoid eating and laying flat, avoid eating or drinking prior to bedtime. Weight loss. Jun, JOSE (generalized anxiety disorder) (ICD-10 - F41.1) Healthy diet and keep active No change in medical therapy Jun, Lumbar spondylosis (ICD-10 - M47.816) The patient is instructed to avoid bending, twisting or lifting. They are to use intermittent heat and ice as needed. They may schedule a massage or gentle manipulation. They may safely use Tylenol as needed. Much improved w/ completion of PT - continue HEP Jun, Other obesity due to excess calories (ICD-10 - E66.09) This patient has been instructed on a low-fat, high-fiber diet. They are instructed to reduce calories, portion sizes and snacks. It is recommended that they exercise for 30 minutes, 3-5 times weekly. Jun, Body mass index [BMI] 31.0-31.9, adult (ICD-10 - Z68.31) [facility] Other 11-09-2023 Evaluation note* Encounter Date Diagnosis Assessment Notes Treatment Notes Treatment Clinical Notes May, Lumbar foraminal stenosis (ICD-10 - M48.061) The patient is instructed to avoid bending, twisting or lifting. They are to use intermittent heat and ice as needed. They may schedule a massage or gentle manipulation. They may safely use Tylenol as needed. 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 Continue f/u with pain management. Continue T#3 as needed for severe pain [facility] Other 09-05-2023 Evaluation note* Encounter Date Diagnosis Assessment Notes Treatment Notes Treatment Clinical Notes Mar, Type 2 diabetes mellitus with hyperglycemia, without long-term current use of insulin (ICD-10 - E11.65) This patient is following a comprehensive diabetic treatment plan. They are checking their feet daily for calluses and nonhealing ulcers. They are being seen for yearly dilated eye examinations. Goals: SBP less than 130, LDL less than 100, FBS less than 140, AC and A1C less than 7%. They are checking their BS daily, will which are reviewed at the office visit. Continue regular routine monitoring of A1C,] Microalbumin, Dilated eye exam and Foot exam Mar, Primary hypertension (ICD-10 - I10) This patient is instructed to consume a healthy, low-fat, low-salt diet. They are also encouraged to continue exercise to achieve/maintain a normal BMI. Mar, Type 2 diabetes mellitus with diabetic polyneuropathy, without long-term current use of insulin (ICD-10 - E11.42) Inspect feet daily for cuts and calluses.Recommend diabetic shoes and inserts to prevent callus formation.Fall precautions. Mar, Stage 3a chronic kidney disease (ICD-10 - N18.31) The patient is instructed on adequate control of hypertension and diabetes, if appropriate. They are also educated on the associated risks of NSAIDs and PPI use with kidney disease. They were instructed on adequate fluid balance and to avoid dehydration. Mar, Gastro-esophageal reflux disease with esophagitis, without bleeding (ICD-10 - K21.00) Diet instructions: Smaller portions, avoid eating and laying flat, avoid eating or drinking prior to bedtime. Weight loss. Mar, Elevated cholesterol (ICD-10 - E78.00) Instructed on diet and exercise with continued statin therapy.Discussed the beneficial effects of lowering cholesterol in reducing the risk for cerebrovascular and cardiovascular disease. Mar, JOSE (generalized anxiety disorder) (ICD-10 - F41.1) Healthy diet and exercise, keep active No change in medical therapy Mar, Vasomotor rhinitis (ICD-10 - J30.0) Mar, Medicare annual wellness visit, subsequent (ICD-10 - Z00.00) Personalized health advice was given to the beneficiary including a written plan for screenings discussed and provided. Advanced care planning reviewed and/or information given as requested. Additional counseling was provided here today in regards to, [ ]. The above visit was performed by [ ], under direct supervision of [ ]. Document reviewed and amended by provider signed below. Mar, Screening mammogram for breast cancer (ICD-10 - Z12.31) Mar, Menopause (ICD-10 - Z78.0) Mar, High risk medication use (ICD-10 - Z79.899) Mar, Other US completed t [facility] Other 06-05-2023 Evaluation note* Encounter Date Diagnosis Assessment Notes Treatment Notes Treatment Clinical Notes Dec, Type 2 diabetes mellitus with hyperglycemia, without long-term current use of insulin (ICD-10 - E11.65) This patient is following a comprehensive diabetic treatment plan. They are checking their feet daily for calluses and nonhealing ulcers. They are being seen for yearly dilated eye examinations. Goals: SBP less than 130, LDL less than 100, FBS less than 140, AC and A1C less than 7%. They are checking their BS daily, will which are reviewed at the office visit. Continue regular routine monitoring of A1C,] Microalbumin, Dilated eye exam and Foot exam A1C due Dec, Primary hypertension (ICD-10 - I10) This patient is instructed to consume a healthy, low-fat, low-salt diet. They are also encouraged to continue exercise to achieve/maintain a normal BMI. Dec, Type 2 diabetes mellitus with diabetic polyneuropathy, without long-term current use of insulin (ICD-10 - E11.42) Inspect feet daily for cuts and calluses.Recommend diabetic shoes and inserts to prevent callus formation.Fall precautions. Dec, Stage 3a chronic kidney disease (ICD-10 - N18.31) The patient is instructed on adequate control of hypertension and diabetes, if appropriate. They are also educated on the associated risks of NSAIDs and PPI use with kidney disease. They were instructed on adequate fluid balance and to avoid dehydration. Dec, Excessive cerumen in left ear canal (ICD-10 - H61.22) Irrigated clear w/ water picc and use of forceps. Post irrigation, TM intact and translucent [facility] Other 04-24-2023 Evaluation note* Encounter Date Diagnosis Assessment Notes Treatment Notes Treatment Clinical Notes Oct, Urticaria (ICD-10 - L50.9) No new medications. Benadryl is beneficial, instructed to take at HS Initiate Zyrtec each morning Check TSH Medications: HCTZ, Metformin? No improvement, referral to [employer] Oct, Lumbar spondylosis (ICD-10 - M47.816) Oct, Essential (primary) hypertension (ICD-10 - I10) This patient is instructed to consume a healthy, low-fat, low-salt diet. They are also encouraged to continue exercise to achieve/maintain a normal BMI. Oct, Stage 3a chronic kidney disease (ICD-10 - N18.31) The patient is instructed on adequate control of hypertension and diabetes, if appropriate. They are also educated on the associated risks of NSAIDs and PPI use with kidney disease. They were instructed on adequate fluid balance and to avoid dehydration. No Downs-2 or NSAIDs for arthritic pain Oct, Type 2 diabetes mellitus with hyperglycemia, without long-term current use of insulin (ICD-10 - E11.65) This patient is following a comprehensive diabetic treatment plan. They are checking their feet daily for calluses and nonhealing ulcers. They are being seen for yearly dilated eye examinations. Goals: SBP less than 130, LDL less than 100, FBS less than 140, AC and A1C less than 7%. They are checking their BS daily, will which are reviewed at the office visit. FBS < 150 goal Continue to monitor at home [facility] Other 04-24-2023 Evaluation note* Encounter Date Diagnosis Assessment Notes Treatment Notes Treatment Clinical Notes Oct, Thyroid nodule (ICD-10 - E04.1) [facility] Other 03-09-2023 NoteCONSULTATION CONSULTATION DATE: 09/16/2022 HISTORY OF PRESENT ILLNESS: This is a very active and pleasant, 87-year-old female, who returns to the clinic status post left hip injection completed on 08/31/2022. Patient states she received 50% relief which is ongoing. She is very active and walks her dog daily; however, she is complaining of diffuse mid lower back pain and increased left hip pain today. She rates her pain 2/10 at rest and will increase to 4/10 with activities. This includes walking, housework, transitioning positions and stairs. She does have slight diffuse hypoesthesia to bilateral hands and feet. Medications include Tylenol #3 daily p.r.n., melatonin, sertraline and a multivitamin. She was prescribed Celebrex in the past, which she initially found helpful, but the patient states it made her itch and that was resolved with oral Benadryl. She share today that she has stage 3 kidney disease. Patient's REVIEW OF SYSTEMS / PAST MEDICAL HISTORY / ALLERGIES and IMAGES have been reviewed and noted on the chart. PHYSICAL EXAM: VITAL SIGNS: Blood pressure 160/73, heart rate is 78. Temperature is 97.8. She is 62 and weighs 81 kg. GENERAL IMPRESSION: Pleasant, appropriate, in no acute distress. FOCUSED EXAM - BACK: Range of motion is functional in lateral rotation and flexion/extension. Paravertebral muscles are non-spasmodic. Mild spinal axial pain upon compression along the lower lumbar facets of L3, L4, L5 bilaterally. Pain does not radiate below the knees. Deacon's point mildly tender bilaterally with negative FABERs and compression test. MUSCULOSKELETAL: Motor is intact, 4/5 bilaterally. Patient walks unassisted with a stable gait. Point tenderness to bilateral hips anterior and posterior. Range of motion is guarded in lateral extension and adduction/abduction bilaterally. NEUROLOGICAL: Patchy hypoesthesia non-dermatomal to bilateral hands and feet. Radicular sensory is intact bilateral lower extremities with +1 bilateral patellar reflexes. Patient is cognitively intact. DIAGNOSIS: Chronic lower back pain, bilateral hip osteoarthritis, lumbar degenerative disc disease. PLAN: We will not prescribe further NSAIDs at this time to preserve her kidney function. We will change her Tylenol #3 to tramadol 50 mg b.i.d. Patient agrees with this plan and will return to the clinic in three months' time for re-evaluation.[facility] [id number] Evaluation note* Encounter Date Diagnosis Assessment Notes Treatment Notes Treatment Clinical Notes Sep, Type 2 diabetes mellitus with hyperglycemia, without long-term current use of insulin (ICD-10 - E11.65) This patient is following a comprehensive diabetic treatment plan. They are checking their feet daily for calluses and nonhealing ulcers. They are being seen for yearly dilated eye examinations. Goals: SBP less than 130, LDL less than 100, FBS less than 140, AC and A1C less than 7%. They are checking their BS daily, will which are reviewed at the office visit. Sep, Type 2 diabetes mellitus with diabetic polyneuropathy, without long-term current use of insulin (ICD-10 - E11.42) Inspect feet daily for cuts and calluses.Recommend diabetic shoes and inserts to prevent callus formation.Fall precautions. Sep, Essential hypertension (ICD-10 - I10) This patient is instructed to consume a healthy, low-fat, low-salt diet. They are also encouraged to continue exercise to achieve/maintain a normal BMI. Sep, Stage 3a chronic kidney disease (ICD-10 - N18.31) The patient is instructed on adequate control of hypertension and diabetes, if appropriate. They are also educated on the associated risks of NSAIDs and PPI use with kidney disease. They were instructed on adequate fluid balance and to avoid dehydration. Sep, Elevated cholesterol (ICD-10 - E78.00) Diet and exercise with continued statin therapy. Sep, Paresthesias (ICD-10 - R20.2) Reassure, fall precautions. Likely diabetic neuropathy. Sep, Urticaria (ICD-10 - L50.9) Claritin daily for 4wks, Benadryl as needed [facility] Other 03-07-2023 Evaluation note* Encounter Date Diagnosis Assessment Notes Treatment Notes Treatment Clinical Notes Sep, TIA (transient ischemic attack) (ICD-10 - G45.9) Sep, Paresthesias (ICD-10 - R20.2) Sep, Fatigue, unspecified type (ICD-10 - R53.83) [facility] Other 02-16-2023 NoteCONSULTATION CONSULTATION DATE: 08/26/2022 HISTORY OF PRESENT ILLNESS: This is a pleasant and active, 87-year-old female who returns to the clinic for a three month follow up for lower back pain and left hip pain. Today, she states her pain is primarily to her left hip, which she rates 5-6/10. It is sharp. She does take Tylenol #3 on an as needed basis, definitely not daily. At her last appointment with us in May, she was prescribed Celebrex but she does have a sulfa allergy and the Celebrex made her itch. Her PCP has put her on nabumetone which he did end up discontinuing on her own, as she found it non-helpful. Other medications include multivitamin and sertraline. She is a diabetic and does have chronic neuropathy to bilateral lower feet. Patient's REVIEW OF SYSTEMS / PAST MEDICAL HISTORY / ALLERGIES and IMAGES have been reviewed and noted on the chart. PHYSICAL EXAM: VITAL SIGNS: Blood pressure is 104/59. Heart rate is 74. Temperature is 96.4. She is 5'3 , weighs 80 kg. GENERAL IMPRESSION: Pleasant, appropriate, no acute distress. FOCUSED EXAM - BACK: Range of motion is functional in lateral rotation and flexion/extension. Paravertebral muscles are non-spasmodic. No reproduction of spinal axial pain upon compression of the lumbar facets. Deacon's point mildly tender to the right, which is non-radiating. MUSCULOSKELETAL: Motor is intact, 4/5 bilaterally. Patient walks unassisted with a stable gait. Bilateral hips with point tenderness to the anterior and posterior portion upon compression. Range of motion is guarded in adduction, abduction and lateral raises bilaterally. Left hip bursa mildly tender upon palpation. NEUROLOGICAL: Diffuse neuropathy bilateral feet, which is non-dermatomal. Patient is cognitively intact. Bilateral patellar and Achilles reflexes are +1. DIAGNOSIS: Bilateral hip osteoarthritis and lower back pain. PLAN: We will move forward with a left intra-articular hip injection, which the patient does consent to. I went over patient's x-ray with her to bilateral hips, and patient does agree to move forward with the procedure. She will be followed up in the office thereafter.[facility] [id number] Evaluation note* Encounter Date Diagnosis Assessment Notes Treatment Notes Treatment Clinical Notes Jul, Type 2 diabetes mellitus with hyperglycemia, without long-term current use of insulin (ICD-10 - E11.65) This patient is following a comprehensive diabetic treatment plan. They are checking their feet daily for calluses and nonhealing ulcers. They are being seen for yearly dilated eye examinations. Goals: SBP less than 130, LDL less than 100, FBS less than 140, AC and A1C less than 7%. They are checking their BS daily, will which are reviewed at the office visit. A1C: due Jul, Type 2 diabetes mellitus with diabetic polyneuropathy, without long-term current use of insulin (ICD-10 - E11.42) Inspect feet daily for ulcers and calluses. Recommend diabetic shoes and inserts to prevent pre ulcer callus formation. Fall precautions Jul, Essential hypertension (ICD-10 - I10) This patient is instructed to consume a healthy, low-fat, low-salt diet. They are also encouraged to continue exercise to achieve/maintain a normal BMI. Jul, Stage 3a chronic kidney disease (ICD-10 - N18.31) The patient is instructed on adequate control of hypertension and diabetes, if appropriate. They are also educated on the associated risks of NSAIDs and PPI use with kidney disease. They were instructed on adequate fluid balance and to avoid dehydration. Jul, Elevated cholesterol (ICD-10 - E78.00) Diet and exercise with continued statin therapy. Jul, Paresthesias (ICD-10 - R20.2) [facility] Other 01-18-2023 Evaluation note* Encounter Date Diagnosis Assessment Notes Treatment Notes Treatment Clinical Notes Jul, Type 2 diabetes mellitus with hyperglycemia, without long-term current use of insulin (ICD-10 - E11.65) [facility] Other 01-10-2023 Evaluation note* Encounter Date Diagnosis Assessment Notes Treatment Notes Treatment Clinical Notes Jul, Essential (primary) hypertension (ICD-10 - I10) This patient is instructed to consume a healthy, low-fat, low-salt diet. They are also encouraged to continue exercise to achieve/maintain a normal BMI. Jul, Stage 3a chronic kidney disease (ICD-10 - N18.31) The patient is instructed on adequate control of hypertension and diabetes, if appropriate. They are also educated on the associated risks of NSAIDs and PPI use with kidney disease. They were instructed on adequate fluid balance and to avoid dehydration. Jul, Type 2 diabetes mellitus with hyperglycemia, without long-term current use of insulin (ICD-10 - E11.65) This patient is following a comprehensive diabetic treatment plan. They are checking their feet daily for calluses and nonhealing ulcers. They are being seen for yearly dilated eye examinations. Goals: SBP less than 130, LDL less than 100, FBS less than 140, AC and A1C less than 7%. They are checking their BS daily, will which are reviewed at the office visit. Will be referring patient to diabetic education for review of dietary guidelines, exercise and weight loss. Increase JAIME to 6mg qd. Jul, Type 2 diabetes mellitus with diabetic polyneuropathy, without long-term current use of insulin (ICD-10 - E11.42) Inspect feet daily for cuts and ulcers. Fall precautions. Have failed treatment w/ Gabapentin and declines trial of any additional medications Jul, Lumbar spondylosis (ICD-10 - M47.816) The patient is instructed to avoid bending, twisting or lifting. They are to use intermittent heat and ice as needed. They may schedule a massage or gentle manipulation. They may safely use Tylenol as needed. Referred to pain management w/ little benefit from injections to date. May try ablation but awaiting insurance coverage. Initiated Tylenol #[address] Giraldo w/ improvements in arthritic pain. - informed on potential side effects of opiates: memory impairment, unsteadiness and sedation. Jul, Elevated cholesterol (ICD-10 - E78.00) Diet and exercise, intolerant to statin therapy Jul, Obesity (BMI 30.0-34.9) (ICD-10 - E66.9) This patient has been instructed on a low-fat, high-fiber diet. They are instructed to reduce calories, portion sizes and snacks. It is recommended that they exercise for 30 minutes, 3-5 times weekly. Jul, Gastro-esophageal reflux disease with esophagitis, without bleeding (ICD-10 - K21.00) Diet instructions: Smaller portions, avoid eating and laying flat, avoid eating or drinking prior to bedtime. Weight loss. Continue PPI Jul, Nontoxic single thyroid nodule (ICD-10 - E04.1) Yearly thyroid US FNA 2019, stable TR3, TR4 03/2021 Repeat 2022 [facility] Other 11-30-2022 NoteCONSULTATION CONSULTATION DATE: 06/09/2022 HISTORY OF PRESENT ILLNESS: This is a very vibrant and active, 87-year-old female returning to the clinic status post #1 bilateral MBB of L2, L3 and L4, L5 completed on 05/25/2022. The patient reported no relief whatsoever. At her last office visit on 05/18/2022, the patient received bilateral gluteal trigger point injections, which she reports 75% relief for one week. Activities such as prolonged standing, walking and evening hours as well as physical activity aggravate her pain. Sitting and lying down decrease her pain. Medications include baclofen 10 mg q.h.s. which the patient reports does not help, sertraline, Aleve p.r.n. and multivitamin. She was prescribed tramadol 50 mg b. i.d., which the patient stopped taking due to making her itch. She did not feel it was helpful. Patient does have chronic right shoulder pain. She had an injection per her PCP approximately two weeks ago. Patient's REVIEW OF SYSTEMS / PAST MEDICAL HISTORY / ALLERGIES and IMAGES have been reviewed and they are noted on the chart. PHYSICAL EXAM: VITAL SIGNS: Blood pressure 135/73, heart rate is 52. Temperature is 96.6. She is 5'3 , weighs 80 kg. GENERAL IMPRESSION: Pleasant, appropriate, cognitively intact. Friend is at chair side. FOCUSED EXAM - BACK: Range of motion slightly guarded in lateral rotation and flexion/extension. Reproduction of spinal axial pain upon deep compression along L4, L5, S1 bilaterally. Deacon's point mildly tender bilaterally with radiating pain to the hips. FABERs and compression test are negative. MUSCULOSKELETAL: Motor is intact, 4/5 bilaterally. Good muscle tone. Patient does not use an assistive device to ambulate. Bilateral hip pain point tenderness to the anterior aspect. Decreased range of motion to adduction and lateral raise. Mild crepitus noted. NEUROLOGICAL: Radicular sensory is intact. +1 bilaterally reflexes. DIAGNOSIS: Bilateral hip osteoarthritis, lumbar degenerative disc disease, lumbar spondylosis and chronic lower back pain. PLAN: We will start the patient on Celebrex 100 mg b.i.d. Tramadol will be discontinued and we will place the patient on Tylenol #3 one daily p.r.n. I feel most of her pain is inflammatory in nature, and that she would benefit from the Celebrex. I did recommend, after reviewing bilateral hip x-rays, to do bilateral hip joint injections. Patient is in agreement to that; however, would like to trial the Celebrex and see how she does with that first. If she does decide to move forward with the hip injections, she will call the office and be followed up in the clinic thereafter. Patient agrees with the plan and all questions answered.[facility] [id number] NoteCONSULTATION CONSULTATION DATE: 05/18/2022 CHIEF COMPLAINT: Bilateral buttock pain, low back pain, left hip pain. HISTORY OF PRESENT ILLNESS: This is a very pleasant, very young, 87-year-old female who has had chronic low back pain. Sitting mitigates the patient's pain. Standing, walking, activities, bending, climbing stairs, ADLs aggravate the patient's pain. The patient ambulates without any assistive devices. The patient has dysfunction in the kidneys and, as such, cannot take anti-inflammatories. The patient is a diabetic, does suffer from polyneuropathy of the lower extremities. The patient is a retired beautician. The patient used to play tennis a very aggressive manner. The patient's PAST MEDICAL HISTORY / SURGICAL HISTORY / REVIEW OF SYSTEMS are noted on the chart, along with the MEDICATION LIST which is sertraline 100 mg daily and Tylenol [id number]. X-RAYS of the lumbar spine and hip were reviewed in office today. Reports are noted on to the chart. PHYSICAL EXAMINATION: Upon physical examination, this is a very pleasant, vital, rather young, 87-year-old female, who does not appear to be any acute distress. VITAL SIGNS: Stable at 128/76 with a heart rate of 82. At a height of 5'3 , the patient weighs 85 kg. HEAD: Atraumatic, normocephalic. NECK: Crepitus is noted. HEART: No orthopnea. LUNGS: Non-labored breathing. ABDOMEN: Soft, non-distended. BACK: Significant paravertebral spasming, left hand side greater than right hand side, slight rotatory component. The patient does have scoliotic curve noted on the lumbar spine. With regards to the patient's back, extension, compression, direct palpation along the posterior elements aggravate the patient's pain concordant with facet arthropathy, lumbar spondylosis. EXTREMITIES: Well developed musculature present in the lower extremities bilaterally. Jump response is present along the gluteal on the left hand side, with reproduction of the patient's pain symptomatology; on the right hand side slightly. MUSCULOSKELETAL: Intact at 5+/5 bilaterally. NEUROLOGICALLY: Polyneuropathy of the legs are noted distal to the knees. PSYCHIATRICALLY: Affect is appropriate. IMPRESSION: Lumbar degenerative disc disease, lumbar spinal canal stenosis, lumbar spondylosis, scoliosis of the lumbar spine, polyneuropathy of the lower extremities, significant spasming of the left gluteal region and lumbar paravertebrals. PLAN: We will have the patient take baclofen 10 mg p.o. q.p.m., tramadol 50 mg half to one tablet as needed. The patient is looking forward to a very large family gathering for Thanksgiving. The patient will be scheduled for a diagnostic lumbar medial branch block under fluoroscopy at the level of L2-3 and 4-5. The patient, in the interim, will receive a gluteal trigger point injection in office today. The patient understands and would like to proceed. CC: Lazaro Bergman D.O.[facility]11-08-2022 NoteCONSULTATION PROCEDURE DATE: 05/18/2022 PREOPERATIVE DIAGNOSIS: Lumbar and gluteal paravertebral spasm. POSTOPERATIVE DIAGNOSIS: Lumbar and gluteal paravertebral spasm. PROCEDURE: Lumbar/gluteal trigger point injection x4. Subsequent to obtaining informed consent, the patient was placed in the prone position. Alcohol prep was used to sterilize the site. A 25 gauge needle was advanced until it comes to rest along the gluteal and lumbar trigger points marked. Marcaine 0.125% along with Kenalog a total of 40 mg for a volume of 3 cc are injected to the sites. Negative heme. The patient tolerates the procedure well without any overt complications. Post procedurally, reports having mitigation in her pain symptomatology.[facility] [id number] NotePROCEDURE: XR HIP LT 2 3V W PELVIS COMPARISON: None. HISTORY: Pain of left hip joint FINDINGS: BONES:No acute fracture or dislocation. Moderate right and mild left hip osteoarthropathy with joint space narrowing and marginal osteophyte formation. Moderate degenerative changes of the spine SOFT TISSUES:Negative. No visible soft tissue swelling. EFFUSION:None visible. OTHER: Negative. IMPRESSION: Osteoarthritis Electronically authenticated by: RUDY TEAGUE Date: 2022-04-30 07:18[facility] [id number] Evaluation note* Encounter Date Diagnosis Assessment Notes Treatment Notes Treatment Clinical Notes Jun, Encounter for immunization (ICD-10 - Z23) Patient presents for COVID-19 vaccination BOOSTER. Pre-screening form answers evaluated with patient. Patient denies current illness or allergic reaction to component of COVID-19 vaccine. Patient provided with current copy of EUA. KAYAK Other Evaluation noteNo assessment information available [facility] noteNo InformationNort PowerReviews Other Hismouk general Narrative - Reported* Type Description Date Medical History hypertension Medical History type II diabetes Medical History Esophageal reflux Surgical History hysterectomy Surgical History knee replacement Surgical History rotator cuff Hospitalization History see surgical hx KAYAK Other Hiswgul general Narrative - Reported* Type Description Date Medical History H/O TIA (transient ischemic vince ck) and stroke Medical History Fatigue Medical History Depression screening Medical History Impetigo follicularis Medical History Left hamstring muscle strain, in itial encounter Medical History Cheilitis Medical History Thyroid nodule Medical History COVID-19 Medical History Irritable bowel syndrome with di arrhea Medical History Enlarged thyroid Medical History Other primary thrombocytopenia Medical History Encounter for screening mammogra m for breast cancer Medical History Essential hypertension Medical History Cervical spondylosis Medical History Colon polyp Medical History Endometrial carcinoma Medical History Lung nodule Medical History Primary osteoarthritis of left h ip Medical History Lumbar spondylosis Medical History Type 2 diabetes chris itus with hyperglycemia, without long-term current use of insulin Medical History JOSE (generalized anxiety disorde r) Medical History Gastroesophageal ref lux disease with esophagitis without hemorrhage Medical History Hypertensive CKD (chronic kidney disease) Medical History Stage 3 chronic kidn ey disease, unspecified whether stage 3a or 3b CKD Medical History Primary osteoarthritis of right shoulder Medical History Hip pain, left Medical History Chronic pain Medical History Pain in right shoulder Medical History Ceruminosis, bilateral Medical History High risk medication use Medical History Acute pain of right foot Surgical History hysterectomy Surgical History knee replacement Surgical History rotator cuff Surgical History thyroid nodule biopsy Surgical History cholecystectomy Hospitalization History see surgical hx Hospitalization History dythesia/clumsiness 07/30 22 KAYAK Other History general Narrative - Reported* Type Description Date Medical History H/O TIA (transient ischemic vince ck) and stroke Medical History Fatigue Medical History Depression screening Medical History Impetigo follicularis Medical History Left hamstring muscle strain, in itial encounter Medical History Cheilitis Medical History Thyroid nodule Medical History COVID-19 Medical History Irritable bowel syndrome with di arrhea Medical History Enlarged thyroid Medical History Other primary thrombocytopenia Medical History Encounter for screening mammogra m for breast cancer Medical History Essential hypertension Medical History Cervical spondylosis Medical History Colon polyp Medical History Endometrial carcinoma Medical History Lung nodule Medical History Primary osteoarthritis of left h ip Medical History Lumbar spondylosis Medical History Type 2 diabetes chris itus with hyperglycemia, without long-term current use of insulin Medical History JOSE (generalized anxiety disorde r) Medical History Gastroesophageal ref lux disease with esophagitis without hemorrhage Medical History Hypertensive CKD (chronic kidney disease) Medical History Stage 3 chronic kidn ey disease, unspecified whether stage 3a or 3b CKD Medical History Primary osteoarthritis of right shoulder Medical History Hip pain, left Medical History Chronic pain Medical History Pain in right shoulder Medical History Ceruminosis, bilateral Medical History High risk medication use Medical History Acute pain of right foot Surgical History hysterectomy Surgical History knee replacement Surgical History rotator cuff Surgical History thyroid nodule biopsy Surgical History cholecystectomy Surgical History Colonoscopy 2021 Hospitalization History see surgical hx Hospitalization History dythesia/clumsiness 07/30 22 KAYAK Other Summary Purpose Family History No Family History Records FoundNo Family History Records FoundNo Family History Records FoundNo Family History Records Found Advance Directives No Advanced Directives Records FoundNo Advanced Directives Records FoundNo Advanced Directives Records FoundNo Advanced Directives Records Found Procedure Findings Note Patient: LUIS FELIPE DAVIS MR N: [id number] Age: 84 years Sex: Female : 1935 Associated Diagnoses: None Author: Vikram Cervantes Jr, DO Postoperative Information Post Operative Note: Post Anesthesia Care Unit. Anesthetic utilized: Monitored anesthesia care. Health Status Allergies: Allergic Reactions (Selected) Severity Not Documented Allergy to penicillin- No reactions were documented. Sulfamethoxazole- No reactions were documented. Tetanus- No reactions were documented. Problem list: All Problems Resolved: Diabetes mellitus / SNOMED CT 660653255 Resolved: Hypertension / SNOMED CT 01728050 Resolved: Neuropathy / SNOMED CT 5975480042 Resolved: Uterine cancer / SNOMED CT 7418390496 Physical Examination Vital Signs 06/14/2019 12:40 EST Heart Rate Monitored 71 bpm Respiratory Rate Monitored 29.0 br/min Systolic Blood Pressure 150 mmHg HI Diastolic Blood Pressure 80 mmHg SpO2 97 % 06/14/2019 12:35 EST Heart Rate Monitored 77 bpm Respiratory Rate Monitored 19.0 br/min Systo (more content not included)... Note Patient: LUIS FELIPE DAVIS MR N: [id number] Age: 84 years Sex: Female : 1935 Associated Diagnoses: None Author: Nat Aguilar Results Review Original Procedure Date 06/14/2019 Revised repeat colonoscopy interval None Adenomatous polyp(s) present Advanced neoplasm greater than 10mm, high grade dysplasia, villous component Adenocarcinoma present No Serrated lesion(s) present No Hyperplastic polyp(s) present No Note [facility]OUT Clinical Discharge Summary PERSON INFORMATION Name LUIS FELIPE DAVIS Age 85 Years 1935 Sex FEMALE Language [place] PCP Lazaro Bergman Marital Status Med Service Observation Acct# Arrival 01/30/2020 21:16:46 Visit Reason Weakness; Cough; COVID POSITIVE, HYPERGLYCEMIA Acuity LOS 000 12:35 Address: [address] [place] [id number] Comment: PROVIDER INFORMATION VITALS INFORMATION Vital Sign Triage Latest Temp Oral Temp Temporal Temp Intravascular Temp Axillary Temp Rectal 02 Sat 95 % 95 % Respiratory Rate Peripheral Pulse Rate Apical Heart Rate Blood Pressure / 74 mmHg / 79 mmHg Comment: MEDICAL INFORMATION Allergy Info: tetanus/diphth/pertuss (Tdap) adult/adol; sulfa drug; penicillin Prescriptions Given: carvedilol (Coreg 12.5 mg oral tablet) 1 tab(s) Oral 2 times a day. glimepiride (glimepiride 2 mg oral tablet) 1 tab(s) Oral every day. hydroCHLOROthiazide (hydroCHLOROthiazide 25 mg oral tablet) 1 tab(s) Oral (more content not included)... Hospital Course Note [facility] Clinical Discharge Summary PERSON INFORMATION Name LUIS FELIPE DAVIS Age 85 Years 1935 Sex FEMALE Language [place] PCP Lazaro Bergman Marital Status Med Service Observation Acct# Arrival 01/30/2020 21:16:46 Visit Reason Weakness; Cough; COVID POSITIVE, HYPERGLYCEMIA Acuity LOS 000 12:35 Address: [address] [place] [id number] Comment: PROVIDER INFORMATION VITALS INFORMATION Vital Sign Triage Latest Temp Oral Temp Temporal Temp Intravascular Temp Axillary Temp Rectal 02 Sat 95 % 95 % Respiratory Rate Peripheral Pulse Rate Apical Heart Rate Blood Pressure / 74 mmHg / 79 mmHg Comment: MEDICAL INFORMATION Allergy Info: tetanus/diphth/pertuss (Tdap) adult/adol; sulfa drug; penicillin Prescriptions Given: carvedilol (Coreg 12.5 mg oral tablet) 1 tab(s) Oral 2 times a day. glimepiride (glimepiride 2 mg oral tablet) 1 tab(s) Oral every day. hydroCHLOROthiazide (hydroCHLOROthiazide 25 mg oral tablet) 1 tab(s) Oral (more content not included)... Additional Source Comments INFORMATION SOURCE (unrecogn ized section and content) DATE CREATED AUTHOR 09/07/2019 [facility] DATE CREATED AUTHOR AUTHOR'S ORGANIZ ATION 04/29/2020 [facility] DATE CREATED AUTHOR AUTHOR'S ORGANIZ ATION 11/22/2022 [facility] DATE CREATED AUTHOR AUTHOR'S ORGANIZ ATION 05/06/2023 [facility] Goals (unrecognized section and content) Goals may be documented in a n alternate sectionNo InformationNo InformationNo InformationNo InformationNo InformationNo InformationNo InformationNo InformationNo InformationNo InformationNo InformationNo InformationNo InformationNo InformationNo InformationNo InformationNo Information REASON FOR VISIT (unrecogniz ed section and content) MODERNA VACCINE BOOSTERDiabe tesDX Code neededNo InformationTBH3 MONTH FOLLOW UPNo InformationHivesNo Information3 month Follow upMWEDEXA/mammogram resultsdiccussion about MRI done at pain clinic3 month Follow upSCRATCHY SORE, LOTS OF PHLEMCOUGHrefillEars/ Leg Pain FOR RECORDS PERTAINING TO PATIENTS WHO ARE OR HAVE BEEN ENROLLED IN A CHEMICAL DEPENDENCY/SUBSTANCEABUSE PROGRAM, SOME INFORMATION MAY BE OMITTED. This clinical summary was aggregated from multiple sources. Caution should be exercised in using it in the provision of clinical care. This summary normalizes information from multiple sources, and as a consequence, information in this document may materially change the coding, format and clinical context of patient data. In addition, data may be omitted in some cases. CLINICAL DECISIONS SHOULD BE BASED ON THE PRIMARY CLINICAL RECORDS. [employer] [facility]. provides no warranty or guarantee of the accuracy or completeness of information in this document.
--- NOTE | 2023-11-16 10:49 | P.CN_ITS ---
Consult Note: HPI Data of Consult Patient: known to practice within the last 3 years Requesting Physician: Stella Torres NP Primary Care Provider: Lazaro Bergman DO Consult Narrative Reason for consult: MRI f/u Narrative: Jamilah Childers a pleasant 88 year old female presents for evaluation and management of low back pain, bilateral hip pain. Prior hip xrays consistent with OA, prior MRI of lumbar spine shows multilevel degenerative changes and moderate to severe canal stenosis. Pain today 4/10, increasing to 7-8/10, in low back radiating to groin and thighs, pain increased with activity walking and stairs, decreased with rest. Patient denies loss of bowel or bladder. Has not been evaluated by NS, no interest in surgery. Continues to find benefit from current medication regimen. Patient meeting with rheumatology and orthopedics. cc:: CC: Stella Torres NP Review of Systems ROS Status of ROS 10 or more systems reviewed and unremark able except as noted in history and below Musculoskeletal Reports: back pain and joint pain Meds Home Medications and Allergies Home Medications ?Medication ?Instructions ?Recorded ?Confirmed ?Type acetaminophen 300 mg-codeine 30 mg 1 tab PO DAILY 02/17/23 02/17/23 History tablet aspirin 81 mg capsule 81 mg PO DAILY 02/17/23 02/17/23 History carvedilol 12.5 mg tablet 12.5 mg PO BID 02/17/23 02/17/23 History glimepiride 4 mg tablet 4 mg PO DAILY 02/17/23 02/17/23 History hydrochlorothiazide 25 mg tablet 25 mg PO DAILY 02/17/23 02/17/23 History lisinopril 10 mg tablet 10 mg PO DAILY 02/17/23 02/17/23 History pioglitazone 15 mg tablet 15 mg PO DAILY 02/17/23 02/17/23 History sertraline 100 mg tablet 100 mg PO DAILY 02/17/23 02/17/23 History acetaminophen 300 mg-codeine 30 mg 1 tab PO DAILY PRN pain #30 tabs 05/12/23 Rx tablet acetaminophen 300 mg-codeine 30 mg 1 tab PO QDAY PRN pain #30 tabs 10/12/23 Rx tablet Allergies Allergy/AdvReac Type Severity Reaction Status Date / Time Penicillins Allergy Severe Rash Verified 02/17/23 10:44 Sulfa (Sulfonamide Allergy Severe Rash Verified 02/17/23 10:44 Antibiotics) tetanus immune globulin Allergy Severe Verified 02/17/23 10:44 Exam Constitutional Documenting provider has reviewed patient's vital signs: yes Common normals: no apparent distress, oriented x3, healthy appearing, alert and well nourished General appearance: cooperative Nutritional appearance: overweight HENMT Common normals: normocephalic, hearing grossly normal bilaterally and moist oral mucous membranes Head and scalp: normocephalic Mouth: oral and palatal mucosa normal Eye Common normals: PERRL Pupil: PERRL Neck & C-Spine Common normals: full ROM General: normal visual inspection Cervical spine: cervical ROM normal Chest Common normals: inspection of chest normal Respiratory Common normals: normal respiratory effort, no retractions and no use of accessory muscles Back & Pelvis Common normals: thoracic and lumbar spine normal to inspection Thoracic spine/upper back: normal to inspection and thoracic ROM normal Lumbar spine/lower back: normal to inspection, ROM limited, pain with ROM and straight leg raise negative bilaterally Sacroiliac joints: SI joint(s) abnormal Other: intermittent numbness/pain starting at left low back radiating to lateral/anterior thigh and left ankle, these symptoms come and go weakness with ambulation and long periods of standing bilateral positive faith(patricks), gaenslens, thigh thrust, compression test Extremity Common normals: normal to inspection, full ROM, normal capillary refill and no clubbing, cyanosis or edema Neuro Common normals: oriented x3, CN's II-XII intact bilaterally, moves all extremities, no focal motor deficits, no sensory deficits noted and deep tendon reflexes 2+ bilaterally Sensorium/orientation: alert Gait (neuro): antalgic Motor exam: strength 5/5 throughout and no movement abnormalities noted Psych Common normals: mental status grossly normal, thought process normal, cooperative, affect normal, speech normal and activity/motor behavior normal Speech: normal speech Thought process: normal thought process Results Additional Findings Additional findings: If on a controlled substance or opioids, I have checked an [place]AR[place] report on this patient and there are no aberrancies noted in the prescribing history.??If on a controlled substance or opioid a drug screen was completed and reviewed within the last year, and if there has not been a drug screen completed we ordered one today to monitor higher risk, state monitored pain medication use. As part of providing excellent, safe, comprehensive care, the following was completed at our patient's visit: 1. A medication reconciliation and review to ensure accurate knowledge of current/active medications, including asking our patients to inform us about any [id number] medications or herbal remedies/nutritional supplements/alternative remedies. 2. A review to specifically ensure our patients have had annual screening for screening for depression, screening for tobacco use, and screening for unhealthy alcohol use. For concerning screenings had a discussion with the patient, provided patient education, and recommended follow-up with primary care provider when appropriate. If patient noted with a risk of falling, they received education on strength, gait, and balance training to prevent future risk of falling. 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 The patient does not report intolerable side effects. The patient is NOT opioid naive and non-pharmacologic and non-opioid treatment has failed to significantly relieve the patient's pain and improve functionality. The patient has a diagnosis that is related to a somatic or visceral pain etiology. ? ?? I reviewed with the patient the potential risks and side effects with the use of? opioid medications including but not limited to respiratory depression,? sedation, and even . I verified the patient has access to naloxone should? these effects occur. I advised the patient to avoid the use of any other? sedation substances including alcohol, THC, and benzodiazepines while? taking opioid medications due to the risk of compounding side effects and? detrimental outcomes. I reviewed the CATHODE BUILDER, pain treatment agreement, urine? drug screen, and opioid start talking forms. The patient was advised to let? their family know they had Naloxone in case they would need to administer? the medication.? ?? A drug screen was completed within the last year, and no aberrancies were noted regarding their use of controlled substances. The patient understands they are subject to the terms and conditions of the pain contract that they have signed. ? ?? I have checked an OARRS report on this patient today and there are no aberrancies noted in the prescribing history.? (4) Lumbar spondylosis: (5) Osteopenia: Plan continue current medications, tolerating well without side effects update UDS today f/u 3 months for medication management unless PCP takes over medications, patient is not interested in interventional therapy and would like to eliminate PM if possible. Upcoming rheumatology consult, following with orthopedics for knee pain.
== END 2023-11-16 10:24 | disposition home or self-care (01) ==
LOC: PM 10:23
PROVIDERS: PCP Internal Medicine; Visit Provider Nurse Practitioner
DX: M48.062 Spinal stenosis, lumbar region with neurogenic claudication (principal); M54.16 Radiculopathy, lumbar region; Z79.891 Long term (current) use of opiate analgesic; M47.816 Spondylosis without myelopathy or radiculopathy, lumbar region; M85.80 Other specified disorders of bone density and structure, unspecified site
CPT/HCPCS: G0463

== ENCOUNTER 2023-12-26 11:10 | Outpatient (OUT) | payer MEDICARE, OTHER, SELFPAY ==
[2023-12-26 11:57] LABS: Estimated Average Glucose 146 mg/dL; Glycohemoglobin A1C 6.7 % (4.5-6.2)
[2023-12-26 12:14] LABS: Percent Iron Saturation 9.8 %
[2023-12-26 12:16] LABS: Thyroid Stimulating Hormone 2.563 uIU/mL (0.358-3.740)
[2023-12-26 12:26] LABS: Basophils Absolute Auto 0.1 10^3/uL (0.0-0.1); Basophils Percent Auto 0.7 % (0.2-2.0); Eosinophils Absolute Auto 0.5 10^3/uL (0.0-0.7); Eosinophils Percent Auto 5.5 % (0.9-7.0); Hematocrit 38.4 % (36.0-48.0); Hemoglobin 11.6 g/dL (12.0-16.0); Immature Granulocytes Abs Auto 0.02 10^3/uL (0.00-0.03); Immature Granulocytes Pct Auto 0.2 % (0.0-0.5); Lymphocytes Absolute Auto 2.3 10^3/uL (1.2-3.8); Lymphocytes Percent Auto 27.4 % (20.5-60.0); Mean Corpuscular HGB Conc 30.2 g/dL (29.9-35.2); Mean Corpuscular Hemoglobin 28.7 pg (26.7-34.0); Mean Platelet Volume 10.9 fL (9.5-13.5); Monocytes Absolute Auto 0.5 10^3/uL (0.3-0.8); Monocytes Percent Auto 6.4 % (1.7-12.0); Neutrophils Percent Auto 59.8 % (43.0-75.0); Platelet Count 186 10^3/uL (150-450); Red Blood Count 4.04 10^6/uL (4.20-5.40); White Blood Count 8.4 10^3/uL (4.0-11.0)
== END 2023-12-26 11:11 | disposition home or self-care (01) ==
PROVIDERS: PCP Internal Medicine; Visit Provider Internal Medicine
DX: L65.9 Nonscarring hair loss, unspecified (principal); R53.83 Other fatigue; E11.65 Type 2 diabetes mellitus with hyperglycemia; C54.1 Malignant neoplasm of endometrium; I10 Essential (primary) hypertension
CPT/HCPCS: 36415; 82728; 83036; 83540; 83550; 84443; 85025